=== PATIENT | male | born 1935 | race Caucasian/White ===

== ENCOUNTER 2017-09-03 14:49 | Inpatient (IN) | payer MEDICARE ==
[~2017-09-03] VITALS: Ht 182.9 cm; Wt 81.0 kg
[2017-09-03] VITALS (10 sets, daily range): BP systolic 112–113; BP diastolic 74–76; PULSE 68–70; RESP 16–18; TEMP 97.5–98.8; O2SAT 98–100
[~2017-09-03 14:49] MED LIST: AMLO5TAB96 PO; ASPI325T PO; CARV6.25 PO; CLON-352 PO; CLON.1 PO; DIAZ5 PO; HYDR25TA35 PO; LEVO.125 PO; NEUR600T PO; PACE200T4 PO; POTA-243 PO; PRAV80TA PO; PRED20 PO; SPIR25 PO; TAB-TAB PO; VITA500015 PO
[2017-09-03] MEDS ORDERED: SODIUM CHLORIDE 0.9% FLUSH 10 ML FLUSH IVF PRN (15:30)
[2017-09-03] MEDS ORDERED: FUROSEMIDE 40 MG/4 ML VIAL IV PUSH ONE (15:30)
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
[2017-09-03 15:49] LABS: AUTOMATED NEUTROPHIL # 2.8 TH/MM3 (1.8-7.7); BASOPHIL # 0.1 TH/MM3 (0-0.2); EOSINOPHIL # 0.1 TH/MM3 (0-0.4); EOSINOPHIL % 2.7 % (0.0-4.0); HEMOGLOBIN 13.7 GM/DL (13.0-17.0); LYMPH % 31.1 % (9.0-44.0); LYMPHOCYTE # 1.5 TH/MM3 (1.0-4.8); MEAN CELL VOLUME 90.9 FL (80.0-100.0); MEAN CORPUSCULAR HEMOGLOBIN 29.6 PG (27.0-34.0); MEAN CORPUSCULAR HGB CONC 32.6 % (32.0-36.0); MEAN PLATELET VOLUME 8.9 FL (7.0-11.0); MONO % 6.9 % (0.0-8.0); MONOCYTE # 0.3 TH/MM3 (0-0.9); NEUT % 57.3 % (16.0-70.0); PLATELET COUNT 166 TH/MM3 (150-450); RED BLOOD COUNT 4.62 MIL/MM3 (4.50-5.90); RED CELL DISTRIBUTION WIDTH 16.3 % (11.6-17.2); WHITE BLOOD COUNT 4.8 TH/MM3 (4.0-11.0)
[2017-09-03 15:59] LABS: INTERNATIONAL NORMALIZED RATIO 1.2 RATIO; PROTHROMBIN TIME - PATIENT 12.4 SEC (9.8-11.6)
[2017-09-03 16:14] LABS: ALBUMIN 3.1 GM/DL (3.4-5.0); AST (GOT) 35 U/L (15-37); BICARBONATE 32.3 MEQ/L (21.0-32.0); BLOOD UREA NITROGEN 22 MG/DL (7-18); CALCIUM 8.5 MG/DL (8.5-10.1); CHLORIDE 106 MEQ/L (98-107); CREATININE 1.53 MG/DL (0.60-1.30); GLOMERULAR FILTRATION RATE 44 ML/MIN (>89); GLUCOSE,RANDOM 86 MG/DL (74-106); MAGNESIUM 2.1 MG/DL (1.5-2.5); SODIUM (NA) 146 MEQ/L (136-145)
[2017-09-03 16:18] LABS: ALKALINE PHOSPHATASE 136 U/L (45-117); ALT (GPT) 11 U/L (12-78); TOTAL BILIRUBIN ADULT 1.1 MG/DL (0.2-1.0); TROPONIN I LESS THAN 0.02 NG/ML (0.02-0.05)
--- NOTE | 2017-09-03 16:29 | RADRPT ---
EXAM DATE/TIME: 09/03/2017 15:37 [facility] COMPARISON: No previous studies available for comparison. INDICATIONS : Chest pain MEDICAL HISTORY : Congestive heart failure. SURGICAL HISTORY : CABG. Pacemaker. ENCOUNTER: Initial ACUITY: 1 day PAIN SCORE: 2/10 LOCATION: Bilateral chest FINDINGS: Single AP view of the chest. Moderate-sized area of right lower lobe consolidation versus atelectasis and right pleural effusion. Mild left lower lobe atelectasis. No evidence of pneumothorax. Moderate cardiac silhouette enlargement. Median sternotomy wires noted. CONCLUSION: 1. Moderate-sized area of right lower lobe pulmonary consolidation/atelectasis and pleural effusion. 2. Mild left lung base atelectasis. 3. Moderate cardiac silhouette enlargement. Rico Sanchez MD on September 03, 2017 at 16:26 Board Certified Radiologist. This report was verified electronically.
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
[2017-09-03] MEDS ORDERED: ENOXAPARIN SODIUM 40 MG/0.4 ML SYRINGE SQ SCH (17:00)
[2017-09-03] MEDS ORDERED: NALOXONE HCL 0.4 MG/ML AMP IV PUSH PRN (17:00)
[2017-09-03] MEDS ORDERED: MAGNESIUM HYDROXIDE SUSP 30 ML CUP PO PRN (17:00)
[2017-09-03] MEDS ORDERED: SODIUM CHLORIDE 0.9% FLUSH 10 ML FLUSH IV FLUSH PRN (17:00)
[2017-09-03] MEDS ORDERED: POTASSIUM CHLORIDE 10 MEQ CONTROLLED RELEASE TAB PO ONE (17:00)
[2017-09-03] MEDS ORDERED: BISACODYL 10 MG SUPP RECTAL PRN (17:00)
[2017-09-03] MEDS ORDERED: SENNOSIDES 8.6 MG TAB PO PRN (17:00)
[2017-09-03] MEDS ORDERED: ONDANSETRON HCL 4 MG/2 ML VIAL IVP PRN (17:00)
[2017-09-03] MEDS ORDERED: LACTULOSE SYRUP 20 GM/30 ML CUP PO PRN (17:00)
[2017-09-03] MEDS ORDERED: ACETAMINOPHEN 325 MG TAB PO PRN (17:00)
[2017-09-03] MEDS ORDERED: TRAM50TA PO (18:00)
[2017-09-03] MEDS ORDERED: ZOLO50TA PO (18:00)
[2017-09-03] MEDS ORDERED: METOLAZONE 2.5 MG TAB PO ONE (19:45)
--- NOTE | 2017-09-03 19:51 | RADRPT ---
EXAM DATE/TIME: 09/03/2017 19:26 [facility] COMPARISON: No previous studies available for comparison. INDICATIONS : Abdominal pain. Lower left abdomen. MEDICAL HISTORY : None. SURGICAL HISTORY : None. ENCOUNTER: Subsequent ACUITY: 2 days PAIN SCORE: 7/10 LOCATION: Bilateral abdomen FINDINGS: Supine view of the abdomen was performed. The abdominal bowel gas pattern is normal. No abnormal ma sses, calcifications, or organomegaly is seen. The osseous structures are unremarkable. CONCLUSION: Benign-appearing abdomen. Harpreet Gasca MD on September 03, 2017 at 19:47 Board Certified Radiologist. This report was verified electronically.
[2017-09-03] MEDS ORDERED: DIAZEPAM 5 MG TAB PO PRN (20:00)
[2017-09-03] MEDS ORDERED: diphenhydrAMINE HCL 50 MG CAP PO PRN (20:00)
[2017-09-03] MEDS: AMIODARONE 200 MG TAB PO SCH (20:22)
[2017-09-03] MEDS: traMADol HCL 50 MG TAB PO SCH (20:22)
[2017-09-03] MEDS: DOCUSATE SODIUM 50 MG/SENNA 8.6 MG TAB PO SCH (20:23)
[2017-09-03] MEDS: GABAPENTIN 300 MG CAP PO SCH (20:23)
[2017-09-03] MEDS: POTASSIUM CHLORIDE 20 MEQ CONTROLLED RELEASE TAB PO SCH (20:23)
[2017-09-03] MEDS: SODIUM CHLORIDE 0.9% FLUSH 10 ML FLUSH IV FLUSH SCH (20:23)
[2017-09-03] MEDS: PRAVASTATIN SOD 80 MG TAB PO SCH (20:23)
[2017-09-03] MEDS: cloNIDine HCL 0.1 MG TAB PO SCH (20:25)
[2017-09-03] MEDS: DIAZEPAM 5 MG TAB PO SCH (20:54)
[2017-09-03] MEDS ORDERED: CLONIDINE HCL 0.1 MG PO SCH (21:00)
[2017-09-03] MEDS ORDERED: ACETAMINOPHEN/HYDROcodone 325 MG/5 MG TAB PO ONE (22:15)
[2017-09-04] VITALS (24 sets, daily range): BP systolic 101–126; BP diastolic 67–82; PULSE 69–70; RESP 16–18; TEMP 97.2–98.4; O2SAT 93–99
[2017-09-04 04:35] LABS: AUTOMATED NEUTROPHIL # 2.4 TH/MM3 (1.8-7.7); BASOPHIL # 0.1 TH/MM3 (0-0.2); BASOPHIL % 2.8 % (0.0-2.0); EOSINOPHIL # 0.1 TH/MM3 (0-0.4); EOSINOPHIL % 2.6 % (0.0-4.0); HEMATOCRIT 41.9 % (39.0-51.0); HEMOGLOBIN 13.4 GM/DL (13.0-17.0); LYMPH % 39.4 % (9.0-44.0); LYMPHOCYTE # 1.9 TH/MM3 (1.0-4.8); MEAN CELL VOLUME 90.8 FL (80.0-100.0); MEAN CORPUSCULAR HEMOGLOBIN 29.1 PG (27.0-34.0); MEAN CORPUSCULAR HGB CONC 32.1 % (32.0-36.0); MEAN PLATELET VOLUME 8.7 FL (7.0-11.0); MONO % 5.8 % (0.0-8.0); MONOCYTE # 0.3 TH/MM3 (0-0.9); NEUT % 49.4 % (16.0-70.0); PLATELET COUNT 161 TH/MM3 (150-450); RED BLOOD COUNT 4.61 MIL/MM3 (4.50-5.90); RED CELL DISTRIBUTION WIDTH 16.3 % (11.6-17.2); WHITE BLOOD COUNT 4.9 TH/MM3 (4.0-11.0)
[2017-09-04 04:51] LABS: BICARBONATE 26.8 MEQ/L (21.0-32.0); CALCIUM 8.3 MG/DL (8.5-10.1); CREATININE 1.39 MG/DL (0.60-1.30)
[2017-09-04] MEDS: LEVOTHYROXINE SODIUM 125 MCG TAB PO SCH (06:05)
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
[2017-09-04] MEDS: cloNIDine HCL 0.1 MG TAB PO SCH ×2 (09:00→21:00)
[2017-09-04] MEDS ORDERED: CARVEDILOL 6.25 MG TAB PO SCH (09:00)
[2017-09-04] MEDS: SODIUM CHLORIDE 0.9% FLUSH 10 ML FLUSH IV FLUSH SCH ×2 (10:24→22:43)
[2017-09-04] MEDS: FUROSEMIDE 40 MG/4 ML VIAL IV PUSH SCH (10:24)
[2017-09-04] MEDS: POTASSIUM CHLORIDE 20 MEQ CONTROLLED RELEASE TAB PO SCH ×2 (10:25→22:41)
[2017-09-04] MEDS: ASPIRIN 325 MG TAB PO SCH (10:26)
[2017-09-04] MEDS: CARVEDILOL 6.25 MG TAB PO SCH (10:26)
[2017-09-04] MEDS: DOCUSATE SODIUM 50 MG/SENNA 8.6 MG TAB PO SCH ×2 (10:26→22:42)
[2017-09-04] MEDS: SERTRALINE HCL 50 MG TAB PO SCH (10:26)
[2017-09-04] MEDS: HEPARIN SODIUM - SQ 10,000 UNITS/ML VIAL SQ SCH ×2 (10:27→22:37)
--- NOTE | 2017-09-04 11:07 | HHI.PR ---
Subjective Remarks In bed, sleepy, did not have a good sleep overnight. Less sob. Still feels very weak. No more abdominal pain. No n/v/d/c. Denies chest pain or palpitations. Objective Vitals Vital Signs Date Time Temp Pulse Resp B/P (MAP) Pulse Ox O2 Delivery O2 Flow Rate FiO2 09/04/17 10:00 69 09/04/17 09:00 69 09/04/17 08:00 97.9 69 18 101/70 (80) 99 09/04/17 08:00 69 09/04/17 08:00 99 Nasal Cannula 2.00 09/04/17 07:00 69 09/04/17 06:00 69 09/04/17 05:00 69 09/04/17 04:00 69 09/04/17 03:10 97.5 69 16 108/71 (83) 96 09/04/17 03:10 96 Nasal Cannula 2.00 09/04/17 03:00 69 09/04/17 02:00 69 09/04/17 01:00 69 09/04/17 00:00 69 09/03/17 23:05 95 Nasal Cannula 2.00 09/03/17 23:00 98 Nasal Cannula 3.00 09/03/17 23:00 97.6 70 18 112/75 (87) 98 09/03/17 23:00 69 09/03/17 22:00 68 09/03/17 21:00 68 09/03/17 20:00 68 09/03/17 19:45 Nasal Cannula 3.00 09/03/17 19:40 97.5 69 18 112/76 (88) 100 09/03/17 19:40 100 Nasal Cannula 3.50 09/03/17 19:00 69 09/03/17 18:00 68 09/03/17 17:41 09/03/17 17:30 70 09/03/17 15:28 100 Nasal Cannula 2.00 09/03/17 15:25 98.8 69 16 113/74 (87) 99 Nasal Cannula 2.00 I/O 09/03/17 09/03/17 09/03/17 09/04/17 09/04/17 09/04/17 07:00 15:00 23:00 07:00 15:00 23:00 Intake Total 480 ml Output Total 110 ml 500 ml Balance -110 ml -20 ml Intake Oral 480 ml Output Urine Total 110 ml 500 ml Bladder Scan Volume Amount 50 ml # Voids 1 1 # Bowel Movements 0 Result Diagram: 09/04/17 0358 09/04/17 0358 Imaging Last Impressions Chest X-Ray 09/03/17 1522 Signed Impressions: Service Date/Time: Sunday, September 03, 2017 15:37 - CONCLUSION: 1. Moderate-sized area of right lower lobe pulmonary consolidation/atelectasis and pleural effusion. 2. Mild left lung base atelectasis. 3. Moderate cardiac silhouette enlargement. Rico Sanchez MD Abdomen X-Ray 09/03/17 0000 Signed Impressions: Service Date/Time: Sunday, September 03, 2017 19:26 - CONCLUSION: Benign-appearing abdomen. Harpreet Gasca MD Objective Remarks GENERAL: This is a pleasant alert elderly male, well-nourished, well-developed patient, in no apparent distress. CARDIOVASCULAR: Regular rate and rhythm. RESPIRATORY: Breath sounds decreased bilaterally. Bibasilar crackles. No wheezes. GASTROINTESTINAL: Abdomen soft, non-tender, nondistended. No hepato-splenomegaly , or palpable masses. No guarding. MUSCULOSKELETAL: Extremities without clubbing, cyanosis. 3+ LE edema. No joint tenderness, effusion, or edema noted. No calf tenderness. Negative Homans sign bilaterally. NEUROLOGICAL: Awake and alert. Cranial nerves II through XII intact. Motor and sensory grossly within normal limits. Five out of 5 muscle strength in all muscle groups. Normal speech. A/P Assessment and Plan 82-year-old male with Systolic congestive heart failure now with exacerbation, per family EF low at 10 %, has AICD. Coronary artery disease with CABG and stents in the past. Chronic medical problems hypothyroidism, hypertension, hyperlipidemia, neuropathy. Monitor. Restart home medications as appropriate ED creatinine 1.53 on admission. Per family (daughter is a nurse , kidney is at baseline Cr baseline is around 2). Monitor kidney function avoid nephrotoxins if possible. Chest x-ray reviewed with right lower lobe pleural effusion, cardiomegaly Elevated BNP at 2674. Monitor Start Lasix 40 mg IV twice a day. Give one dose metolazone 2.5 mg .Monitor kidney function Replace potassium as noted low. Start potassium supplement as patient also on Lasix. Monitor electrolytes and replace as needed. Monitor on telemetry Ordered 2-D echo Consult cardiology family /patient requesting Dr Wright cardiology, ff Antiemetics laxatives as need NOTE: patient with ACEI severe allergy angioedema DVT prophylaxis SCD/teds/Lovenox Discussed Condition With Patient, family at bedside, nurse Tammy Lockhart MD Sep 04, 2017 11:07
[2017-09-04] MEDS ORDERED: POTASSIUM CHLORIDE 10 MEQ CONTROLLED RELEASE TAB PO ONE (11:15)
--- NOTE | 2017-09-04 18:13 | EKG ---
Date Performed: 09/03/2017 Time Performed: 15:41:41 PTAGE: 82 years EKG: ELECTRONIC ATRIAL PACEMAKER ELECTRONIC VENTRICULAR PACEMAKER Prolonged corrected QT interva l. ABNORMAL RHYTHM ECG PREVIOUS TRACING : 09/17/2011 17.14 DOCTOR: Ej Navarrete Interpretating Date/Time 09/04/2017 18:12:12
[2017-09-04] MEDS: GABAPENTIN 300 MG CAP PO SCH (22:39)
[2017-09-04] MEDS: PRAVASTATIN SOD 80 MG TAB PO SCH (22:40)
[2017-09-04] MEDS: AMIODARONE 200 MG TAB PO SCH (22:40)
[2017-09-04] MEDS: traMADol HCL 50 MG TAB PO SCH (22:41)
[2017-09-04] MEDS: DIAZEPAM 5 MG TAB PO SCH (22:42)
[2017-09-05] VITALS (31 sets, daily range): BP systolic 115–123; BP diastolic 65–85; PULSE 62–72; RESP 17–18; TEMP 97.4–98.4; O2SAT 95–99
[2017-09-05 05:14] LABS: AUTOMATED NEUTROPHIL # 2.4 TH/MM3 (1.8-7.7); BASOPHIL # 0.1 TH/MM3 (0-0.2); BASOPHIL % 1.8 % (0.0-2.0); EOSINOPHIL # 0.2 TH/MM3 (0-0.4); EOSINOPHIL % 4.5 % (0.0-4.0); HEMOGLOBIN 12.9 GM/DL (13.0-17.0); LYMPH % 31.9 % (9.0-44.0); LYMPHOCYTE # 1.4 TH/MM3 (1.0-4.8); MEAN CELL VOLUME 91.1 FL (80.0-100.0); MEAN CORPUSCULAR HEMOGLOBIN 29.4 PG (27.0-34.0); MEAN CORPUSCULAR HGB CONC 32.2 % (32.0-36.0); MEAN PLATELET VOLUME 8.8 FL (7.0-11.0); MONO % 6.8 % (0.0-8.0); MONOCYTE # 0.3 TH/MM3 (0-0.9); PLATELET COUNT 163 TH/MM3 (150-450); RED BLOOD COUNT 4.39 MIL/MM3 (4.50-5.90); RED CELL DISTRIBUTION WIDTH 16.4 % (11.6-17.2); WHITE BLOOD COUNT 4.4 TH/MM3 (4.0-11.0)
[2017-09-05 05:36] LABS: BICARBONATE 30.1 MEQ/L (21.0-32.0); CALCIUM 8.5 MG/DL (8.5-10.1); CREATININE 1.41 MG/DL (0.60-1.30)
[2017-09-05] MEDS: LEVOTHYROXINE SODIUM 125 MCG TAB PO SCH (05:53)
--- NOTE | 2017-09-05 07:35 | HHI.PR ---
Subjective Remarks Feels less sob. He is however still complaining of lower abdominal pain .Says she had a BM/ No fever or chills.No cough. LE edema improved some. Objective Vitals Vital Signs Date Time Temp Pulse Resp B/P (MAP) Pulse Ox O2 Delivery O2 Flow Rate FiO2 09/05/17 07:14 69 09/05/17 07:14 Nasal Cannula 2.00 09/05/17 06:01 69 09/05/17 05:00 69 09/05/17 04:00 69 09/05/17 03:33 98.4 70 17 120/83 (95) 96 09/05/17 03:00 69 09/05/17 03:00 96 Nasal Cannula 2.00 09/05/17 02:00 69 09/05/17 01:05 69 09/05/17 00:00 69 09/04/17 23:52 18 09/04/17 23:01 98 Nasal Cannula 2.00 09/04/17 23:00 97.2 70 17 126/82 (97) 98 09/04/17 23:00 69 09/04/17 21:00 69 09/04/17 19:00 93 Nasal Cannula 2.00 09/04/17 19:00 98.4 70 16 107/71 (83) 93 09/04/17 19:00 69 09/04/17 18:00 69 09/04/17 17:00 69 09/04/17 16:00 98 Nasal Cannula 2.00 09/04/17 16:00 69 09/04/17 15:59 98.2 69 18 118/77 (91) 98 09/04/17 15:00 69 09/04/17 14:00 69 09/04/17 13:00 69 09/04/17 12:00 98.0 69 18 112/67 (82) 99 09/04/17 12:00 69 09/04/17 11:31 99 Nasal Cannula 2.00 09/04/17 11:00 69 09/04/17 10:00 69 09/04/17 09:00 69 09/04/17 08:00 97.9 69 18 101/70 (80) 99 09/04/17 08:00 69 09/04/17 08:00 99 Nasal Cannula 2.00 I/O 1/29/18 1/09/04/17 09/05/17 09/05/17 09/05/17 07:00 15:00 23:00 07:00 15:00 23:00 Intake Total 480 ml 565 ml 240 ml Output Total 500 ml 925 ml 550 ml Balance -20 ml -360 ml -310 ml Intake Oral 480 ml 565 ml 240 ml Output Urine Total 500 ml 925 ml 550 ml Bladder Scan Volume Amount 50 ml # Voids 1 # Bowel Movements 0 0 Result Diagram: 09/05/17 0356 09/05/17 0356 Imaging Last Impressions Chest X-Ray 09/03/17 1522 Signed Impressions: Service Date/Time: Sunday, September 03, 2017 15:37 - CONCLUSION: 1. Moderate-sized area of right lower lobe pulmonary consolidation/atelectasis and pleural effusion. 2. Mild left lung base atelectasis. 3. Moderate cardiac silhouette enlargement. Rico Sanchez MD Abdomen X-Ray 09/03/17 0000 Signed Impressions: Service Date/Time: Sunday, September 03, 2017 19:26 - CONCLUSION: Benign-appearing abdomen. Harpreet Gasca MD Objective Remarks GENERAL: This is a pleasant alert elderly male, well-nourished, well-developed patient, in no apparent distress. CARDIOVASCULAR: Regular rate and rhythm. RESPIRATORY: Breath sounds decreased bilaterally. Bibasilar crackles. No wheezes. GASTROINTESTINAL: Abdomen soft, non-tender, nondistended. No hepato-splenomegaly , or palpable masses. No guarding. MUSCULOSKELETAL: Extremities without clubbing, cyanosis. 3+ LE edema. No joint tenderness, effusion, or edema noted. No calf tenderness. Negative Homans sign bilaterally. NEUROLOGICAL: Awake and alert. Cranial nerves II through XII intact. Motor and sensory grossly within normal limits. Five out of 5 muscle strength in all muscle groups. Normal speech. A/P Assessment and Plan 82-year-old male with Systolic congestive heart failure now with exacerbation, per family EF low at 10 %, has AICD. Coronary artery disease with CABG and stents in the past. Chronic medical problems hypothyroidism, hypertension, hyperlipidemia, neuropathy. Monitor. Restart home medications as appropriate ED creatinine 1.53 on admission. Per family (daughter is a nurse , kidney is at baseline Cr baseline is around 2). Monitor kidney function avoid nephrotoxins if possible. Chest x-ray reviewed with right lower lobe pleural effusion, cardiomegaly Elevated BNP at 2674. Monitor Start Lasix 40 mg IV twice a day. Give one dose metolazone 2.5 mg .Monitor kidney function Replace potassium as noted low. Start potassium supplement as patient also on Lasix. Monitor electrolytes and replace as needed. Monitor on telemetry Ordered 2-D echo Consult cardiology family /patient requesting Dr Wright cardiology, ff . Discussed with Dr Wright OK to DC from cardiac standpoint Antiemetics laxatives as need NOTE: patient with ACEI severe allergy angioedema DVT prophylaxis SCD/teds/Lovenox Discussed Condition With Patient, nurse, cardiology Dr Kyle SIMON plan: Poss DC tomorrow Tammy Lockhart MD Sep 05, 2017 07:35
[2017-09-05] MEDS ORDERED: POTASSIUM CHLORIDE 10 MEQ CONTROLLED RELEASE TAB PO ONE (07:45)
--- NOTE | 2017-09-05 08:18 | PD.CARD.PN ---
Subjective Subjective Remarks Complains of lower abdominal discomfort. Denies any chest pain, shortness breath, or palpitations. Reports good urine output and had negative fluid balance overnight. (Rodolfo Ca) Objective Medications Current Medications Medications (Trade) Dose Ordered Sig/Mike Route Start Time Stop Time Status Last Admin (NS Flush) 2 ml UNSCH PRN IV FLUSH 09/03/17 17:00 (NS Flush) 2 ml BID IV FLUSH 09/03/17 21:00 09/04/17 22:43 (Tylenol) 650 mg Q4H PRN PO 09/03/17 17:00 (Zofran Inj) 4 mg Q6H PRN IVP 09/03/17 17:00 09/04/17 03:42 (Narcan Inj) 0.4 mg UNSCH PRN IV PUSH 09/03/17 17:00 (Maddie-Colace) 1 tab BID PO 09/03/17 21:00 09/04/17 22:42 (Milk Of Magnesia Liq) 30 ml Q12H PRN PO 09/03/17 17:00 (Senokot) 17.2 mg Q12H PRN PO 09/03/17 17:00 (Dulcolax Supp) 10 mg DAILY PRN RECTAL 09/03/17 17:00 (Lactulose Liq) 30 ml DAILY PRN PO 09/03/17 17:00 (Lasix Inj) 40 mg BID@ IV PUSH 09/04/17 09:00 09/04/17 10:24 (KCl) 20 meq Q12HR PO 09/03/17 21:00 09/04/17 22:41 (Heparin Inj) 5,000 units Q12HR SQ 09/04/17 09:00 09/04/17 22:37 (Benadryl) 50 mg HS PRN PO 09/03/17 20:00 09/03/17 23:57 (Cordarone) 200 mg HS PO 09/03/17 21:00 09/04/17 22:40 (Aspirin) 325 mg DAILY PO 09/04/17 09:00 09/04/17 10:26 (Valium) 5 mg HS PO 09/03/17 21:00 09/04/17 22:42 (Synthroid) 125 mcg DAILY@0600 PO 1/29/18 06:00 09/05/17 05:53 (Pravachol) 80 mg HS PO 09/03/17 21:00 09/04/17 22:40 (Zoloft) 50 mg DAILY PO 09/04/17 09:00 09/04/17 10:26 (Valium) 5 mg DAILY PRN PO 09/03/17 20:00 (Ultram) 50 mg HS PO 09/03/17 21:00 09/04/17 22:41 (Neurontin) 300 mg HS PO 09/03/17 21:00 09/04/17 22:39 (Catapres) 0.1 mg BID PO 09/03/17 21:00 (Coreg) 3.125 mg DAILY PO 09/04/17 09:00 09/04/17 10:26 Vital Signs / I&O Vital Signs Date Time Temp Pulse Resp B/P (MAP) Pulse Ox O2 Delivery O2 Flow Rate FiO2 09/05/17 08:06 96 Nasal Cannula 1.00 09/05/17 07:14 69 09/05/17 07:14 Nasal Cannula 2.00 09/05/17 06:01 69 09/05/17 05:00 69 09/05/17 04:00 69 09/05/17 03:33 98.4 70 17 120/83 (95) 96 09/05/17 03:00 69 09/05/17 03:00 96 Nasal Cannula 2.00 09/05/17 02:00 69 09/05/17 01:05 69 09/05/17 00:00 69 09/04/17 23:52 18 09/04/17 23:01 98 Nasal Cannula 2.00 09/04/17 23:00 97.2 70 17 126/82 (97) 98 09/04/17 23:00 69 09/04/17 21:00 69 09/04/17 19:00 93 Nasal Cannula 2.00 09/04/17 19:00 98.4 70 16 107/71 (83) 93 09/04/17 19:00 69 09/04/17 18:00 69 09/04/17 17:00 69 09/04/17 16:00 98 Nasal Cannula 2.00 09/04/17 16:00 69 09/04/17 15:59 98.2 69 18 118/77 (91) 98 09/04/17 15:00 69 09/04/17 14:00 69 09/04/17 13:00 69 09/04/17 12:00 98.0 69 18 112/67 (82) 99 09/04/17 12:00 69 09/04/17 11:31 99 Nasal Cannula 2.00 09/04/17 11:00 69 09/04/17 10:00 69 09/04/17 09:00 69 I/O 09/04/17 09/04/17 09/04/17 09/05/17 09/05/17 09/05/17 07:00 15:00 23:00 07:00 15:00 23:00 Intake Total 480 ml 565 ml 240 ml Output Total 500 ml 925 ml 550 ml Balance -20 ml -360 ml -310 ml Intake Oral 480 ml 565 ml 240 ml Output Urine Total 500 ml 925 ml 550 ml Bladder Scan Volume Amount 50 ml # Voids 1 # Bowel Movements 0 0 Physical Exam GENERAL: Well-developed well-nourished. In no acute distress. NECK: No carotid bruits. No JVD. CARDIOVASCULAR: Regular rate and rhythm. No murmur appreciated. RESPIRATORY: No accessory muscle use. Clear to auscultation. Breath sounds equal bilaterally. MUSCULOSKELETAL: No clubbing or cyanosis. Trace edema. NEUROLOGICAL: Awake and alert. Normal speech. Laboratory Laboratory Tests Test 09/05/17 03:56 White Blood Count 4.4 TH/MM3 Red Blood Count 4.39 MIL/MM3 Hemoglobin 12.9 GM/DL Hematocrit 40.0 % Mean Corpuscular Volume 91.1 FL Mean Corpuscular Hemoglobin 29.4 PG Mean Corpuscular Hemoglobin Concent 32.2 % Red Cell Distribution Width 16.4 % Platelet Count 163 TH/MM3 Mean Platelet Volume 8.8 FL Neutrophils (%) (Auto) 55.0 % Lymphocytes (%) (Auto) 31.9 % Monocytes (%) (Auto) 6.8 % Eosinophils (%) (Auto) 4.5 % Basophils (%) (Auto) 1.8 % Neutrophils # (Auto) 2.4 TH/MM3 Lymphocytes # (Auto) 1.4 TH/MM3 Monocytes # (Auto) 0.3 TH/MM3 Eosinophils # (Auto) 0.2 TH/MM3 Basophils # (Auto) 0.1 TH/MM3 CBC Comment DIFF FINAL Differential Comment Blood Urea Nitrogen 23 MG/DL Creatinine 1.41 MG/DL Random Glucose 72 MG/DL Calcium Level 8.5 MG/DL Magnesium Level 2.0 MG/DL Sodium Level 145 MEQ/L Potassium Level 3.3 MEQ/L Chloride Level 106 MEQ/L Carbon Dioxide Level 30.1 MEQ/L Anion Gap 9 MEQ/L Estimat Glomerular Filtration Rate 48 ML/MIN B-Type Natriuretic Peptide 2798 PG/ML Imaging Last Impressions Chest X-Ray 09/03/17 1522 Signed Impressions: Service Date/Time: Sunday, September 03, 2017 15:37 - CONCLUSION: 1. Moderate-sized area of right lower lobe pulmonary consolidation/atelectasis and pleural effusion. 2. Mild left lung base atelectasis. 3. Moderate cardiac silhouette enlargement. Rico Sanchez MD Abdomen X-Ray 09/03/17 0000 Signed Impressions: Service Date/Time: Sunday, September 03, 2017 19:26 - CONCLUSION: Benign-appearing abdomen. Harpreet Gasca MD (Rodolfo Ca) Assessment and Plan Assessment and Plan 82-year-old male with a past medical history of systolic CHF EF 10%, AICD/pacer , ventricular fibrillation, CAD s/p CABG HTN, HLD, hypothyroidism, chronic pain , anxiety/depression. The patient recently relocated to the area to live with his daughter from [place] and has not established with any physicians here yet, was following with cardiology Care. For the past month or so he's been having progressively worsening shortness of breath, abdominal distention, and lower extremity swelling. He's been taking Lasix 3 times a day at home with no improvement. Received IV Lasix and metolazone yesterday, reports good urine output overnight. Shortness of breath may be mildly improved overnight. Patient denies any chest pain or palpitations. Acute exacerbation of chronic systolic CHF/ Continue IV diuresis, monitor I's and O's. Ischemic cardiomyopathy EF 10%: Single-lead AICD in place, device rep to interrogate. Apparently not a candidate for BiV device, may need EP evaluation here to confirm no BiV. Echo has been ordered. Continue low-dose carvedilol./ RB with angioedema. CAD: Stable. Continue aspirin and statin. Ventricular pacer in place: Stable. Continue amiodarone. ED versus CKD: Improving. Monitor renal function with diuresis. (Rodolfo Ca) Assessment and Plan continue diuresis. CR improved. Monitor U.OP. SOB improved. DC planning for tomorrow? (Alhaji Wright MD) Rodolfo Ca Sep 05, 2017 08:18 Alhaji Wright MD Sep 05, 2017 11:54
[2017-09-05] MEDS: POTASSIUM CHLORIDE 20 MEQ CONTROLLED RELEASE TAB PO SCH ×2 (09:27→20:10)
[2017-09-05] MEDS: DOCUSATE SODIUM 50 MG/SENNA 8.6 MG TAB PO SCH ×2 (09:28→20:11)
[2017-09-05] MEDS: cloNIDine HCL 0.1 MG TAB PO SCH ×2 (09:28→20:10)
[2017-09-05] MEDS: SERTRALINE HCL 50 MG TAB PO SCH (09:28)
[2017-09-05] MEDS: CARVEDILOL 6.25 MG TAB PO SCH (09:29)
[2017-09-05] MEDS: ASPIRIN 325 MG TAB PO SCH (09:30)
[2017-09-05] MEDS: SODIUM CHLORIDE 0.9% FLUSH 10 ML FLUSH IV FLUSH SCH ×2 (09:30→20:11)
[2017-09-05] MEDS: HEPARIN SODIUM - SQ 10,000 UNITS/ML VIAL SQ SCH ×2 (09:31→20:10)
[2017-09-05] MEDS: FUROSEMIDE 40 MG/4 ML VIAL IV PUSH SCH ×2 (09:39→18:32)
--- NOTE | 2017-09-05 11:43 | ECHRPT ---
Indication: CONCLUSIONS Moderately dilated left ventricle. Wall thickness is normal. The left ventricular systolic function is severely reduced with an estimated ejection fraction less than 20%. There is diffuse global hypokinesis with distinct regional wall motion abnormalities. The right ventricle is mildly dilated. The left atrial size is [id number] dilated. The right atrial size is mildly dilated. Mild thickening of the mitral valve leaflets. Mild mitral valve regurgitation. Mitral annular calcification is present. No mitral valve stenosis. Aortic valve sclerosis is present. Mild aortic valve regurgitation. Moderate aortic valve stenosis (low gradient aortic stenosis likely due to poor cardiac output) Aortic valve area is 0.81 cm. Aortic valve mean gradient is 9 mmHg. Mild thickening of the tricuspid valve leaflets. There is mild to moderate tricuspid valve regurgitation. The estimated pulmonary arterial pressure is 33.4 mmHg. Normal estimated pulmonary pressures. BP: 101 / 70 HR: Rhythm: MEASUREMENTS (Male / Female) Normal Values Technical Quality: 2D ECHO LV Diastolic Diameter PLAX 6.2 cm 4.2 - 5.9 / 3.9 - 5.3 cm LV Systolic Diameter PLAX 5.9 cm IVS Diastolic Thickness 1.0 cm 0.6 - 1.0 / 0.6 - 0.9 cm LVPW Diastolic Thickness 1.0 cm 0.6 - 1.0 / 0.6 - 0.9 cm LV Relative Wall Thickness 0.3 RV Internal Dim ED PLAX 4.1 cm LVOT Diameter 2.3 cm Aortic Root Diameter 3.5 cm LA Systolic Diameter LX 4.6 cm 3.0 - 4.0 / 2.7 - 3.8 cm DOPPLER AV Peak Velocity 194.0 cm/s AV Peak Gradient 15.1 mmHg AV Mean Gradient 9.0 mmHg AV Velocity Time Integral 38.3 cm LVOT Peak Velocity 40.6 cm/s LVOT Peak Gradient 0.7 mmHg LVOT Velocity Time Integral 7.4 cm AV Area Cont Eq vti 0.8 cm AV Area Cont Eq pk 0.9 cm Mitral E Point Velocity 65.2 cm/s Mitral A Point Velocity 73.1 cm/s Mitral E to A Ratio 0.9 LV E' Lateral Velocity 7.6 cm/s Mitral E to LV E' Lateral Ratio 8.6 LV E' Septal Velocity 3.4 cm/s Mitral E to LV E' Septal Ratio 19.0 TR Peak Velocity 242.0 cm/s TR Peak Gradient 23.4 mmHg Right Atrial Pressure 10.0 mmHg Pulmonary Artery Systolic Pressu 33.4 mmHg Right Ventricular Systolic Press 33.4 mmHg PV Peak Velocity 43.6 cm/s PV Peak Gradient 0.8 mmHg FINDINGS LEFT VENTRICLE Moderately dilated left ventricle. Wall thickness is normal. The left ventricular systolic function is severely reduced with an estimated ejection fraction less than 20%. There is diffuse global hypokinesis with distinct regional wall motion abnormalities. RIGHT VENTRICLE The right ventricle is mildly dilated. LEFT ATRIUM The left atrial size is rlps-[id number] dilated. RIGHT ATRIUM The right atrial size is mildly dilated. ATRIAL SEPTUM Normal atrial septal thickness without atrial level shunting by limited color doppler interrogation. AORTA The aortic root and proximal ascending aorta are normal in size on limited imaging. MITRAL VALVE Mild thickening of the mitral valve leaflets. Mild mitral valve regurgitation. Mitral annular calcification is present. No mitral valve stenosis. AORTIC VALVE Trileaflet aortic valve. Aortic valve sclerosis is present. Mild aortic valve regurgitation. Moderate aortic valve stenosis (low gradient aortic stenosis likely due to poor cardiac output) Aortic valve area is 0.81 cm. Aortic valve mean gradient is 9 mmHg. TRICUSPID VALVE Mild thickening of the tricuspid valve leaflets. There is mild to moderate tricuspid valve regurgitation. The estimated pulmonary arterial pressure is 33.4 mmHg. Normal estimated pulmonary pressures. PULMONARY VALVE No pulmonary valve regurgitation or stenosis. VESSELS The inferior vena cava is normal in size. PERICARDIUM No pericardial effusion. Alhaji Wright MD, FACC Edited by: [employer] (Electronically Signed) Final Date:04 September 2017 16:36 Amended: 05 September 2017 11:41
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
[2017-09-05] MEDS: traMADol HCL 50 MG TAB PO SCH (20:09)
[2017-09-05] MEDS: GABAPENTIN 300 MG CAP PO SCH (20:09)
[2017-09-05] MEDS: AMIODARONE 200 MG TAB PO SCH (20:10)
[2017-09-05] MEDS: PRAVASTATIN SOD 80 MG TAB PO SCH (20:10)
[2017-09-05] MEDS: DIAZEPAM 5 MG TAB PO SCH (20:10)
[2017-09-05] MEDS ORDERED: DIATRIZOATE MEGLUM/DIATRIZOATE SOD 9 ML CUP PO ONE (20:15)
[2017-09-06] VITALS (27 sets, daily range): BP systolic 91–120; BP diastolic 52–79; PULSE 67–73; RESP 17–22; TEMP 96.8–98.5; O2SAT 94–98
[2017-09-06] MEDS ORDERED: ATROPINE SULFATE 1 MG/10 ML SYRINGE ONE ×2 (00:14→10:50)
[2017-09-06] MEDS ORDERED: EPINEPHrine HCL (1:10,000) 1 MG/10 ML SYRINGE ONE ×2 (00:15→10:51)
--- NOTE | 2017-09-06 00:52 | RADRPT ---
EXAM DATE/TIME: 09/06/2017 00:21 [place] COMPARISON: No previous studies available for comparison. INDICATIONS : Lower abdominal pain. ORAL CONTRAST: Prescribed oral contrast ingested. RADIATION DOSE: 6.91 CTDIvol (mGy) MEDICAL HISTORY : Congestive heart failure. Cardiovascular disease SURGICAL HISTORY : CABG Pacemaker. ENCOUNTER: Initial ACUITY: 3 months PAIN SCALE: 7/10 LOCATION: Bilateral lower quadrant TECHNIQUE: Volumetric scanning of the abdomen and pelvis was performed. Using automated exposure control and ad justment of the mA and/or kV according to patient size, radiation dose was kept as low as reasonably achievable to obtain optimal diagnostic quality images. DICOM format image data is available electro nically for review and comparison. FINDINGS: Moderate size right pleural effusion and [id number] left effusion with basilar atelectasis. There is mild ascites and anasarca as well. Small cyst left lobe liver. Spleen, adrenals and pancreas unremarkable. 5.7 cm right renal cyst and small left renal cyst also present. No bowel obstruction. No adenopathy. No free air. Incidental note made of a 3.2 cm abdominal aortic aneurysm. CONCLUSION: 1. Bilateral pleural effusion, right greater than left. Also mild ascites and anasarca. Pacer leads i n right atrium and right ventricle with cardiomegaly. 2. Mild 3.2 cm abdominal aortic aneurysm. Bilateral renal cysts and left lobe hepatic cyst. 3. Dense coronary calcifications. Aditya Aponte MD on September 06, 2017 at 0:43 Board Certified Radiologist. This report was verified electronically.
[2017-09-06 04:15] LABS: AUTOMATED NEUTROPHIL # 2.8 TH/MM3 (1.8-7.7); BASOPHIL # 0.1 TH/MM3 (0-0.2); BASOPHIL % 1.5 % (0.0-2.0); EOSINOPHIL # 0.2 TH/MM3 (0-0.4); EOSINOPHIL % 4.5 % (0.0-4.0); HEMOGLOBIN 12.3 GM/DL (13.0-17.0); LYMPHOCYTE # 1.4 TH/MM3 (1.0-4.8); MEAN CELL VOLUME 91.3 FL (80.0-100.0); MEAN CORPUSCULAR HEMOGLOBIN 29.6 PG (27.0-34.0); MEAN CORPUSCULAR HGB CONC 32.5 % (32.0-36.0); MEAN PLATELET VOLUME 8.6 FL (7.0-11.0); MONO % 6.1 % (0.0-8.0); MONOCYTE # 0.3 TH/MM3 (0-0.9); NEUT % 57.9 % (16.0-70.0); PLATELET COUNT 157 TH/MM3 (150-450); RED BLOOD COUNT 4.16 MIL/MM3 (4.50-5.90); RED CELL DISTRIBUTION WIDTH 16.4 % (11.6-17.2); WHITE BLOOD COUNT 4.8 TH/MM3 (4.0-11.0)
[2017-09-06 04:33] LABS: BICARBONATE 31.7 MEQ/L (21.0-32.0); CALCIUM 8.4 MG/DL (8.5-10.1); CREATININE 1.43 MG/DL (0.60-1.30)
[2017-09-06] MEDS: LEVOTHYROXINE SODIUM 125 MCG TAB PO SCH (06:14)
--- NOTE | 2017-09-06 08:18 | PD.CARD.PN ---
Subjective Subjective Remarks Continues to complain of lower abdominal discomfort. Continues to report shortness of breath. Denies any chest pain or palpitations. Reports urine output has decreased. (Rodolfo Ca) Objective Medications Current Medications Medications (Trade) Dose Ordered Sig/Mike Route Start Time Stop Time Status Last Admin (NS Flush) 2 ml UNSCH PRN IV FLUSH 09/03/17 17:00 (NS Flush) 2 ml BID IV FLUSH 09/03/17 21:00 09/05/17 20:11 (Tylenol) 650 mg Q4H PRN PO 09/03/17 17:00 (Zofran Inj) 4 mg Q6H PRN IVP 09/03/17 17:00 09/04/17 03:42 (Narcan Inj) 0.4 mg UNSCH PRN IV PUSH 09/03/17 17:00 (Maddie-Colace) 1 tab BID PO 09/03/17 21:00 09/05/17 09:28 (Milk Of Magnesia Liq) 30 ml Q12H PRN PO 09/03/17 17:00 (Senokot) 17.2 mg Q12H PRN PO 09/03/17 17:00 (Dulcolax Supp) 10 mg DAILY PRN RECTAL 09/03/17 17:00 (Lactulose Liq) 30 ml DAILY PRN PO 09/03/17 17:00 09/05/17 09:32 (Lasix Inj) 40 mg BID@ IV PUSH 09/04/17 09:00 09/05/17 18:32 (KCl) 20 meq Q12HR PO 09/03/17 21:00 09/05/17 20:10 (Heparin Inj) 5,000 units Q12HR SQ 09/04/17 09:00 09/05/17 20:10 (Benadryl) 50 mg HS PRN PO 09/03/17 20:00 09/03/17 23:57 (Cordarone) 200 mg HS PO 09/03/17 21:00 09/05/17 20:10 (Aspirin) 325 mg DAILY PO 09/04/17 09:00 09/05/17 09:30 (Valium) 5 mg HS PO 09/03/17 21:00 09/05/17 20:10 (Synthroid) 125 mcg DAILY@0600 PO 09/04/17 06:00 09/06/17 06:14 (Pravachol) 80 mg HS PO 09/03/17 21:00 09/05/17 20:10 (Zoloft) 50 mg DAILY PO 09/04/17 09:00 09/05/17 09:28 (Valium) 5 mg DAILY PRN PO 09/03/17 20:00 (Ultram) 50 mg HS PO 09/03/17 21:00 09/05/17 20:09 (Neurontin) 300 mg HS PO 09/03/17 21:00 09/05/17 20:09 (Catapres) 0.1 mg BID PO 09/03/17 21:00 09/05/17 20:10 (Coreg) 3.125 mg DAILY PO 09/04/17 09:00 09/05/17 09:29 Vital Signs / I&O Vital Signs Date Time Temp Pulse Resp B/P (MAP) Pulse Ox O2 Delivery O2 Flow Rate FiO2 09/06/17 08:05 96 Nasal Cannula 2.00 09/06/17 07:08 96 Room Air 09/06/17 07:08 97.8 70 18 120/76 (91) 96 09/06/17 06:03 69 09/06/17 05:04 69 09/06/17 04:03 69 09/06/17 03:19 96.8 73 17 95/62 (73) 95 09/06/17 03:18 95 Room Air 2.00 09/06/17 03:00 69 09/06/17 02:00 69 09/06/17 00:03 69 09/05/17 23:11 97.4 70 17 123/79 (94) 97 09/05/17 23:08 97 Room Air 1.00 09/05/17 23:00 69 09/05/17 22:00 69 09/05/17 21:43 17 09/05/17 21:00 69 09/05/17 20:02 96 21 09/05/17 20:00 69 09/05/17 19:38 98.2 70 17 118/78 (91) 96 09/05/17 19:00 69 09/05/17 19:00 96 Room Air 1.00 09/05/17 18:00 68 09/05/17 17:00 68 09/05/17 16:00 68 09/05/17 15:30 Room Air 1.00 09/05/17 15:30 98.0 72 18 121/65 (83) 99 09/05/17 15:00 69 09/05/17 14:00 68 09/05/17 13:00 68 09/05/17 12:00 69 09/05/17 11:00 62 09/05/17 11:00 95 Room Air 09/05/17 11:00 97.8 70 17 115/70 (85) 95 09/05/17 10:19 62 09/05/17 09:00 68 09/05/17 08:34 70 18 117/85 (96) 99 I/O 09/05/17 09/05/17 09/05/17 09/06/17 09/06/17 09/06/17 07:00 15:00 23:00 07:00 15:00 23:00 Intake Total 240 ml 900 ml 960 ml Output Total 550 ml 1000 ml 650 ml Balance -310 ml -100 ml 310 ml Intake Oral 240 ml 900 ml 960 ml Output Urine Total 550 ml 1000 ml 650 ml # Bowel Movements 2 Physical Exam GENERAL: Well-developed well-nourished. In no acute distress. NECK: No carotid bruits. No JVD. CARDIOVASCULAR: Regular rate and rhythm. No murmur appreciated. RESPIRATORY: No accessory muscle use. Clear to auscultation. Left basilar crackles. MUSCULOSKELETAL: No clubbing or cyanosis. 1+ edema. NEUROLOGICAL: Awake and alert. Normal speech. Laboratory Laboratory Tests Test 09/06/17 03:51 White Blood Count 4.8 TH/MM3 Red Blood Count 4.16 MIL/MM3 Hemoglobin 12.3 GM/DL Hematocrit 38.0 % Mean Corpuscular Volume 91.3 FL Mean Corpuscular Hemoglobin 29.6 PG Mean Corpuscular Hemoglobin Concent 32.5 % Red Cell Distribution Width 16.4 % Platelet Count 157 TH/MM3 Mean Platelet Volume 8.6 FL Neutrophils (%) (Auto) 57.9 % Lymphocytes (%) (Auto) 30.0 % Monocytes (%) (Auto) 6.1 % Eosinophils (%) (Auto) 4.5 % Basophils (%) (Auto) 1.5 % Neutrophils # (Auto) 2.8 TH/MM3 Lymphocytes # (Auto) 1.4 TH/MM3 Monocytes # (Auto) 0.3 TH/MM3 Eosinophils # (Auto) 0.2 TH/MM3 Basophils # (Auto) 0.1 TH/MM3 CBC Comment DIFF FINAL Differential Comment Blood Urea Nitrogen 23 MG/DL Creatinine 1.43 MG/DL Random Glucose 84 MG/DL Calcium Level 8.4 MG/DL Sodium Level 142 MEQ/L Potassium Level 3.4 MEQ/L Chloride Level 104 MEQ/L Carbon Dioxide Level 31.7 MEQ/L Anion Gap 6 MEQ/L Estimat Glomerular Filtration Rate 47 ML/MIN B-Type Natriuretic Peptide 2050 PG/ML Imaging Last Impressions Abdomen/Pelvis CT 09/05/17 0000 Signed Impressions: Service Date/Time: Wednesday, September 06, 2017 00:21 - CONCLUSION: 1. Bilateral pleural effusion, right greater than left. Also mild ascites and anasarca. Pacer leads in right atrium and right ventricle with cardiomegaly. 2. Mild 3.2 cm abdominal aortic aneurysm. Bilateral renal cysts and left lobe hepatic cyst. 3. Dense coronary calcifications. Aditya Aponte MD Chest X-Ray 09/03/17 1522 Signed Impressions: Service Date/Time: Sunday, September 03, 2017 15:37 - CONCLUSION: 1. Moderate-sized area of right lower lobe pulmonary consolidation/atelectasis and pleural effusion. 2. Mild left lung base atelectasis. 3. Moderate cardiac silhouette enlargement. Rico Sanchez MD Abdomen X-Ray 09/03/17 0000 Signed Impressions: Service Date/Time: Sunday, September 03, 2017 19:26 - CONCLUSION: Benign-appearing abdomen. Harpreet Gasca MD (Rodolfo Ca) Assessment and Plan Assessment and Plan 82-year-old male with a past medical history of systolic CHF EF 10%, AICD/pacer , ventricular fibrillation, CAD s/p CABG HTN, HLD, hypothyroidism, chronic pain , anxiety/depression. The patient recently relocated to the area to live with his daughter from [place] and has not established with any physicians here yet, was following with cardiology Care. For the past month or so he's been having progressively worsening shortness of breath, abdominal distention, and lower extremity swelling. He's been taking Lasix 3 times a day at home with no improvement. Received IV Lasix and metolazone yesterday, reports good urine output overnight. Shortness of breath may be mildly improved overnight. Patient denies any chest pain or palpitations. Acute exacerbation of chronic systolic CHF: Continue IV diuresis, monitor I's and O's. Many thoracentesis, defer to hospitalist. Ischemic cardiomyopathy EF 10%: Apparently not a candidate for BiV device, may need EP evaluation here to confirm no BiV. Echo with EF less than 20%. Continue low-dose carvedilol. No ACEi or ARB with angioedema. CAD: Stable. Continue aspirin and statin. Single-lead AICD/ventricular pacer in place: Device interrogated by rep 09/04 with no events noted. Stable. Continue amiodarone. Aortic valve disease: Moderate stenosis and mild regurgitation seen on echo. ED versus CKD: Improved. Monitor renal function with diuresis. (Rodolfo Ca) Assessment and Plan complicated case with severe cardiomyopathy. clinically seems to be a little improved but still SOB. edema in legs better. lungs little better but+ effusion. ?thoracentesis may help if he is willing continue current diuretic regimen. monitor Cr and urine output. only other option would be short term milrinone to improve kidney perfusion for diuresis, but hope to avoid. need to discuss care objectives with daughter (Alhaji Wright MD) Rodolfo Ca Sep 06, 2017 08:18 Alhaji Wright MD Sep 06, 2017 08:39
[2017-09-06] MEDS ORDERED: DIAZ5 PO (08:55)
[2017-09-06] MEDS ORDERED: FURO40TA PO (08:55)
[2017-09-06] MEDS ORDERED: TRAM50TA PO (08:55)
--- NOTE | 2017-09-06 08:55 | HHI.DCPOC ---
Discharge Care Plan Goals to Promote Your Health * To prevent worsening of your condition and complications * To maintain your health at the optimal level Directions to Meet Your Goals Take your medications as prescribed Follow your dietary instruction Follow activity as directed Keep your appointments as scheduled Take your immunizations and boosters as scheduled If your symptoms worsen call your PCP, if no PCP go to Urgent Care Center or Emergency Room Smoking is Dangerous to Your Health. Avoid second hand smoke Call the 24-hour hour crisis hotline for domestic abuse at Tammy Lockhart MD Sep 06, 2017 08:55
--- NOTE | 2017-09-06 08:58 | HHI.DS ---
Discharge Summary Admission Date Sep 03, 2017 at 16:39 Discharge Date: Sep 07, 2017 Admitting Diagnosis chf exacerbation, pleural effusion (1) CHF exacerbation ICD Code: I50.9 - Heart failure, unspecified Status: Acute (2) CHF (NYHA class IV, ACC/AHA stage D) ICD Code: I50.9 - Heart failure, unspecified Procedures thoracocentesis 09/06/17 Brief History - From Admission 82-year-old male with past medical history of Systolic congestive heart failure , with EF of 10% per family, AICD, hypothyroidism, hypertension, hyperlipidemia , presents with his family with difficulty breathing that has been progressive over the past couple of weeks. It is gotten worse over the past couple of days. His daughter who is a nurse states she is been giving him 60 of Lasix in the morning with 20 in the afternoon and 20 in the evening but she cannot get his fluid under control. When the ambulance team got there his oxygen level was low and they placed him on oxygen. He does not wear oxygen at home. He is from [place] and does not have a car dryer here. He feels worse when he moves around. History is mainly obtained from the family. Daughter is a nurse. Patient also complains of nausea but no vomiting, he was able to eat in the morning. He also complains of some lower abdominal pain , bladder scan doesn 't show urinary retention. Denies diarrhea or constipation, last BM was yesterday. Urine OP fairly well after lasix. Patient still with sob. No cough, fever or chills. no palpitations. Patient doesn;t have a cardiology Dr here, however would prefer Dr Wright as cardiology. CBC/BMP: 09/06/17 0351 09/06/17 0351 Significant Findings Laboratory Tests Test 09/03/17 15:33 09/04/17 03:58 09/05/17 03:56 09/06/17 03:51 Prothrombin Time 12.4 SEC (9.8-11.6) Blood Urea Nitrogen 22 MG/DL (7-18) 21 MG/DL (7-18) 23 MG/DL (7-18) 23 MG/DL (7-18) Creatinine 1.53 MG/DL (0.60-1.30) 1.39 MG/DL (0.60-1.30) 1.41 MG/DL (0.60-1.30) 1.43 MG/DL (0.60-1.30) Albumin 3.1 GM/DL (3.4-5.0) Alkaline Phosphatase 136 U/L (45-117) Alanine Aminotransferase (ALT/SGPT) 11 U/L (12-78) Total Bilirubin 1.1 MG/DL (0.2-1.0) Sodium Level 146 MEQ/L (136-145) Potassium Level 3.2 MEQ/L (3.5-5.1) 3.4 MEQ/L (3.5-5.1) 3.3 MEQ/L (3.5-5.1) 3.4 MEQ/L (3.5-5.1) Carbon Dioxide Level 32.3 MEQ/L (21.0-32.0) Estimat Glomerular Filtration Rate 44 ML/MIN (>89) 49 ML/MIN (>89) 48 ML/MIN (>89) 47 ML/MIN (>89) Troponin I LESS THAN 0.02 NG/ML B-Type Natriuretic Peptide 2674 PG/ML (0-100) 2798 PG/ML (0-100) 2050 PG/ML (0-100) Basophils (%) (Auto) 2.8 % (0.0-2.0) Calcium Level 8.3 MG/DL (8.5-10.1) 8.4 MG/DL (8.5-10.1) Chloride Level 108 MEQ/L (98-107) Red Blood Count 4.39 MIL/MM3 (4.50-5.90) 4.16 MIL/MM3 (4.50-5.90) Hemoglobin 12.9 GM/DL (13.0-17.0) 12.3 GM/DL (13.0-17.0) Eosinophils (%) (Auto) 4.5 % (0.0-4.0) 4.5 % (0.0-4.0) Random Glucose 72 MG/DL (74-106) Hematocrit 38.0 % (39.0-51.0) Imaging Last Impressions Thoracentesis Ultrasound 09/06/17 0000 Signed Impressions: Service Date/Time: Wednesday, September 06, 2017 11:02 - CONCLUSION: Uncomplicated ultrasound guided thoracentesis. Fluid was sent for ordered studies. Vladimir Olivas MD FACR Chest X-Ray 09/06/17 0000 Signed Impressions: Service Date/Time: Wednesday, September 06, 2017 11:26 - CONCLUSION: Bibasilar densities greater right lower lobe. No pneumothorax. Charan Ames MD Chest Ultrasound 09/06/17 0000 Signed Impressions: Service Date/Time: Wednesday, September 06, 2017 11:06 - CONCLUSION: No significant fluid. Vladimir Olivas MD FACR Abdomen/Pelvis CT 09/05/17 0000 Signed Impressions: Service Date/Time: Wednesday, September 06, 2017 00:21 - CONCLUSION: 1. Bilateral pleural effusion, right greater than left. Also mild ascites and anasarca. Pacer leads in right atrium and right ventricle with cardiomegaly. 2. Mild 3.2 cm abdominal aortic aneurysm. Bilateral renal cysts and left lobe hepatic cyst. 3. Dense coronary calcifications. Aditya Aponte MD Abdomen X-Ray 09/03/17 0000 Signed Impressions: Service Date/Time: Sunday, September 03, 2017 19:26 - CONCLUSION: Benign-appearing abdomen. Harpreet Gasca MD PE at Discharge GENERAL: This is a pleasant alert elderly male, well-nourished, well-developed patient, in no apparent distress. CARDIOVASCULAR: Regular rate and rhythm. RESPIRATORY: Breath sounds decreased bilaterally. Bibasilar crackles. No wheezes. GASTROINTESTINAL: Abdomen soft, non-tender, nondistended. No hepato-splenomegaly , or palpable masses. No guarding. MUSCULOSKELETAL: Extremities without clubbing, cyanosis. 3+ LE edema. No joint tenderness, effusion, or edema noted. No calf tenderness. Negative Homans sign bilaterally. NEUROLOGICAL: Awake and alert. Cranial nerves II through XII intact. Motor and sensory grossly within normal limits. Five out of 5 muscle strength in all muscle groups. Normal speech. Hospital Course 82-year-old male with Systolic congestive heart failure now with exacerbation, per family EF low at 10 %, has AICD. Coronary artery disease with CABG and stents in the past. Chronic medical problems hypothyroidism, hypertension, hyperlipidemia, neuropathy. Monitor. Restart home medications as appropriate. ED creatinine 1.53 on admission. Per family (daughter is a nurse , kidney is at baseline Cr baseline is around 2). Monitor kidney function avoid nephrotoxins if possible. Chest x-ray reviewed with right lower lobe pleural effusion, cardiomegaly Elevated BNP at 2674. Monitor Start Lasix 40 mg IV twice a day. Give one dose metolazone 2.5 mg .Monitor kidney function Replace potassium as noted low. Start potassium supplement as patient also on Lasix. Monitor electrolytes and replace as needed. Monitor on telemetry 2-D echo with EF less than 20% Consult cardiology family /patient requesting Dr Wright cardiology, ff . Discussed with Dr Wright OK to DC from cardiac standpoint Antiemetics laxatives as need NOTE: patient with ACEI severe allergy angioedema Discussed with Dr Wright cardiology, patient might benefit to have thoracentesis as with bilateral pleural effusions worse on the right. S/p thoracentesis both diagnostic and therapeutic, ~ 800 cc fluid removed. Clinically improved despite worsening BNP. Cleared by cardiology for DC, to follow up as OP. DVT prophylaxis SCD/teds/Lovenox Discussed Condition With Patient, nurse, family DC plan: Cleared by cardiology for DC. Also no plan for any GI interventions as patient with high cardiac risk. dC to rehab in stable condition expect soon decompensation Expect decompensation and readmission to the hospital as patient with very low EF, AICD, can't be on entresto as with severe reaction angioedema to ACEI. Expect frequent hospitalization for decompensation. Pt Condition on Discharge: Stable Discharge Disposition: Discharge to SNF Discharge Time: > 30 minutes Discharge Instructions DIET: Follow Instructions for: Heart Healthy Diet Activities you can perform: Regular-No Restrictions Follow up Referrals: Cardiology - 1 Week with Alhaji Wright MD PCP Follow-up - 2-3 Days New Medications: Furosemide (Furosemide) 40 Mg Tab 40 MG PO DAILY for chf, #30 TAB 0 Refills Diazepam (Valium) 5 Mg Tab 5 MG PO HS for anxiety, #20 TAB Continued Medications: Amiodarone 200 mg (Pacerone 200 mg) 200 Mg Tab 200 MG PO HS Amlodipine Besylate (Norvasc) 5 Mg Tab 5 MG PO DAILY Aspirin (Aspirin) 325 Mg Tab 325 MG PO DAILY Carvedilol 6.25 mg (Coreg 6.25 mg) 6.25 Mg Tab 6.25 MG PO DAILY Cholecalciferol (Vitamin D3) 5,000 Unit Cap 5000 UNIT PO DAILY Clonidine HCl (Adhd) (Clonidine HCl ER) 0.1 Mg Tab 0.1 MG PO BID Gabapentin (Neurontin) 600 Mg Tab 1200 MG PO DIRECTED Hydralazine HCl (Hydralazine HCl) 25 Mg Tab 25 MG PO BID Levothyroxine Sodium (Synthroid) 125 Mcg Tab 125 MCG PO DAILY Multiple Vitamin (Multivitamin) 1 Tab Tab 1 TAB PO DAILY Potassium Chloride (Klor-Con 10 Meq) 10 Meq Tabcr 20 MEQ PO HS Pravachol (Pravachol) 80 Mg Tab 80 MG PO HS Prednisone (Deltasone) 20 Mg Tab 60 MG PO DAILY, #15 TAB FOR 5 DAYS Sertraline (Zoloft) 50 Mg Tab 50 MG PO DAILY, #30 TAB 0 Refills Spironolactone (Aldactone 25 mg) 25 Mg Tab 25 MG PO DAILY Tramadol (Tramadol) 50 Mg Tab 50 MG PO Q4H PRN for PAIN, #30 TAB 0 Refills (This prescription has been renewed ) Discontinued Medications: Clonidine 0.1 mg (Catapres 0.1 mg) 0.1 Mg Tab 0.1 MG PO BID, TAB Diazepam (Diazepam) 5 Mg Tab 5 MG PO DIRECTED Tammy Lockhart MD Sep 06, 2017 08:58
[2017-09-06] MEDS: DOCUSATE SODIUM 50 MG/SENNA 8.6 MG TAB PO SCH ×2 (09:00→22:03)
[2017-09-06] MEDS ORDERED: POTASSIUM CHLORIDE 10 MEQ CONTROLLED RELEASE TAB PO ONE (09:30)
[2017-09-06 09:59] LABS: HEMOGLOBIN 13.7 GM/DL (13.0-17.0); MEAN CELL VOLUME 90.9 FL (80.0-100.0); MEAN CORPUSCULAR HEMOGLOBIN 29.5 PG (27.0-34.0); MEAN CORPUSCULAR HGB CONC 32.5 % (32.0-36.0); MEAN PLATELET VOLUME 8.5 FL (7.0-11.0); PLATELET COUNT 196 TH/MM3 (150-450); RED BLOOD COUNT 4.62 MIL/MM3 (4.50-5.90); RED CELL DISTRIBUTION WIDTH 16.8 % (11.6-17.2); WHITE BLOOD COUNT 4.6 TH/MM3 (4.0-11.0)
[2017-09-06 10:18] LABS: INTERNATIONAL NORMALIZED RATIO 1.2 RATIO; PROTHROMBIN TIME - PATIENT 12.2 SEC (9.8-11.6)
[2017-09-06] MEDS: FUROSEMIDE 40 MG/4 ML VIAL IV PUSH SCH ×2 (10:33→17:11)
[2017-09-06] MEDS: POTASSIUM CHLORIDE 20 MEQ CONTROLLED RELEASE TAB PO SCH ×2 (10:36→22:06)
[2017-09-06] MEDS: cloNIDine HCL 0.1 MG TAB PO SCH ×3 (10:36→22:03)
[2017-09-06] MEDS: CARVEDILOL 6.25 MG TAB PO SCH (10:36)
[2017-09-06] MEDS: SERTRALINE HCL 50 MG TAB PO SCH (10:37)
[2017-09-06] MEDS: HEPARIN SODIUM - SQ 10,000 UNITS/ML VIAL SQ SCH ×2 (10:38→22:09)
[2017-09-06] MEDS: ASPIRIN 325 MG TAB PO SCH (10:38)
[2017-09-06] MEDS: SODIUM CHLORIDE 0.9% FLUSH 10 ML FLUSH IV FLUSH SCH ×2 (10:40→22:07)
[2017-09-06] MEDS ORDERED: LIDOCAINE HCL 2% 100 MG/5 ML SYRINGE ONE (10:51)
--- NOTE | 2017-09-06 11:33 | RADRPT ---
EXAM DATE/TIME: 09/06/2017 09:54 [facility] COMPARISON: CHEST SINGLE AP, September 03, 2017, 15:37. INDICATIONS : Pleural effusion. MEDICAL HISTORY : Congestive heart failure. Hypertension SURGICAL HISTORY : CABG. Pacemaker. ENCOUNTER: Subsequent ACUITY: 4 - 6 days PAIN SCORE: 8/10 LOCATION: Stomach. FINDINGS: A single AP erect expiratory view of the chest was obtained. This again demonstrates a moderate size right pleural effusion without significant change. There is a small left effusion. There is no pneumo thorax. The patient is again noted be status post median sternotomy. The left subclavian AV sequentia l transvenous pacer remains in place. Multiple old healed right rib fractures are present. CONCLUSION: No significant change in the bilateral pleural effusions right greater than left. Juan Ferreira MD on September 06, 2017 at 11:22 Board Certified Radiologist. This report was verified electronically.
--- NOTE | 2017-09-06 11:57 | RADRPT ---
EXAM DATE/TIME: 09/06/2017 11:26 [facility] COMPARISON: CHEST SINGLE AP, September 06, 2017, 9:54. INDICATIONS : Post Thoracentesis MEDICAL HISTORY : Congestive heart failure. Hypertension SURGICAL HISTORY : CABG. Pacemaker. ENCOUNTER: Initial ACUITY: 1 day PAIN SCORE: 0/10 LOCATION: Right chest FINDINGS: A single frontal expiratory view of the chest was performed. Bibasilar densities, greater right lower lobe. The cardio-mediastinal contours and bronchopulmonary markings are unremarkable for an expiratory exam . Osseous structures are intact. CONCLUSION: Bibasilar densities greater right lower lobe. No pneumothorax. Charan Ames MD on September 06, 2017 at 11:51 Board Certified Radiologist. This report was verified electronically.
[2017-09-06 12:33] LABS: TOTAL PROTEIN,PLEURAL FLUID 2.2 GM/DL
[2017-09-06 12:49] LABS: PLEURAL FLUID RBC 57 /MM3 (0-0); PLEURAL FLUID WBC 182 /MM3 (0-10)
[2017-09-06 12:52] LABS: PLEURAL FLUID HISTIOCYTES 9 %; PLEURAL FLUID LYMPHS 67 %; PLEURAL FLUID MESOTHELIAL 2 %; PLEURAL FLUID MONOS 17 %; PLEURAL FLUID POLYS (SEGS) 5 %
--- NOTE | 2017-09-06 14:31 | RADRPT ---
EXAM DATE/TIME: 09/06/2017 11:02 [facility] COMPARISON: No previous studies available for comparison. INDICATIONS : Right pleural effusion. MEDICAL HISTORY : Congestive heart failure. Cardiovascular disease SURGICAL HISTORY : CABG Pacemaker. ENCOUNTER: Initial ACUITY: 1 day PAIN SCORE: 0/10 LOCATION: Right chest FLUID: Total volume of 850 cc of clear, yellow fluid was removed. Fluid was sent to lab for ordered studies. TECHNIQUE: 1. Ultrasound guidance for thoracentesis. 2. Thoracentesis. The risks, benefits, and alternatives to ultrasound guided thoracentesis were explained to the patien t in lay simple terms, including the risk of bleeding and infection. Written and verbal informed con sent was obtained. Appropriate area for thoracentesis was marked under ultrasound guidance with the patient in the uprig ht position. Overlying skin was prepped and draped in the usual sterile fashion and with local anest hetic, a dermatotomy was made with an 11 blade scalpel. A 6 Lithuanian thoracentesis catheter was placed in the pleural space and fluid was removed. Catheter was then removed and a sterile dressing applie d. There were no immediate complications. The patient tolerated the procedure well and the left the ultrasound suite in stable condition. Chest radiograph is to be obtained. CONCLUSION: Uncomplicated ultrasound guided thoracentesis. Fluid was sent for ordered studies. Vladimir Olivas MD FACR on September 06, 2017 at 14:25 Board Certified Radiologist. This report was verified electronically.
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
--- NOTE | 2017-09-06 15:06 | HHI.PR ---
Subjective Remarks Seen earlier in the morning. Patient in the chair. With sob. No chest norton at this time. No abd pain. He is complaining of neuropathic pain in his legs. Objective Vitals Vital Signs Date Time Temp Pulse Resp B/P (MAP) Pulse Ox O2 Delivery O2 Flow Rate FiO2 09/06/17 11:14 97.5 70 20 111/74 (86) 94 09/06/17 08:05 96 Nasal Cannula 2.00 09/06/17 07:08 96 Room Air 09/06/17 07:08 97.8 70 18 120/76 (91) 96 09/06/17 06:03 69 09/06/17 05:04 69 09/06/17 04:03 69 09/06/17 03:19 96.8 73 17 95/62 (73) 95 09/06/17 03:18 95 Room Air 2.00 09/06/17 03:00 69 09/06/17 02:00 69 09/06/17 00:03 69 09/05/17 23:11 97.4 70 17 123/79 (94) 97 09/05/17 23:08 97 Room Air 1.00 09/05/17 23:00 69 09/05/17 22:00 69 09/05/17 21:43 17 09/05/17 21:00 69 09/05/17 20:02 96 21 09/05/17 20:00 69 09/05/17 19:38 98.2 70 17 118/78 (91) 96 09/05/17 19:00 69 09/05/17 19:00 96 Room Air 1.00 09/05/17 18:00 68 09/05/17 17:00 68 09/05/17 16:00 68 09/05/17 15:30 Room Air 1.00 09/05/17 15:30 98.0 72 18 121/65 (83) 99 I/O 09/05/17 09/05/17 09/05/17 09/06/17 09/06/17 09/06/17 07:00 15:00 23:00 07:00 15:00 23:00 Intake Total 240 ml 900 ml 960 ml Output Total 550 ml 1000 ml 650 ml Balance -310 ml -100 ml 310 ml Intake Oral 240 ml 900 ml 960 ml Output Urine Total 550 ml 1000 ml 650 ml # Bowel Movements 2 Result Diagram: 09/06/17 0943 09/06/17 0351 Imaging Last Impressions Thoracentesis Ultrasound 09/06/17 0000 Signed Impressions: Service Date/Time: Wednesday, September 06, 2017 11:02 - CONCLUSION: Uncomplicated ultrasound guided thoracentesis. Fluid was sent for ordered studies. Vladimir Olivas MD FACR Chest X-Ray 09/06/17 0000 Signed Impressions: Service Date/Time: Wednesday, September 06, 2017 11:26 - CONCLUSION: Bibasilar densities greater right lower lobe. No pneumothorax. Charan Ames MD Chest Ultrasound 09/06/17 0000 Signed Impressions: Service Date/Time: Wednesday, September 06, 2017 11:06 - CONCLUSION: No significant fluid. Vladimir Olivas MD FACR Abdomen/Pelvis CT 09/05/17 0000 Signed Impressions: Service Date/Time: Wednesday, September 06, 2017 00:21 - CONCLUSION: 1. Bilateral pleural effusion, right greater than left. Also mild ascites and anasarca. Pacer leads in right atrium and right ventricle with cardiomegaly. 2. Mild 3.2 cm abdominal aortic aneurysm. Bilateral renal cysts and left lobe hepatic cyst. 3. Dense coronary calcifications. Aditya Aponte MD Abdomen X-Ray 09/03/17 0000 Signed Impressions: Service Date/Time: Sunday, September 03, 2017 19:26 - CONCLUSION: Benign-appearing abdomen. Harpreet Gasca MD Objective Remarks GENERAL: This is a pleasant alert elderly male, well-nourished, well-developed patient, in no apparent distress. CARDIOVASCULAR: Regular rate and rhythm. RESPIRATORY: Breath sounds decreased bilaterally. Bibasilar crackles. No wheezes. GASTROINTESTINAL: Abdomen soft, non-tender, nondistended. No hepato-splenomegaly , or palpable masses. No guarding. MUSCULOSKELETAL: Extremities without clubbing, cyanosis. 3+ LE edema. No joint tenderness, effusion, or edema noted. No calf tenderness. Negative Homans sign bilaterally. NEUROLOGICAL: Awake and alert. Cranial nerves II through XII intact. Motor and sensory grossly within normal limits. Five out of 5 muscle strength in all muscle groups. Normal speech. A/P Assessment and Plan 82-year-old male with Systolic congestive heart failure now with exacerbation, per family EF low at 10 %, has AICD. Coronary artery disease with CABG and stents in the past. Chronic medical problems hypothyroidism, hypertension, hyperlipidemia, neuropathy. Monitor. Restart home medications as appropriate. ED creatinine 1.53 on admission. Per family (daughter is a nurse , kidney is at baseline Cr baseline is around 2). Monitor kidney function avoid nephrotoxins if possible. Chest x-ray reviewed with right lower lobe pleural effusion, cardiomegaly Elevated BNP at 2674. Monitor Start Lasix 40 mg IV twice a day. Give one dose metolazone 2.5 mg .Monitor kidney function Replace potassium as noted low. Start potassium supplement as patient also on Lasix. Monitor electrolytes and replace as needed. Monitor on telemetry 2-D echo with EF less than 20% Consult cardiology family /patient requesting Dr Wright cardiology, ff . Discussed with Dr Wright OK to DC from cardiac standpoint Antiemetics laxatives as need NOTE: patient with ACEI severe allergy angioedema Discussed with Dr Wright cardiology, patient might benefit to have thoracentesis as with bilateral pleural effusions worse on the right. Will do thoracentesis both diagnostic and therapeutic DVT prophylaxis SCD/teds/Lovenox Discussed Condition With Patient, nurse, cardiology Dr Kyle SIMON plan: DC when cleared by consultants. Needs rehab Tammy Lockhart MD Sep 06, 2017 15:06
[2017-09-06] MEDS ORDERED: ACETAMINOPHEN/HYDROcodone 325 MG/5 MG TAB PO PRN (15:15)
[2017-09-06] MEDS ORDERED: LIDOCAINE HCL 1% 20 ML VIAL ONE (15:57)
--- NOTE | 2017-09-06 16:39 | HHI.GIFU ---
Subjective Remarks Patient was laying in bed, seems to be comfortable, less abdominal discomfort less abdominal distention, had CT scan of the abdomen last night Objective Vitals I&O Vital Signs Date Time Temp Pulse Resp B/P (MAP) Pulse Ox O2 Delivery O2 Flow Rate FiO2 09/06/17 11:14 97.5 70 20 111/74 (86) 94 09/06/17 08:05 96 Nasal Cannula 2.00 09/06/17 07:08 96 Room Air 09/06/17 07:08 97.8 70 18 120/76 (91) 96 09/06/17 06:03 69 09/06/17 05:04 69 09/06/17 04:03 69 09/06/17 03:19 96.8 73 17 95/62 (73) 95 09/06/17 03:18 95 Room Air 2.00 09/06/17 03:00 69 09/06/17 02:00 69 09/06/17 00:03 69 09/05/17 23:11 97.4 70 17 123/79 (94) 97 09/05/17 23:08 97 Room Air 1.00 09/05/17 23:00 69 09/05/17 22:00 69 09/05/17 21:43 17 09/05/17 21:00 69 09/05/17 20:02 96 21 09/05/17 20:00 69 09/05/17 19:38 98.2 70 17 118/78 (91) 96 09/05/17 19:00 69 09/05/17 19:00 96 Room Air 1.00 09/05/17 18:00 68 09/05/17 17:00 68 I/O 09/05/17 09/05/17 09/05/17 09/06/17 09/06/17 09/06/17 07:00 15:00 23:00 07:00 15:00 23:00 Intake Total 240 ml 900 ml 960 ml Output Total 550 ml 1000 ml 650 ml Balance -310 ml -100 ml 310 ml Intake Oral 240 ml 900 ml 960 ml Output Urine Total 550 ml 1000 ml 650 ml # Bowel Movements 2 Laboratory Laboratory Tests Test 09/06/17 03:51 09/06/17 09:43 09/06/17 11:15 White Blood Count 4.8 4.6 Red Blood Count 4.16 4.62 Hemoglobin 12.3 13.7 Hematocrit 38.0 42.0 Mean Corpuscular Volume 91.3 90.9 Mean Corpuscular Hemoglobin 29.6 29.5 Mean Corpuscular Hemoglobin Concent 32.5 32.5 Red Cell Distribution Width 16.4 16.8 Platelet Count 157 196 Mean Platelet Volume 8.6 8.5 Neutrophils (%) (Auto) 57.9 Lymphocytes (%) (Auto) 30.0 Monocytes (%) (Auto) 6.1 Eosinophils (%) (Auto) 4.5 Basophils (%) (Auto) 1.5 Neutrophils # (Auto) 2.8 Lymphocytes # (Auto) 1.4 Monocytes # (Auto) 0.3 Eosinophils # (Auto) 0.2 Basophils # (Auto) 0.1 CBC Comment DIFF FINAL Differential Comment Blood Urea Nitrogen 23 Creatinine 1.43 Random Glucose 84 Calcium Level 8.4 Sodium Level 142 Potassium Level 3.4 Chloride Level 104 Carbon Dioxide Level 31.7 Anion Gap 6 Estimat Glomerular Filtration Rate 47 B-Type Natriuretic Peptide 2050 Prothrombin Time 12.2 Prothromb Time International Ratio 1.2 Activated Partial Thromboplast Time 30.4 Pleural Fluid pH 8.0 Pleural Fluid WBC 182 Pleural Fluid RBC 57 Pleural Fluid Neutrophils 5 Pleural Fluid Lymphocytes 67 Pleural Fluid Monocytes 17 Pleural Fluid Histiocytes 9 Pleural Fluid Mesothelial Cells 2 Pleural Fluid Comment Pleural Fluid Total Protein 2.2 Pleural Fluid LDH 60 Pleural Fluid Glucose 99 Date/Time Source Procedure Growth Status 09/06/17 11:15 Fluid Pleural Fluid Fungal Smear Pending Received 09/06/17 11:15 Fluid Pleural Fluid Fungal Culture Pending Received Physical Exam HEENT: Pupils round and reactive to light; normocephalic; atraumatic; no jaundice. Throat is clear. NECK: Neck is supple, no JVD, no lymphadenopathy. CHEST: Chest is clear to auscultation and percussion. CARDIAC: Regular rate and rhythm with no murmur gallop or rubs. ABDOMEN: Soft, nondistended, nontender; no hepatosplenomegaly; bowel sounds are present in all four quadrants. EXTREMITIES: No clubbing, cyanosis, or edema. SKIN: Normal; no rash; no jaundice. SWITCH TENDER: No focal deficits; alert and oriented times three. Assessment and Plan Plan Patient was seen and examined, agree with above-noted, patient has poor cardiac function 5-10%, would not be good candidate for any procedures that require anesthesia or invasive, his hemoglobin is stable his symptom is very vague not sure if this is musculoskeletal we will plan on doing abdominal and pelvic CT with oral contrast only because his kidney functions are not good further plan depends on the findings and how the patient is 09/06/2017 patient seems to be more comfortable CT scan show large pleural effusion he had tap today, also he has anasarca which most likely causing his abdominal discomfort, minimal ascites, no significant finding in the abdomen, I had a discussion with his daughter and I think most likely this is what causing his discomfort, and we will deferred the treatment to cardiology to try to control his fluid overload which I think it will help his abdominal discomfort we will follow up as needed thank you for the consultation, Jc Moore MD Sep 06, 2017 16:39
[2017-09-06] MEDS ORDERED: GABAPENTIN 300 MG CAP PO ONE (17:00)
[2017-09-06] MEDS: DIAZEPAM 5 MG TAB PO SCH ×2 (21:00→22:03)
[2017-09-06] MEDS: PRAVASTATIN SOD 80 MG TAB PO SCH (22:03)
[2017-09-06] MEDS: GABAPENTIN 300 MG CAP PO SCH (22:06)
[2017-09-06] MEDS: AMIODARONE 200 MG TAB PO SCH (22:06)
[2017-09-06] MEDS: traMADol HCL 50 MG TAB PO SCH (22:08)
[2017-09-07] VITALS (14 sets, daily range): BP systolic 87–115; BP diastolic 54–73; PULSE 65–84; RESP 18–21; TEMP 97.3–98.9; O2SAT 95–98
[2017-09-07 04:12] LABS: AUTOMATED NEUTROPHIL # 2.8 TH/MM3 (1.8-7.7); BASOPHIL # 0.1 TH/MM3 (0-0.2); BASOPHIL % 2.1 % (0.0-2.0); EOSINOPHIL # 0.1 TH/MM3 (0-0.4); EOSINOPHIL % 2.1 % (0.0-4.0); HEMATOCRIT 40.2 % (39.0-51.0); LYMPHOCYTE # 1.4 TH/MM3 (1.0-4.8); MEAN CELL VOLUME 90.1 FL (80.0-100.0); MEAN CORPUSCULAR HEMOGLOBIN 29.2 PG (27.0-34.0); MEAN CORPUSCULAR HGB CONC 32.4 % (32.0-36.0); MEAN PLATELET VOLUME 8.5 FL (7.0-11.0); MONO % 6.7 % (0.0-8.0); MONOCYTE # 0.3 TH/MM3 (0-0.9); NEUT % 60.1 % (16.0-70.0); PLATELET COUNT 171 TH/MM3 (150-450); RED BLOOD COUNT 4.46 MIL/MM3 (4.50-5.90); RED CELL DISTRIBUTION WIDTH 16.8 % (11.6-17.2); WHITE BLOOD COUNT 4.7 TH/MM3 (4.0-11.0)
[2017-09-07 04:40] LABS: BICARBONATE 30.5 MEQ/L (21.0-32.0); CALCIUM 8.9 MG/DL (8.5-10.1); CREATININE 1.35 MG/DL (0.60-1.30)
[2017-09-07] MEDS: LEVOTHYROXINE SODIUM 125 MCG TAB PO SCH (05:51)
[2017-09-07] MEDS ORDERED: GABAPENTIN 100 MG CAP PO PRN (07:30)
--- NOTE | 2017-09-07 07:33 | PD.CARD.PN ---
Subjective Subjective Remarks Had thoracentesis yesterday. Reports shortness of breath is improved today. Reports good urine output and had negative fluid balance overnight. Denies any chest pain. Objective Medications Current Medications Medications (Trade) Dose Ordered Sig/Mike Route Start Time Stop Time Status Last Admin (NS Flush) 2 ml UNSCH PRN IV FLUSH 09/03/17 17:00 (NS Flush) 2 ml BID IV FLUSH 09/03/17 21:00 09/06/17 22:07 (Tylenol) 650 mg Q4H PRN PO 09/03/17 17:00 (Zofran Inj) 4 mg Q6H PRN IVP 09/03/17 17:00 09/04/17 03:42 (Narcan Inj) 0.4 mg UNSCH PRN IV PUSH 09/03/17 17:00 (Maddie-Colace) 1 tab BID PO 09/03/17 21:00 09/06/17 22:03 (Milk Of Magnesia Liq) 30 ml Q12H PRN PO 09/03/17 17:00 (Senokot) 17.2 mg Q12H PRN PO 09/03/17 17:00 (Dulcolax Supp) 10 mg DAILY PRN RECTAL 09/03/17 17:00 (Lactulose Liq) 30 ml DAILY PRN PO 09/03/17 17:00 09/05/17 09:32 (Lasix Inj) 40 mg BID@ IV PUSH 09/04/17 09:00 09/06/17 17:11 (KCl) 20 meq Q12HR PO 09/03/17 21:00 09/06/17 22:06 (Heparin Inj) 5,000 units Q12HR SQ 09/04/17 09:00 09/06/17 22:09 (Benadryl) 50 mg HS PRN PO 09/03/17 20:00 09/03/17 23:57 (Cordarone) 200 mg HS PO 09/03/17 21:00 09/06/17 22:06 (Aspirin) 325 mg DAILY PO 09/04/17 09:00 09/06/17 10:38 (Valium) 5 mg HS PO 09/03/17 21:00 09/05/17 20:10 (Synthroid) 125 mcg DAILY@0600 PO 09/04/17 06:00 09/07/17 05:51 (Pravachol) 80 mg HS PO 09/03/17 21:00 09/06/17 22:03 (Zoloft) 50 mg DAILY PO 09/04/17 09:00 09/06/17 10:37 (Valium) 5 mg DAILY PRN PO 09/03/17 20:00 (Ultram) 50 mg HS PO 09/03/17 21:00 09/06/17 22:08 (Neurontin) 300 mg HS PO 09/03/17 21:00 09/06/17 22:06 (Catapres) 0.1 mg BID PO 09/03/17 21:00 09/06/17 10:36 (Coreg) 3.125 mg DAILY PO 09/04/17 09:00 09/06/17 10:36 (Sassafras 5-325 Mg) 1 tab Q6H PRN PO 09/06/17 15:15 Vital Signs / I&O Vital Signs Date Time Temp Pulse Resp B/P (MAP) Pulse Ox O2 Delivery O2 Flow Rate FiO2 09/07/17 06:00 70 09/07/17 05:00 69 09/07/17 04:00 68 09/07/17 03:00 98.9 70 21 98/62 (74) 97 09/07/17 03:00 97 Nasal Cannula 1.00 09/07/17 03:00 70 09/06/17 23:10 22 09/06/17 23:00 98.5 70 22 115/79 (91) 96 09/06/17 23:00 69 09/06/17 23:00 96 Nasal Cannula 1.00 09/06/17 22:00 70 09/06/17 21:00 67 09/06/17 19:00 70 09/06/17 19:00 98.2 70 18 91/52 (65) 96 09/06/17 19:00 96 Nasal Cannula 1.00 09/06/17 18:00 69 09/06/17 17:00 69 09/06/17 16:00 69 09/06/17 16:00 Nasal Cannula 1.00 09/06/17 16:00 97.9 69 20 108/70 (83) 96 09/06/17 15:00 69 09/06/17 14:00 69 09/06/17 13:00 69 09/06/17 13:00 97.9 70 18 107/71 (83) 97 09/06/17 12:45 97.9 70 18 113/71 (85) 98 09/06/17 12:30 97.9 70 20 111/73 (86) 96 09/06/17 12:30 Nasal Cannula 1.00 09/06/17 12:30 97.9 70 20 111/73 (86) 96 09/06/17 12:15 68 09/06/17 11:14 97.5 70 20 111/74 (86) 94 09/06/17 10:00 69 09/06/17 09:00 68 09/06/17 08:05 96 Nasal Cannula 2.00 09/06/17 08:00 68 I/O 09/06/17 09/06/17 09/06/17 09/07/17 09/07/17 09/07/17 07:00 15:00 23:00 07:00 15:00 23:00 Intake Total 960 ml 600 ml 240 ml Output Total 650 ml 520 ml 500 ml Balance 310 ml 80 ml -260 ml Intake Oral 960 ml 600 ml 240 ml Output Urine Total 650 ml 520 ml 500 ml Stool Total 0 ml # Voids 2 Physical Exam GENERAL: Well-developed well-nourished. In no acute distress. NECK: No carotid bruits. No JVD. CARDIOVASCULAR: Regular rate and rhythm. Blowing systolic murmur appreciated. RESPIRATORY: No accessory muscle use. Clear to auscultation. MUSCULOSKELETAL: No clubbing or cyanosis. Trace edema. NEUROLOGICAL: Awake and alert. Normal speech. Laboratory Laboratory Tests Test 09/06/17 09:43 09/06/17 11:15 09/07/17 03:34 White Blood Count 4.6 TH/MM3 4.7 TH/MM3 Red Blood Count 4.62 MIL/MM3 4.46 MIL/MM3 Hemoglobin 13.7 GM/DL 13.0 GM/DL Hematocrit 42.0 % 40.2 % Mean Corpuscular Volume 90.9 FL 90.1 FL Mean Corpuscular Hemoglobin 29.5 PG 29.2 PG Mean Corpuscular Hemoglobin Concent 32.5 % 32.4 % Red Cell Distribution Width 16.8 % 16.8 % Platelet Count 196 TH/MM3 171 TH/MM3 Mean Platelet Volume 8.5 FL 8.5 FL Prothrombin Time 12.2 SEC Prothromb Time International Ratio 1.2 RATIO Activated Partial Thromboplast Time 30.4 SEC Pleural Fluid pH 8.0 Pleural Fluid WBC 182 /MM3 Pleural Fluid RBC 57 /MM3 Pleural Fluid Neutrophils 5 % Pleural Fluid Lymphocytes 67 % Pleural Fluid Monocytes 17 % Pleural Fluid Histiocytes 9 % Pleural Fluid Mesothelial Cells 2 % Pleural Fluid Comment Pleural Fluid Total Protein 2.2 GM/DL Pleural Fluid LDH 60 U/L Pleural Fluid Glucose 99 MG/DL Neutrophils (%) (Auto) 60.1 % Lymphocytes (%) (Auto) 29.0 % Monocytes (%) (Auto) 6.7 % Eosinophils (%) (Auto) 2.1 % Basophils (%) (Auto) 2.1 % Neutrophils # (Auto) 2.8 TH/MM3 Lymphocytes # (Auto) 1.4 TH/MM3 Monocytes # (Auto) 0.3 TH/MM3 Eosinophils # (Auto) 0.1 TH/MM3 Basophils # (Auto) 0.1 TH/MM3 CBC Comment DIFF FINAL Differential Comment Blood Urea Nitrogen 23 MG/DL Creatinine 1.35 MG/DL Random Glucose 75 MG/DL Calcium Level 8.9 MG/DL Sodium Level 143 MEQ/L Potassium Level 3.8 MEQ/L Chloride Level 105 MEQ/L Carbon Dioxide Level 30.5 MEQ/L Anion Gap 8 MEQ/L Estimat Glomerular Filtration Rate 50 ML/MIN B-Type Natriuretic Peptide 2955 PG/ML Imaging Last Impressions Thoracentesis Ultrasound 09/06/17 0000 Signed Impressions: Service Date/Time: Wednesday, September 06, 2017 11:02 - CONCLUSION: Uncomplicated ultrasound guided thoracentesis. Fluid was sent for ordered studies. Vladimir Olivas MD FACR Chest X-Ray 09/06/17 0000 Signed Impressions: Service Date/Time: Wednesday, September 06, 2017 11:26 - CONCLUSION: Bibasilar densities greater right lower lobe. No pneumothorax. Charan Ames MD Chest Ultrasound 09/06/17 0000 Signed Impressions: Service Date/Time: Wednesday, September 06, 2017 11:06 - CONCLUSION: No significant fluid. Vladimir Olivas MD FACR Abdomen/Pelvis CT 09/05/17 0000 Signed Impressions: Service Date/Time: Wednesday, September 06, 2017 00:21 - CONCLUSION: 1. Bilateral pleural effusion, right greater than left. Also mild ascites and anasarca. Pacer leads in right atrium and right ventricle with cardiomegaly. 2. Mild 3.2 cm abdominal aortic aneurysm. Bilateral renal cysts and left lobe hepatic cyst. 3. Dense coronary calcifications. Aditya Aponte MD Abdomen X-Ray 09/03/17 0000 Signed Impressions: Service Date/Time: Sunday, September 03, 2017 19:26 - CONCLUSION: Benign-appearing abdomen. Harpreet Gasca MD Assessment and Plan Assessment and Plan 82-year-old male with a past medical history of systolic CHF EF 10%, AICD/pacer , ventricular fibrillation, CAD s/p CABG HTN, HLD, hypothyroidism, chronic pain , anxiety/depression. The patient recently relocated to the area to live with his daughter from [place] and has not established with any physicians here yet, was following with [facility]. For the past month or so he's been having progressively worsening shortness of breath, abdominal distention, and lower extremity swelling. He's been taking Lasix 3 times a day at home with no improvement. Received IV Lasix and metolazone yesterday, reports good urine output overnight. Shortness of breath may be mildly improved overnight. Patient denies any chest pain or palpitations. Acute exacerbation of chronic systolic CHF: Continue IV diuresis, monitor I's and O's. Had thoracentesis 09/06 with 850 miles fluid removed. Clinically improving. Ischemic cardiomyopathy EF 10%: Apparently not a candidate for BiV device, may need EP evaluation here to confirm no BiV. Echo with EF less than 20%. Continue low-dose carvedilol. No ACEi or ARB with history of angioedema. CAD: Stable. Continue aspirin and statin. Single-lead AICD/ventricular pacer in place: Device interrogated by rep 09/04 with no events noted. Stable. Continue amiodarone. Aortic valve disease: Moderate stenosis and mild regurgitation seen on echo. ED versus CKD: Improved. Monitor renal function with diuresis. Rodolfo Ca Sep 07, 2017 07:33
--- NOTE | 2017-09-07 07:59 | HHI.PR ---
Subjective Remarks Feels much betetr today. Less LE edema; Still some abd pain. No much sob says feels better after thoracentesis yesterday. No fever or chills. UOP picking up Cleared by cardiology for DC. Patient is looking forward to go to rehab Objective Vitals Vital Signs Date Time Temp Pulse Resp B/P (MAP) Pulse Ox O2 Delivery O2 Flow Rate FiO2 09/07/17 07:37 97 Nasal Cannula 2.00 09/07/17 06:00 70 09/07/17 05:00 69 09/07/17 04:00 68 09/07/17 03:00 98.9 70 21 98/62 (74) 97 09/07/17 03:00 97 Nasal Cannula 1.00 09/07/17 03:00 70 09/06/17 23:10 22 09/06/17 23:00 98.5 70 22 115/79 (91) 96 09/06/17 23:00 69 09/06/17 23:00 96 Nasal Cannula 1.00 09/06/17 22:00 70 09/06/17 21:00 67 09/06/17 19:00 70 09/06/17 19:00 98.2 70 18 91/52 (65) 96 09/06/17 19:00 96 Nasal Cannula 1.00 09/06/17 18:00 69 09/06/17 17:00 69 09/06/17 16:00 69 09/06/17 16:00 Nasal Cannula 1.00 09/06/17 16:00 97.9 69 20 108/70 (83) 96 09/06/17 15:00 69 09/06/17 14:00 69 09/06/17 13:00 69 09/06/17 13:00 97.9 70 18 107/71 (83) 97 09/06/17 12:45 97.9 70 18 113/71 (85) 98 09/06/17 12:30 97.9 70 20 111/73 (86) 96 09/06/17 12:30 Nasal Cannula 1.00 09/06/17 12:30 97.9 70 20 111/73 (86) 96 09/06/17 12:15 68 09/06/17 11:14 97.5 70 20 111/74 (86) 94 09/06/17 10:00 69 09/06/17 09:00 68 09/06/17 08:05 96 Nasal Cannula 2.00 09/06/17 08:00 68 I/O 09/06/17 09/06/17 09/06/17 09/07/17 09/07/17 09/07/17 07:00 15:00 23:00 07:00 15:00 23:00 Intake Total 960 ml 600 ml 240 ml Output Total 650 ml 520 ml 500 ml Balance 310 ml 80 ml -260 ml Intake Oral 960 ml 600 ml 240 ml Output Urine Total 650 ml 520 ml 500 ml Stool Total 0 ml # Voids 2 Result Diagram: 09/07/17 0334 09/07/17 0334 Imaging Last Impressions Thoracentesis Ultrasound 09/06/17 0000 Signed Impressions: Service Date/Time: Wednesday, September 06, 2017 11:02 - CONCLUSION: Uncomplicated ultrasound guided thoracentesis. Fluid was sent for ordered studies. Vladimir Olivas MD FACR Chest X-Ray 09/06/17 0000 Signed Impressions: Service Date/Time: Wednesday, September 06, 2017 11:26 - CONCLUSION: Bibasilar densities greater right lower lobe. No pneumothorax. Charan Ames MD Chest Ultrasound 09/06/17 0000 Signed Impressions: Service Date/Time: Wednesday, September 06, 2017 11:06 - CONCLUSION: No significant fluid. Vladimir Olivas MD FACR Abdomen/Pelvis CT 09/05/17 0000 Signed Impressions: Service Date/Time: Wednesday, September 06, 2017 00:21 - CONCLUSION: 1. Bilateral pleural effusion, right greater than left. Also mild ascites and anasarca. Pacer leads in right atrium and right ventricle with cardiomegaly. 2. Mild 3.2 cm abdominal aortic aneurysm. Bilateral renal cysts and left lobe hepatic cyst. 3. Dense coronary calcifications. Aditya Aponte MD Abdomen X-Ray 09/03/17 0000 Signed Impressions: Service Date/Time: Sunday, September 03, 2017 19:26 - CONCLUSION: Benign-appearing abdomen. Harpreet Gasca MD Objective Remarks GENERAL: This is a pleasant alert elderly male, well-nourished, well-developed patient, in no apparent distress. CARDIOVASCULAR: Regular rate and rhythm. RESPIRATORY: Breath sounds decreased bilaterally. Bibasilar crackles. No wheezes. GASTROINTESTINAL: Abdomen soft, non-tender, nondistended. No hepato-splenomegaly , or palpable masses. No guarding. MUSCULOSKELETAL: Extremities without clubbing, cyanosis. 3+ LE edema. No joint tenderness, effusion, or edema noted. No calf tenderness. Negative Homans sign bilaterally. NEUROLOGICAL: Awake and alert. Cranial nerves II through XII intact. Motor and sensory grossly within normal limits. Five out of 5 muscle strength in all muscle groups. Normal speech. A/P Assessment and Plan 82-year-old male with Systolic congestive heart failure now with exacerbation, per family EF low at 10 %, has AICD. Coronary artery disease with CABG and stents in the past. Chronic medical problems hypothyroidism, hypertension, hyperlipidemia, neuropathy. Monitor. Restart home medications as appropriate. ED creatinine 1.53 on admission. Per family (daughter is a nurse , kidney is at baseline Cr baseline is around 2). Monitor kidney function avoid nephrotoxins if possible. Chest x-ray reviewed with right lower lobe pleural effusion, cardiomegaly Elevated BNP at 2674. Monitor Start Lasix 40 mg IV twice a day. Give one dose metolazone 2.5 mg .Monitor kidney function Replace potassium as noted low. Start potassium supplement as patient also on Lasix. Monitor electrolytes and replace as needed. Monitor on telemetry 2-D echo with EF less than 20% Consult cardiology family /patient requesting Dr Wright cardiology, ff . Discussed with Dr Wright OK to DC from cardiac standpoint Antiemetics laxatives as need NOTE: patient with ACEI severe allergy angioedema Discussed with Dr Wright cardiology, patient might benefit to have thoracentesis as with bilateral pleural effusions worse on the right. Will do thoracentesis both diagnostic and therapeutic DVT prophylaxis SCD/teds/Lovenox Discussed Condition With Patient, nurse DC plan: Cleared by cardiology for DC. Also no plan for any GI interventions as patient with high cardiac risk. Plan to DC to rehab today. Expect decompensation and readmission to the hospital as patient with very low EF , AICD, can't be on entresto as with severe reaction angioedema to ACEI. Expect frequent hospitalization for decompensation. Tammy Lockhart MD Sep 07, 2017 07:59
[2017-09-07] MEDS: POTASSIUM CHLORIDE 20 MEQ CONTROLLED RELEASE TAB PO SCH (08:33)
[2017-09-07] MEDS: cloNIDine HCL 0.1 MG TAB PO SCH (08:33)
[2017-09-07] MEDS: CARVEDILOL 6.25 MG TAB PO SCH (08:33)
[2017-09-07] MEDS: ASPIRIN 325 MG TAB PO SCH (08:33)
[2017-09-07] MEDS: HEPARIN SODIUM - SQ 10,000 UNITS/ML VIAL SQ SCH (08:33)
[2017-09-07] MEDS: SERTRALINE HCL 50 MG TAB PO SCH (08:33)
[2017-09-07] MEDS: DOCUSATE SODIUM 50 MG/SENNA 8.6 MG TAB PO SCH (08:33)
[2017-09-07] MEDS: SODIUM CHLORIDE 0.9% FLUSH 10 ML FLUSH IV FLUSH SCH (08:34)
[2017-09-07] MEDS: FUROSEMIDE 40 MG/4 ML VIAL IV PUSH SCH (08:34)
[2017-09-07] MEDS ORDERED: METOLAZONE 2.5 MG TAB PO SCH (09:00)
[2017-09-07 12:08] LABS: AMYLASE BODY FLUID 9 U/L; AMYLASE BODY FLUID TYPE PLEURAL
== END 2017-09-07 17:30 | DRG 292 ==
LOC: NEPC 14:49 → NEDA 16:39 → HCPC 17:25
PROVIDERS: ADMIT Hospitalist; ATTEND Hospitalist
PROC: 0W993ZZ Drainage of Right Pleural Cavity, Percutaneous Approach (ICD-10-PCS; principal; 2017-09-06)
PROC: 0W993ZX Drainage of Right Pleural Cavity, Percutaneous Approach, Diagnostic (ICD-10-PCS; 2017-09-06)
DX: I11.0 Hypertensive heart disease with heart failure (principal); J91.8 Pleural effusion in other conditions classified elsewhere; N17.9 Acute kidney failure, unspecified; G62.9 Polyneuropathy, unspecified; I25.5 Ischemic cardiomyopathy; I25.10 Atherosclerotic heart disease of native coronary artery without angina pectoris; H91.90 Unspecified hearing loss, unspecified ear; I50.23 Acute on chronic systolic (congestive) heart failure; E03.9 Hypothyroidism, unspecified; E78.5 Hyperlipidemia, unspecified; G89.29 Other chronic pain; I35.2 Nonrheumatic aortic (valve) stenosis with insufficiency; R10.31 Right lower quadrant pain; M19.90 Unspecified osteoarthritis, unspecified site; F32.9 Major depressive disorder, single episode, unspecified; F41.9 Anxiety disorder, unspecified; Z91.81 History of falling; Z79.82 Long term (current) use of aspirin; Z95.810 Presence of automatic (implantable) cardiac defibrillator; Z95.1 Presence of aortocoronary bypass graft; Z95.5 Presence of coronary angioplasty implant and graft; I25.2 Old myocardial infarction
CPT/HCPCS: 32555; 71045; 74018; 74176; 76604; 80048; 80053; 82150; 82550; 82552; 82945; 83615; 83735; 83880; 83986; 84157; 84484; 85025; 85027; 85610; 85730; 87015; 87070; 87102; 87116; 87205; 87206; 88112; 89051; 93005; 93306; 94150; 96374; C1729; J0171; J0461; J1644; J1650; J1940; J2405; Q0163; Q9963

== ENCOUNTER 2017-09-18 23:09 | Observation (INO) | payer MEDICARE ==
[~2017-09-18 23:09] MED LIST changes: -CLON.1 PO; +FURO40TA PO; +TRAM50TA PO; +ZOLO50TA PO
[2017-09-18 23:11] VITALS: BP 101/69; PULSE 92; RESP 16; O2SAT 95
[2017-09-18 23:24] VITALS: O2SAT 96
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
[2017-09-18 23:43] LABS: BASOPHIL # 0.1 TH/MM3 (0-0.2); BASOPHIL % 0.7 % (0.0-2.0); EOSINOPHIL % 0.6 % (0.0-4.0); HEMATOCRIT 41.5 % (39.0-51.0); HEMOGLOBIN 13.5 GM/DL (13.0-17.0); LYMPH % 20.5 % (9.0-44.0); LYMPHOCYTE # 1.4 TH/MM3 (1.0-4.8); MEAN CELL VOLUME 89.8 FL (80.0-100.0); MEAN CORPUSCULAR HEMOGLOBIN 29.2 PG (27.0-34.0); MEAN CORPUSCULAR HGB CONC 32.5 % (32.0-36.0); MEAN PLATELET VOLUME 7.9 FL (7.0-11.0); MONO % 5.8 % (0.0-8.0); MONOCYTE # 0.4 TH/MM3 (0-0.9); NEUT % 72.4 % (16.0-70.0); PLATELET COUNT 179 TH/MM3 (150-450); RED BLOOD COUNT 4.62 MIL/MM3 (4.50-5.90); RED CELL DISTRIBUTION WIDTH 17.1 % (11.6-17.2); WHITE BLOOD COUNT 6.9 TH/MM3 (4.0-11.0)
[2017-09-18 23:53] LABS: INTERNATIONAL NORMALIZED RATIO 1.2 RATIO; PROTHROMBIN TIME - PATIENT 11.7 SEC (9.8-11.6)
--- NOTE | 2017-09-18 23:56 | RADRPT ---
EXAM DATE/TIME: 09/18/2017 23:46 [facility] COMPARISON: CHEST SINGLE AP, September 06, 2017, 9:54. INDICATIONS : Short of breath. MEDICAL HISTORY : Congestive heart failure. Hypertension SURGICAL HISTORY : CABG. Pacemaker. ENCOUNTER: Initial ACUITY: 1 day PAIN SCORE: 0/10 LOCATION: Bilateral chest FINDINGS: There are moderate bilateral effusions, cardiomegaly and consolidation in the lower lobes. Sternotomy wires and pacer device again seen. CONCLUSION: Bilateral effusions and consolidation. Mike Crouch MD on September 18, 2017 at 23:54 Board Certified Radiologist. This report was verified electronically.
[2017-09-19] VITALS (27 sets, daily range): BP systolic 69–145; BP diastolic 50–90; PULSE 95–109; RESP 16–20; TEMP 97.8–98.6; O2SAT 93–99
[2017-09-19 00:02] LABS: ALBUMIN 3.1 GM/DL (3.4-5.0); AST (GOT) 49 U/L (15-37); BICARBONATE 28.5 MEQ/L (21.0-32.0); BLOOD UREA NITROGEN 33 MG/DL (7-18); CALCIUM 9.1 MG/DL (8.5-10.1); CHLORIDE 103 MEQ/L (98-107); CREATININE 1.34 MG/DL (0.60-1.30); GLOMERULAR FILTRATION RATE 51 ML/MIN (>89); GLUCOSE,RANDOM 78 MG/DL (74-106); MAGNESIUM 2.3 MG/DL (1.5-2.5); SODIUM (NA) 139 MEQ/L (136-145)
[2017-09-19 00:03] LABS: ALT (GPT) 23 U/L (12-78)
[2017-09-19 00:12] LABS: ALKALINE PHOSPHATASE 181 U/L (45-117); TOTAL BILIRUBIN ADULT 0.8 MG/DL (0.2-1.0); TOTAL PROTEIN 6.5 GM/DL (6.4-8.2); TROPONIN I 0.12 NG/ML (0.02-0.05)
--- NOTE | 2017-09-19 00:17 | RADRPT ---
EXAM DATE/TIME: 09/19/2017 00:00 [facility] COMPARISON: CT ABDOMEN & PELVIS W/O CONTRAST, September 06, 2017, 0:21. INDICATIONS : Abdomen pain. ORAL CONTRAST: No oral contrast ingested. RADIATION DOSE: 15.99 CTDIvol (mGy) MEDICAL HISTORY : Cardiovascular disease. Hypertension. SURGICAL HISTORY : Pacemaker. Paracentisis. ENCOUNTER: Initial ACUITY: 1 day PAIN SCALE: 5/10 LOCATION: Bilateral abdomen TECHNIQUE: Volumetric scanning of the abdomen and pelvis was performed. Using automated exposure control and ad justment of the mA and/or kV according to patient size, radiation dose was kept as low as reasonably achievable to obtain optimal diagnostic quality images. DICOM format image data is available electro nically for review and comparison. FINDINGS: There is coronary artery calcification, cardiomegaly, and large bilateral pleural effusions right gre ater than left again noted. There is consolidation and atelectasis of the lower lobes. Diffuse athero sclerotic calcification of the aorta and iliac vasculature noted. Infrarenal abdominal aortic aneurys m is identified measuring up to 3.2 x 3 cm in transverse and AP dimension on image 35. There is body wall edema. Urinary bladder unremarkable. Evidence of previous TURP procedure. Small amount of free f luid in the pelvis. There is diverticulosis of the sigmoid and descending colon identified without ev idence for diverticulitis or obstruction. The appendix is normal. There is no lymphadenopathy. There is a stable cyst in the left lobe of the liver, and bilateral renal cysts are again seen. The pancrea s, spleen, adrenals are unremarkable. Small fat containing umbilical hernia. Review of bone windows demonstrate degenerative changes of the spine. CONCLUSION: 1. Abdominal aortic aneurysm. 2. Atherosclerosis. 3. Liver and renal cysts. 4. Small amount free fluid in the pelvis and body wall edema, with large bilateral effusions and cons olidation. 5. Small fat containing umbilical hernia. Mike Crouch MD on September 19, 2017 at 0:13 Board Certified Radiologist. This report was verified electronically.
[2017-09-19] MEDS ORDERED: NITROGLYCERIN 2% OINT 1 GM PACKET TOPICAL ONE (01:00)
[2017-09-19] MEDS ORDERED: FUROSEMIDE 40 MG/4 ML VIAL IV PUSH ONE ×2 (01:15)
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
[2017-09-19] MEDS ORDERED: SPIR25TA PO (01:43)
[2017-09-19] MEDS ORDERED: MULT1TAB46 (01:43)
[2017-09-19] MEDS ORDERED: PRAV80TA PO (01:43)
[2017-09-19] MEDS ORDERED: GABA300C5 PO (01:55)
[2017-09-19] MEDS ORDERED: CLON0.1T PO (01:55)
[2017-09-19] MEDS ORDERED: LEVO125T4 PO (01:55)
[2017-09-19] MEDS ORDERED: AMLO5 PO (01:55)
[2017-09-19] MEDS ORDERED: ASPI-183 PO (01:55)
[2017-09-19] MEDS ORDERED: AMIO200T PO (01:55)
[2017-09-19] MEDS ORDERED: DIAZ5TAB PO (01:55)
[2017-09-19] MEDS ORDERED: PRED5TAB PO (01:55)
[2017-09-19] MEDS ORDERED: CARV6.25 PO (01:55)
[2017-09-19] MEDS ORDERED: META1TAB17 PO (01:55)
[2017-09-19] MEDS ORDERED: GABA600T PO ×2 (01:55)
[2017-09-19] MEDS ORDERED: POTA-163 PO (01:55)
[2017-09-19] MEDS ORDERED: ASPIRIN 325 MG TAB PO SCH (02:00)
[2017-09-19] MEDS ORDERED: SODIUM CHLORIDE 0.9% FLUSH 10 ML FLUSH IV FLUSH PRN (02:00)
[2017-09-19] MEDS ORDERED: DIAZEPAM 5 MG TAB PO PRN (02:00)
[2017-09-19] MEDS ORDERED: GABAPENTIN 300 MG CAP PO ONE (02:15)
[2017-09-19] MEDS ORDERED: diphenhydrAMINE HCL 50 MG/ML VIAL IV PUSH ONE (02:15)
[2017-09-19] MEDS ORDERED: ASPIRIN 325 MG TAB PO ONE (02:15)
[2017-09-19] MEDS ORDERED: PILL SPLITTER OTHER PRN (02:45)
[2017-09-19] MEDS: traMADol HCL 50 MG TAB PO PRN ×2 (04:18→22:37)
[2017-09-19] MEDS: LEVOTHYROXINE SODIUM 125 MCG TAB PO SCH (05:36)
[2017-09-19 05:39] LABS: ALBUMIN 3.1 GM/DL (3.4-5.0); ALT (GPT) 23 U/L (12-78); AST (GOT) 45 U/L (15-37); BICARBONATE 27.4 MEQ/L (21.0-32.0); BLOOD UREA NITROGEN 33 MG/DL (7-18); CALCIUM 8.9 MG/DL (8.5-10.1); CHLORIDE 104 MEQ/L (98-107); CREATININE 1.35 MG/DL (0.60-1.30); GLOMERULAR FILTRATION RATE 50 ML/MIN (>89); GLUCOSE,RANDOM 72 MG/DL (74-106); SODIUM (NA) 140 MEQ/L (136-145)
[2017-09-19 05:42] LABS: ALKALINE PHOSPHATASE 164 U/L (45-117); TOTAL BILIRUBIN ADULT 0.9 MG/DL (0.2-1.0); TOTAL PROTEIN 6.5 GM/DL (6.4-8.2)
[2017-09-19] MEDS ORDERED: cloNIDine HCL 0.1 MG TAB PO SCH (09:00)
[2017-09-19] MEDS: METAXALONE 800 MG TAB PO SCH (09:00)
[2017-09-19] MEDS ORDERED: FUROSEMIDE 40 MG TAB PO SCH (09:00)
[2017-09-19] MEDS: predniSONE 5 MG TAB PO SCH (09:00)
[2017-09-19] MEDS ORDERED: GABAPENTIN 300 MG CAP PO SCH ×4 (09:00→21:00)
[2017-09-19] MEDS: ENOXAPARIN SODIUM 30 MG/0.3 ML SYRINGE SQ SCH (09:07)
[2017-09-19] MEDS: ASPIRIN 81 MG CHEW TAB CHEW SCH (09:08)
[2017-09-19] MEDS: AMIODARONE 200 MG TAB PO SCH (09:08)
[2017-09-19] MEDS: SPIRONOLACTONE 25 MG TAB PO SCH (09:08)
[2017-09-19] MEDS: CARVEDILOL 6.25 MG TAB PO SCH (09:08)
[2017-09-19] MEDS: PRAVASTATIN SOD 80 MG TAB PO SCH (09:08)
[2017-09-19] MEDS: amLODIPine BESYLATE 5 MG TAB PO SCH (09:08)
[2017-09-19] MEDS: POTASSIUM CHLORIDE 20 MEQ CONTROLLED RELEASE TAB PO SCH (09:08)
[2017-09-19] MEDS: SODIUM CHLORIDE 0.9% FLUSH 10 ML FLUSH IV FLUSH SCH ×2 (09:09→20:45)
[2017-09-19] MEDS: SERTRALINE HCL 50 MG TAB PO SCH (09:09)
[2017-09-19] MEDS ORDERED: FUROSEMIDE 20 MG/2 ML VIAL IV PUSH ONE (11:15)
[2017-09-19] MEDS ORDERED: ALPRAZolam 0.5 MG TAB PO PRN (15:00)
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
[2017-09-19] MEDS: FUROSEMIDE 40 MG TAB PO SCH (16:27)
[2017-09-19] MEDS: GABAPENTIN 300 MG CAP PO SCH (20:41)
[2017-09-20] VITALS (27 sets, daily range): BP systolic 94–115; BP diastolic 61–83; PULSE 94–109; RESP 16–20; TEMP 97.3–98.1; O2SAT 92–98
[2017-09-20] MEDS: LEVOTHYROXINE SODIUM 125 MCG TAB PO SCH (05:59)
[2017-09-20 07:27] LABS: AUTOMATED NEUTROPHIL # 4.4 TH/MM3 (1.8-7.7); BASOPHIL # 0.1 TH/MM3 (0-0.2); EOSINOPHIL # 0.1 TH/MM3 (0-0.4); EOSINOPHIL % 1.9 % (0.0-4.0); HEMATOCRIT 42.4 % (39.0-51.0); HEMOGLOBIN 13.9 GM/DL (13.0-17.0); LYMPH % 24.7 % (9.0-44.0); LYMPHOCYTE # 1.7 TH/MM3 (1.0-4.8); MEAN CELL VOLUME 90.4 FL (80.0-100.0); MEAN CORPUSCULAR HEMOGLOBIN 29.6 PG (27.0-34.0); MEAN CORPUSCULAR HGB CONC 32.7 % (32.0-36.0); MEAN PLATELET VOLUME 7.9 FL (7.0-11.0); MONO % 7.3 % (0.0-8.0); MONOCYTE # 0.5 TH/MM3 (0-0.9); NEUT % 65.1 % (16.0-70.0); PLATELET COUNT 193 TH/MM3 (150-450); RED BLOOD COUNT 4.69 MIL/MM3 (4.50-5.90); RED CELL DISTRIBUTION WIDTH 17.8 % (11.6-17.2); WHITE BLOOD COUNT 6.7 TH/MM3 (4.0-11.0)
[2017-09-20 07:41] LABS: ALBUMIN 3.4 GM/DL (3.4-5.0); ALT (GPT) 25 U/L (12-78); AST (GOT) 45 U/L (15-37); BICARBONATE 31.2 MEQ/L (21.0-32.0); BLOOD UREA NITROGEN 37 MG/DL (7-18); CALCIUM 9.1 MG/DL (8.5-10.1); CHLORIDE 101 MEQ/L (98-107); CREATININE 1.56 MG/DL (0.60-1.30); GLOMERULAR FILTRATION RATE 43 ML/MIN (>89); GLUCOSE,RANDOM 82 MG/DL (74-106); SODIUM (NA) 139 MEQ/L (136-145)
[2017-09-20 07:43] LABS: ALKALINE PHOSPHATASE 175 U/L (45-117); TOTAL PROTEIN 7.1 GM/DL (6.4-8.2)
[2017-09-20] MEDS: ONDANSETRON HCL 4 MG/2 ML VIAL IV PUSH PRN ×2 (08:28→17:38)
[2017-09-20] MEDS: ENOXAPARIN SODIUM 30 MG/0.3 ML SYRINGE SQ SCH (08:29)
[2017-09-20] MEDS: amLODIPine BESYLATE 5 MG TAB PO SCH (08:30)
[2017-09-20] MEDS: PRAVASTATIN SOD 80 MG TAB PO SCH (08:30)
[2017-09-20] MEDS: SPIRONOLACTONE 25 MG TAB PO SCH (08:30)
[2017-09-20] MEDS: SERTRALINE HCL 50 MG TAB PO SCH (08:30)
[2017-09-20] MEDS: GABAPENTIN 300 MG CAP PO SCH ×2 (08:30→20:04)
[2017-09-20] MEDS: AMIODARONE 200 MG TAB PO SCH (08:30)
[2017-09-20] MEDS: ASPIRIN 81 MG CHEW TAB CHEW SCH (08:30)
[2017-09-20] MEDS: POTASSIUM CHLORIDE 20 MEQ CONTROLLED RELEASE TAB PO SCH (08:30)
[2017-09-20] MEDS: METAXALONE 800 MG TAB PO SCH (08:30)
[2017-09-20] MEDS: predniSONE 5 MG TAB PO SCH (08:30)
[2017-09-20] MEDS: CARVEDILOL 6.25 MG TAB PO SCH (08:30)
--- NOTE | 2017-09-20 08:30 | EKG ---
Date Performed: 09/18/2017 Time Performed: 23:14:45 PTAGE: 82 years EKG: ELECTRONIC VENTRICULAR PACEMAKER Compared to previous tracing paced rate is higher ABNORMAL RHYTHM ECG PREVIOUS TRACING : 09/03/2017 15.41 DOCTOR: Kaz Peralta Interpretating Date/Time 09/20/2017 08:30:24
[2017-09-20] MEDS: SODIUM CHLORIDE 0.9% FLUSH 10 ML FLUSH IV FLUSH SCH ×2 (08:31→20:05)
[2017-09-20] MEDS: FUROSEMIDE 40 MG TAB PO SCH ×2 (08:32→17:43)
--- NOTE | 2017-09-20 09:44 | HHI.FPPN ---
Subjective Remarks Patient seen and examined bedside this morning. Patient appears to be very groggy and tired this morning. He states people wake him up multiple times through the night. Patient states he woke up nauseous this morning, and he cannot tell if the Zofran has alleviated his nausea. He has not vomited. He does not know if he has had diarrhea. He continues complain of vague abdominal pain. He states a lot of fluid has been released over the last 24 hours and he weighs less today. No acute events overnight. No fever/chills. (Megha Mcgregor MD R2) Objective Vitals Vital Signs Date Time Temp Pulse Resp B/P (MAP) Pulse Ox O2 Delivery O2 Flow Rate FiO2 09/20/17 06:03 100 09/20/17 05:03 101 09/20/17 04:14 103 09/20/17 03:08 108 09/20/17 03:02 97.9 107 17 115/61 (79) 97 09/20/17 02:20 108 09/20/17 01:19 106 09/20/17 00:18 104 09/19/17 23:25 98.0 109 17 142/90 (107) 99 09/19/17 23:23 106 09/19/17 22:30 103 09/19/17 21:10 101 09/19/17 20:15 106 09/19/17 20:07 93 Nasal Cannula 2.00 09/19/17 19:52 97.8 103 16 143/68 (93) 98 09/19/17 19:19 101 09/19/17 18:10 101 09/19/17 17:03 101 09/19/17 16:08 103 09/19/17 15:00 98.2 95 19 145/77 (99) 93 09/19/17 15:00 98 09/19/17 14:24 101 09/19/17 13:21 101 09/19/17 12:00 101 09/19/17 11:29 98.6 96 16 69/50 (56) 93 09/19/17 11:29 102 09/19/17 10:27 105 I/O 09/19/17 09/19/17 09/19/17 09/20/17 09/20/17 09/20/17 07:00 15:00 23:00 07:00 15:00 23:00 Intake Total 650 ml 360 ml Output Total 525 ml 675 ml 650 ml Balance -525 ml -25 ml -290 ml Intake Oral 650 ml 360 ml Output Urine Total 525 ml 675 ml 650 ml # Voids 3 3 # Bowel Movements 2 (Megha Mcgregor MD R2) Result Diagram: 09/20/1714 09/20/17713 Objective Remarks GENERAL: Older gentleman sitting in chair, very groggy, less alert than prior exams SKIN: Warm and dry. HEAD: Normocephalic. EYES: No scleral icterus. No injection or drainage. NECK: Supple, trachea midline. No JVD or lymphadenopathy. CARDIOVASCULAR: Regular rate and rhythm without murmurs, gallops, or rubs. RESPIRATORY: Breath sounds equal bilaterally, crackles in middle and lower lobes bilaterally. No accessory muscle use. GASTROINTESTINAL: Abdomen soft, non-tender, nondistended. MUSCULOSKELETAL: No cyanosis, or edema. 2+ pitting edema up to mid chan bilaterally. No erythema or calf tenderness. BACK: Nontender without obvious deformity. No CVA tenderness. (Megha Mcgregor MD R2) A/P Assessment and Plan Patient is an 82-year-old male with a past medical history significant for systolic CHF with EF <10% with AICD, hypothyroidism, hypertension, and hyperlipidemia who presents for lower extremity edema and is admitted for CHF exacerbation. Discharge Planning Pending decision for long-term care between physicians, palliative care, and healthcare surrogate which is patient's daughter. (Megha Mcgregor MD R2) Attending Attestation Patient seen and examined at 0800 on rounds; discussed with resident team. I agree with assessment and management as documented and discussed with me. Nursing reports no new changes with Mr. Barnett. Patient complains of nausea this AM - zofran ordered. Continue diuretics - monitor kidney function; creatinine increased slightly from yesterday. (Taniya Sanabria MD) Problem List: (1) CHF (NYHA class IV, ACC/AHA stage D) ICD Codes: I50.9 - Heart failure, unspecified Status: Chronic Plan: Acute on chronic CHF 09/04/17 echocardiogram significant for moderately dilated left ventricle, left ventricular systolic function severely reduced with EF less than 20%, diffuse global hypokinesis with distinct regional wall motion abnormalities Patient breathing comfortably on exam without complaints of shortness of breath. O2 saturation 97% on 2L NC. s/p Lasix 40 mg IV 2 in ED on 09/19 s/p Lasix 20mg IV x 1 on 09/19 Continue home Lasix 40 PO BID Plan: -Monitor renal function with a.m. BMP - Continue home medications including amiodarone, amlodipine, carvedilol, clonidine, Lasix, and spironolactone - Continue to monitor for signs of fluid overload and adjust Lasix dosing as needed -Encourage patient to sit up in bed with legs below chest or in chair with legs hanging down. -Low-salt diet less than 2 g per day. Fluid restrict to 1.5 L per day. -Strict Is and Os. Daily weights. Supplemental oxygen and monitor on pulse ox. -Consider cardiology consult in the a.m. if patient has not improved. (2) ED (acute kidney injury) ICD Codes: N17.9 - Acute kidney failure, unspecified Status: Chronic Plan: Creatinine 1.34 on admission, Creat 1.56 today Continue to monitor with BMP (3) HTN (hypertension) ICD Codes: I10 - Essential (primary) hypertension Status: Chronic Plan: Stable, continue home medications (4) HLD (hyperlipidemia) ICD Codes: E78.5 - Hyperlipidemia, unspecified Status: Chronic Plan: Continue pravastatin 80 mg by mouth daily (5) Hypothyroidism ICD Codes: E03.9 - Hypothyroidism, unspecified Status: Chronic Plan: TSH 6.64, normal T4 on admission Continue Synthroid 125 g by mouth daily (6) Nutrition, metabolism, and development symptoms ICD Codes: R63.8 - Other symptoms and signs concerning food and fluid intake Status: Acute Plan: Fluids: None Electrolytes: wnl, continue to monitor and replete PRN Nutrition: Heart Healthy DVT ppx: Lovenox 30mg SQ Q24H (Megha Mcgregor MD R2) Problem Qualifiers (1) HTN (hypertension): Qualified Codes: I10 - Essential (primary) hypertension (2) HLD (hyperlipidemia): Qualified Codes: E78.5 - Hyperlipidemia, unspecified (3) Hypothyroidism: Qualified Codes: E03.9 - Hypothyroidism, unspecified Megha Mcgregor MD R2 Sep 20, 2017 09:44 Taniya Sanabria MD Sep 20, 2017 20:18
--- NOTE | 2017-09-20 15:22 | HHI.HCPN ---
Reason for visit a. To assist with evaluation and management of symptoms including:dyspnea, anxiety b. To assist medical decision maker(s) with: better understanding of current medical conditions; weighing benefits/burdens of medical treatment options; making medical treatment decisions. Subjective/Interval History Pt seen today to follow up on comfort, goals. Call to notify dtr /HCS daughter of planned follow, met with her, pt and pt at bedside. Lethargic, groggy they attributed to Xanax last night. He is for the most part oriented and appropriate, makes jokes. He falls asleep easily. He endorses his breathing feels okay denies dyspnea or pain. Feels swelling continues to be a little better. Explore goals--daughter Sharita indicates that patient understands he has life limiting heart disease and cardiac conditions however they are trying to maximize current medical treatment to keep him stable in order to get him back home to [place] in the coming weeks so that if and when he does decline he can be at home and when it is time for him to he will be able to at home. For now they wish to maximize available medical treatments to keep his cardiac condition/heart failure is stable as possible with plans to get him back to [place] in a couple weeks. Elects full code so that he may try to get back home. Advance Directives Living Will: Completed, but not made available Health Care Surrogate: Completed, but not made available Objective Vital Signs Date Time Temp Pulse Resp B/P (MAP) Pulse Ox O2 Delivery O2 Flow Rate FiO2 09/20/17 14:27 96 09/20/17 13:06 98 09/20/17 12:04 99 09/20/17 11:58 100 09/20/17 11:58 97.7 100 20 94/65 (75) 93 09/20/17 10:05 108 09/20/17 09:00 109 09/20/17 08:30 109 09/20/17 08:30 97.4 94 20 110/79 (89) 94 09/20/17 08:23 92 21 09/20/17 06:03 100 09/20/17 05:03 101 09/20/17 04:14 103 09/20/17 03:08 108 09/20/17 03:02 97.9 107 17 115/61 (79) 97 09/20/17 02:20 108 09/20/17 01:19 106 09/20/17 00:18 104 09/19/17 23:25 98.0 109 17 142/90 (107) 99 09/19/17 23:23 106 09/19/17 22:30 103 09/19/17 21:10 101 09/19/17 20:15 106 09/19/17 20:07 93 Nasal Cannula 2.00 09/19/17 19:52 97.8 103 16 143/68 (93) 98 09/19/17 19:19 101 09/19/17 18:10 101 09/19/17 17:03 101 09/19/17 16:08 103 Intake & Output 09/20/17 09/20/17 07:00 19:00 Intake Total 360 ml Output Total 650 ml Balance -290 ml Intake Oral 360 ml Output Urine Total 650 ml Physical Exam CONSTITUTIONAL/GENERAL: This is an adequately nourished patient, lethargic in recliner at bedside TUBES/LINES/DRAINS: Peripheral IV bilateral upper extremities, CARDIOVASCULAR: Regular rate and rhythm . No JVD. Peripheral pulses symmetric. 1 -2+ edema to lower legs RESPIRATORY/CHEST: Symmetric, unlabored respirations. Clear to auscultation. Decreased air movement. GASTROINTESTINAL: Abdomen soft, non tender, nondistended. No hepato-splenomegaly , or palpable masses. No guarding. Bowel sounds present. GENITOURINARY: Without palpable bladder distension. MUSCULOSKELETAL: Extremities without clubbing, cyanosis. Edema to lower legs. No joint tenderness or effusion noted. No calf tenderness. No mottling or clubbing. LYMPHATICS: No palpable cervical or supraclavicular adenopathy. NEUROLOGICAL: lethargic, alert at times, oriented 2-3 and appropriate. Appears to have reasonable insight to conditions. Motor and sensory grossly within normal limits. Follows commands. Cognitively sharp. Moves all 4 extremities. PSYCHIATRIC: No obvious anxiety/depression. no apparent hallucinations or other psychotic thought process. Diagnostic Tests Laboratory Laboratory Tests Test 09/18/17 23:20 09/19/17 04:55 09/20/17 07:14 White Blood Count 6.9 TH/MM3 (4.0-11.0) 6.7 TH/MM3 (4.0-11.0) Red Blood Count 4.62 MIL/MM3 (4.50-5.90) 4.69 MIL/MM3 (4.50-5.90) Hemoglobin 13.5 GM/DL (13.0-17.0) 13.9 GM/DL (13.0-17.0) Hematocrit 41.5 % (39.0-51.0) 42.4 % (39.0-51.0) Mean Corpuscular Volume 89.8 FL (80.0-100.0) 90.4 FL (80.0-100.0) Mean Corpuscular Hemoglobin 29.2 PG (27.0-34.0) 29.6 PG (27.0-34.0) Mean Corpuscular Hemoglobin Concent 32.5 % (32.0-36.0) 32.7 % (32.0-36.0) Red Cell Distribution Width 17.1 % (11.6-17.2) 17.8 % (11.6-17.2) Platelet Count 179 TH/MM3 (150-450) 193 TH/MM3 (150-450) Mean Platelet Volume 7.9 FL (7.0-11.0) 7.9 FL (7.0-11.0) Neutrophils (%) (Auto) 72.4 % (16.0-70.0) 65.1 % (16.0-70.0) Lymphocytes (%) (Auto) 20.5 % (9.0-44.0) 24.7 % (9.0-44.0) Monocytes (%) (Auto) 5.8 % (0.0-8.0) 7.3 % (0.0-8.0) Eosinophils (%) (Auto) 0.6 % (0.0-4.0) 1.9 % (0.0-4.0) Basophils (%) (Auto) 0.7 % (0.0-2.0) 1.0 % (0.0-2.0) Neutrophils # (Auto) 5.0 TH/MM3 (1.8-7.7) 4.4 TH/MM3 (1.8-7.7) Lymphocytes # (Auto) 1.4 TH/MM3 (1.0-4.8) 1.7 TH/MM3 (1.0-4.8) Monocytes # (Auto) 0.4 TH/MM3 (0-0.9) 0.5 TH/MM3 (0-0.9) Eosinophils # (Auto) 0.0 TH/MM3 (0-0.4) 0.1 TH/MM3 (0-0.4) Basophils # (Auto) 0.1 TH/MM3 (0-0.2) 0.1 TH/MM3 (0-0.2) CBC Comment DIFF FINAL DIFF FINAL Differential Comment Prothrombin Time 11.7 SEC (9.8-11.6) Prothromb Time International Ratio 1.2 RATIO Activated Partial Thromboplast Time 27.5 SEC (24.3-30.1) Blood Urea Nitrogen 33 MG/DL (7-18) 33 MG/DL (7-18) 37 MG/DL (7-18) Creatinine 1.34 MG/DL (0.60-1.30) 1.35 MG/DL (0.60-1.30) 1.56 MG/DL (0.60-1.30) Random Glucose 78 MG/DL (74-106) 72 MG/DL (74-106) 82 MG/DL (74-106) Total Protein 6.5 GM/DL (6.4-8.2) 6.5 GM/DL (6.4-8.2) 7.1 GM/DL (6.4-8.2) Albumin 3.1 GM/DL (3.4-5.0) 3.1 GM/DL (3.4-5.0) 3.4 GM/DL (3.4-5.0) Calcium Level 9.1 MG/DL (8.5-10.1) 8.9 MG/DL (8.5-10.1) 9.1 MG/DL (8.5-10.1) Magnesium Level 2.3 MG/DL (1.5-2.5) Alkaline Phosphatase 181 U/L (45-117) 164 U/L (45-117) 175 U/L (45-117) Aspartate Amino Transf (AST/SGOT) 49 U/L (15-37) 45 U/L (15-37) 45 U/L (15-37) Alanine Aminotransferase (ALT/SGPT) 23 U/L (12-78) 23 U/L (12-78) 25 U/L (12-78) Total Bilirubin 0.8 MG/DL (0.2-1.0) 0.9 MG/DL (0.2-1.0) 1.0 MG/DL (0.2-1.0) Sodium Level 139 MEQ/L (136-145) 140 MEQ/L (136-145) 139 MEQ/L (136-145) Potassium Level 4.5 MEQ/L (3.5-5.1) 4.4 MEQ/L (3.5-5.1) 4.1 MEQ/L (3.5-5.1) Chloride Level 103 MEQ/L (98-107) 104 MEQ/L (98-107) 101 MEQ/L (98-107) Carbon Dioxide Level 28.5 MEQ/L (21.0-32.0) 27.4 MEQ/L (21.0-32.0) 31.2 MEQ/L (21.0-32.0) Anion Gap 8 MEQ/L (5-15) 9 MEQ/L (5-15) 7 MEQ/L (5-15) Estimat Glomerular Filtration Rate 51 ML/MIN (>89) 50 ML/MIN (>89) 43 ML/MIN (>89) Total Creatine Kinase 59 U/L (39-308) Troponin I 0.12 NG/ML (0.02-0.05) B-Type Natriuretic Peptide 3319 PG/ML (0-100) 2947 PG/ML (0-100) Lipase 132 U/L (73-393) Free Thyroxine 1.28 NG/DL (0.76-1.46) Thyroid Stimulating Hormone 3rd Gen 6.640 uIU/ML (0.358-3.740) Result Diagram: 09/20/1714 09/20/17713 Imaging Last Impressions Abdomen/Pelvis CT 09/18/172 Signed Impressions: Service Date/Time: Tuesday, September 19, 2017 00:00 - CONCLUSION: 1. Abdominal aortic aneurysm. 2. Atherosclerosis. 3. Liver and renal cysts. 4. Small amount free fluid in the pelvis and body wall edema, with large bilateral effusions and consolidation. 5. Small fat containing umbilical hernia. Mike Crouch MD Chest X-Ray 09/18/170 Signed Impressions: Service Date/Time: Monday, September 18, 2017 23:46 - CONCLUSION: Bilateral effusions and consolidation. Mike Crouch MD Assessment and Plan Disease Oriented Problem List: (1) Hypothyroidism (2) HTN (hypertension) (3) HLD (hyperlipidemia) (4) CHF (NYHA class IV, ACC/AHA stage D) (5) Bilateral pleural effusion (6) ED (acute kidney injury) (7) Acute exacerbation of congestive heart failure Symptom Scale: (1) Dyspnea 0-10 Scale: Unable to quantify (2) Anxiety 0-10 Scale: Unable to quantify (3) Pain, abdominal 0-10 Scale: Unable to quantify Pertinent Non-Medical Issues Psychosocial: Spiritual: Legal: Ethical issues impacting care: Important Contacts Tracey Barnett spouse [phone] /[phone] Corina Mancera [phone] . Prognosis This patient was admitted for worsening shortness of breath. Patient has end- stage heart failure EF less than 20%. We will be difficult to manage end-stage heart disease and patient likely have recurrent hospitalizations for symptoms and management. Limited life expectancy, Appropriate for hospice if goals compatible. . Code Status: Full Code Plan * Legal decision maker:Patient today appears alert oriented and able to make his own decisions. He indicates his daughter Sharita is designated as healthcare surrogate with his son as secondary. Request copies of this documentation. * Goals: met with pt, family: understands he has life limiting heart disease and cardiac conditions however they are trying to maximize current medical treatment to keep him stable in order to get him back home to [place] in the coming weeks so that if and when he does decline he can be at home and when it is time for him to he will be able to at home. For now they wish to maximize available medical treatments to keep his cardiac condition/heart failure is stable as possible with plans to get him back to [place] in a couple weeks. Elects full code so that he may try to get back home. * CODE STATUS: Full code * SYMPTOMS: --Dyspnea-patient with ongoing dyspnea especially on exertion more progressive over the past 1 year, more steeply worsening in the past couple of months. End-stage heart failure EF less than 20%. Medical management with diuretics, limited effectiveness. If goals comfort oriented would benefit from opiates, benzodiazepines to decrease dyspnea and associated anxiety. --Anxiety-patient with ongoing anxiety accompanying dyspnea. He does take prn alprazolam with fairly effective relief. Continue to evaluate/monitor --Pain-patient endorses pain across lower abdomen intermittent /dull since around May when he fell striking his abdomen. Abdominal exam is essentially benign aside from some ecchymosis from Lovenox administration.? If this is related to fluctuating umbilical hernia, he indicates sometimes he feels it" sticking out more." * Palliative care will continue to follow during hospital course as condition evolves, to assist patient/decision-maker with understanding of medical conditions, weighing benefits/burdens of treatment options, for clarification of goals of treatment. Additionally will assist with any symptoms of palliative concern . Attestation To help prompt me to consider important information that might be impacting today's encounter and assessment, information from prior notes written by myself or my colleagues may have been "brought forward" into today's note. My signature on this note, however, is an attestation that I personally performed the exam, history, and/or decision-making noted today, and, unless otherwise indicated, the interactions with patient, family, and staff as well as the review of records all occurred today. I also attest that the listed assessment and stated plan reflect my best clinical judgment today based on the combination of historical information, prior notes, and today's exam/ interactions. When time spent is documented, it refers only to time spent today by the signer, or if indicated, combined time spent today by collaborating physician/nurse practitioner. Yoana Godfrey Sep 20, 2017 15:22
[2017-09-20] MEDS: DIAZEPAM 5 MG TAB PO PRN (20:05)
[2017-09-21] VITALS (26 sets, daily range): BP systolic 95–124; BP diastolic 56–82; PULSE 78–113; RESP 14–18; TEMP 97.4–98.3; O2SAT 94–98
[2017-09-21 05:02] LABS: AUTOMATED NEUTROPHIL # 4.4 TH/MM3 (1.8-7.7); BASOPHIL # 0.1 TH/MM3 (0-0.2); BASOPHIL % 0.9 % (0.0-2.0); EOSINOPHIL # 0.1 TH/MM3 (0-0.4); EOSINOPHIL % 1.2 % (0.0-4.0); HEMATOCRIT 40.8 % (39.0-51.0); HEMOGLOBIN 13.1 GM/DL (13.0-17.0); LYMPH % 21.5 % (9.0-44.0); LYMPHOCYTE # 1.3 TH/MM3 (1.0-4.8); MEAN CELL VOLUME 91.3 FL (80.0-100.0); MEAN CORPUSCULAR HEMOGLOBIN 29.4 PG (27.0-34.0); MEAN CORPUSCULAR HGB CONC 32.2 % (32.0-36.0); MONO % 6.9 % (0.0-8.0); MONOCYTE # 0.4 TH/MM3 (0-0.9); NEUT % 69.5 % (16.0-70.0); PLATELET COUNT 158 TH/MM3 (150-450); RED BLOOD COUNT 4.47 MIL/MM3 (4.50-5.90); RED CELL DISTRIBUTION WIDTH 17.9 % (11.6-17.2); WHITE BLOOD COUNT 6.3 TH/MM3 (4.0-11.0)
[2017-09-21] MEDS: LEVOTHYROXINE SODIUM 125 MCG TAB PO SCH (05:32)
[2017-09-21 05:34] LABS: BICARBONATE 33.3 MEQ/L (21.0-32.0); CALCIUM 8.8 MG/DL (8.5-10.1); CREATININE 1.51 MG/DL (0.60-1.30)
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
[2017-09-21] MEDS ORDERED: CARVEDILOL 6.25 MG TAB PO SCH (09:15)
[2017-09-21] MEDS ORDERED: FURO40TA PO (09:57)
[2017-09-21] MEDS ORDERED: CARV6.25 PO (09:57)
--- NOTE | 2017-09-21 09:57 | HHI.DCPOC ---
Discharge Care Plan Diagnosis: (1) HTN (hypertension) (2) Hypothyroidism (3) CHF (NYHA class IV, ACC/AHA stage D) (4) Acute exacerbation of congestive heart failure Goals to Promote Your Health * To prevent worsening of your condition and complications * To maintain your health at the optimal level Directions to Meet Your Goals Take your medications as prescribed Follow your dietary instruction Follow activity as directed Keep your appointments as scheduled Take your immunizations and boosters as scheduled If your symptoms worsen call your PCP, if no PCP go to Urgent Care Center or Emergency Room Smoking is Dangerous to Your Health. Avoid second hand smoke Call the 24-hour hour crisis hotline for domestic abuse at Narendra Jean-Baptiste MD R1 Sep 21, 2017 09:57
[2017-09-21] MEDS: AMIODARONE 200 MG TAB PO SCH (10:14)
[2017-09-21] MEDS: PRAVASTATIN SOD 80 MG TAB PO SCH (10:15)
[2017-09-21] MEDS: GABAPENTIN 300 MG CAP PO SCH ×2 (10:15→20:54)
[2017-09-21] MEDS: SERTRALINE HCL 50 MG TAB PO SCH (10:15)
[2017-09-21] MEDS: ENOXAPARIN SODIUM 30 MG/0.3 ML SYRINGE SQ SCH (10:15)
[2017-09-21] MEDS: SPIRONOLACTONE 25 MG TAB PO SCH (10:15)
[2017-09-21] MEDS: POTASSIUM CHLORIDE 20 MEQ CONTROLLED RELEASE TAB PO SCH (10:15)
[2017-09-21] MEDS: SODIUM CHLORIDE 0.9% FLUSH 10 ML FLUSH IV FLUSH SCH ×2 (10:16→20:54)
[2017-09-21] MEDS: ASPIRIN 81 MG CHEW TAB CHEW SCH (10:16)
[2017-09-21] MEDS: predniSONE 5 MG TAB PO SCH (10:16)
[2017-09-21] MEDS: FUROSEMIDE 40 MG TAB PO SCH ×2 (10:24→18:44)
--- NOTE | 2017-09-21 10:41 | HHI.FPPN ---
Subjective Remarks No acute events overnight. Patient states he is feeling much better today. Denies SOB, CP. States the swelling in his legs and abdomen have decreased. He expressed desire to return to SNF today if possible. (Narendra Jean-Baptiste MD R1) Objective Vitals Vital Signs Date Time Temp Pulse Resp B/P (MAP) Pulse Ox O2 Delivery O2 Flow Rate FiO2 09/21/17 06:00 101 09/21/17 05:15 98.0 103 17 124/82 (96) 96 09/21/17 05:00 103 09/21/17 04:01 101 09/21/17 03:15 105 09/21/17 01:00 101 09/21/17 00:00 103 09/20/17 23:28 98.1 101 18 115/83 (94) 98 09/20/17 23:00 102 09/20/17 22:00 101 09/20/17 21:00 100 09/20/17 20:00 99 09/20/17 19:30 97.3 102 16 101/76 (84) 97 09/20/17 19:00 101 09/20/17 18:01 102 09/20/17 17:10 99 09/20/17 16:00 98 09/20/17 15:53 98.0 99 20 97/69 (78) 94 09/20/17 15:53 99 09/20/17 14:27 96 09/20/17 13:06 98 09/20/17 12:04 99 09/20/17 11:58 100 09/20/17 11:58 97.7 100 20 94/65 (75) 93 I/O 09/20/17 09/20/17 09/20/17 09/21/17 09/21/17 09/21/17 07:00 15:00 23:00 07:00 15:00 23:00 Intake Total 360 ml 480 ml 480 ml Output Total 650 ml 950 ml 750 ml Balance -290 ml -470 ml -270 ml Intake Oral 360 ml 480 ml 480 ml Output Urine Total 650 ml 950 ml 750 ml # Bowel Movements 0 (Narendra Jean-Baptiste MD R1) Result Diagram: 09/21/177 09/21/17436 Objective Remarks GENERAL: Older gentleman sitting in upright in bed eating breakfast. More alert/ awake than prior exams. SKIN: Warm and dry. HEAD: Normocephalic. EYES: No scleral icterus. No injection or drainage. NECK: Supple, trachea midline. No JVD or lymphadenopathy. CARDIOVASCULAR: Regular rate and rhythm without murmurs, gallops, or rubs. RESPIRATORY: Clear to auscultation bilaterally. Breath sounds equal bilaterally.. No accessory muscle use. GASTROINTESTINAL: Abdomen soft, non-tender, nondistended. MUSCULOSKELETAL: No cyanosis. 1+ pitting edema up to mid chan bilaterally - improved from prior exams. No erythema or calf tenderness. BACK: Nontender without obvious deformity. No CVA tenderness. (Narendra Jean-Baptiste MD R1) A/P Assessment and Plan Patient is an 82-year-old male with a past medical history significant for systolic CHF with EF <10% with AICD, hypothyroidism, hypertension, and hyperlipidemia who presents for lower extremity edema and is admitted for CHF exacerbation. Discharge Planning Discharge to SNF likely on 09/22 (Narendra Jean-Baptiste MD R1) Attending Attestation Patient seen, examined, and discussed with Dr. Jean-Baptiste during rounds this morning. I agree with assessment and management as documented and discussed with me. Pt reports breathing is improved. He feels swelling, although present, is better. Appreciate cardiology, who made some medication changes this morning. Anticipate discharge to SNF tomorrow. (Taniya Sanabria MD) Problem List: (1) CHF (NYHA class IV, ACC/AHA stage D) ICD Codes: I50.9 - Heart failure, unspecified Status: Chronic Plan: Acute on chronic CHF 09/04/17 echocardiogram significant for moderately dilated left ventricle, left ventricular systolic function severely reduced with EF less than 20%, diffuse global hypokinesis with distinct regional wall motion abnormalities Patient breathing comfortably on exam without complaints of shortness of breath. O2 saturation 97% on 2L NC. s/p Lasix 40 mg IV 2 in ED on 09/19 s/p Lasix 20mg IV x 1 on 09/19 Continue home Lasix 40 PO BID Cardiology consulted - recommending d/c Norvasc and increase Coreg to 12.5mg daily. Plan: -Monitor renal function with a.m. BMP - Continue home medications including amiodarone,, clonidine, Lasix, and spironolactone. Increasing Coreg to 12.5mg daily - Continue to monitor for signs of fluid overload and adjust Lasix dosing as needed -Encourage patient to sit up in bed with legs below chest or in chair with legs hanging down. -Low-salt diet less than 2 g per day. Fluid restrict to 1.5 L per day. -Strict Is and Os. Daily weights. Supplemental oxygen and monitor on pulse ox. -Patient improved significantly on today's exam. Patient feeling much better and wishing to return to SNF Ok to d/c to SNF per cardiology, primary team. Will plan for d/c on 09/22 if patient tolerates new medications overnight (2) ED (acute kidney injury) ICD Codes: N17.9 - Acute kidney failure, unspecified Status: Chronic Plan: Creatinine 1.34 on admission, Creat 1.51 today Continue to monitor with BMP (3) HTN (hypertension) ICD Codes: I10 - Essential (primary) hypertension Status: Chronic Plan: Stable, continue home medications as described above (4) HLD (hyperlipidemia) ICD Codes: E78.5 - Hyperlipidemia, unspecified Status: Chronic Plan: Continue pravastatin 80 mg by mouth daily (5) Hypothyroidism ICD Codes: E03.9 - Hypothyroidism, unspecified Status: Chronic Plan: TSH 6.64, normal T4 on admission Continue Synthroid 125 g by mouth daily (6) Nutrition, metabolism, and development symptoms ICD Codes: R63.8 - Other symptoms and signs concerning food and fluid intake Status: Acute Plan: Fluids: None Electrolytes: wnl, continue to monitor and replete PRN Nutrition: Heart Healthy DVT ppx: Lovenox 30mg SQ Q24H (Narendra Jean-Baptiste MD R1) Problem Qualifiers (1) HTN (hypertension): Qualified Codes: I10 - Essential (primary) hypertension (2) HLD (hyperlipidemia): Qualified Codes: E78.5 - Hyperlipidemia, unspecified (3) Hypothyroidism: Qualified Codes: E03.9 - Hypothyroidism, unspecified Narendra Jean-Baptiste MD R1 Sep 21, 2017 10:41 Taniya Sanabria MD Sep 21, 2017 16:55
[2017-09-21] MEDS: diphenhydrAMINE HCL 50 MG CAP PO PRN (22:05)
[2017-09-22] VITALS (22 sets, daily range): BP systolic 70–112; BP diastolic 56–74; PULSE 59–130; RESP 16–18; TEMP 97.5–98; O2SAT 94–100
[2017-09-22] MEDS: DIAZEPAM 5 MG TAB PO PRN ×2 (04:12→14:46)
[2017-09-22] MEDS: LEVOTHYROXINE SODIUM 125 MCG TAB PO SCH (05:24)
[2017-09-22 06:12] LABS: CALCIUM 8.6 MG/DL (8.5-10.1); CREATININE 1.54 MG/DL (0.60-1.30)
[2017-09-22 06:20] LABS: AUTOMATED NEUTROPHIL # 4.9 TH/MM3 (1.8-7.7); BASOPHIL # 0.1 TH/MM3 (0-0.2); BASOPHIL % 0.9 % (0.0-2.0); EOSINOPHIL # 0.1 TH/MM3 (0-0.4); EOSINOPHIL % 0.8 % (0.0-4.0); HEMATOCRIT 41.2 % (39.0-51.0); HEMOGLOBIN 13.3 GM/DL (13.0-17.0); LYMPH % 21.1 % (9.0-44.0); LYMPHOCYTE # 1.5 TH/MM3 (1.0-4.8); MEAN CELL VOLUME 92.3 FL (80.0-100.0); MEAN CORPUSCULAR HEMOGLOBIN 29.8 PG (27.0-34.0); MEAN CORPUSCULAR HGB CONC 32.3 % (32.0-36.0); MEAN PLATELET VOLUME 8.7 FL (7.0-11.0); MONO % 6.9 % (0.0-8.0); MONOCYTE # 0.5 TH/MM3 (0-0.9); NEUT % 70.3 % (16.0-70.0); PLATELET COUNT 138 TH/MM3 (150-450); RED BLOOD COUNT 4.47 MIL/MM3 (4.50-5.90); RED CELL DISTRIBUTION WIDTH 17.9 % (11.6-17.2)
--- NOTE | 2017-09-22 07:32 | PD.CARD.PN ---
Subjective Subjective Remarks Patient complaining of anxiety today. States he had problems sleeping and received Benadryl and Valium overnight. Blood pressure soft overnight, denies any lightheadedness or dizziness. He denies any chest pain or shortness of breath. Objective Medications Current Medications Medications (Trade) Dose Ordered Sig/Mike Route Start Time Stop Time Status Last Admin (Aspirin Chew) 162 mg DAILY CHEW 09/19/17 09:00 09/21/17 10:16 (NS Flush) 2 ml UNSCH PRN IV FLUSH 09/19/17 02:00 (NS Flush) 2 ml BID IV FLUSH 09/19/17 09:00 09/21/17 20:54 (Cordarone) 200 mg DAILY PO 09/19/17 09:00 09/21/17 10:14 (Synthroid) 125 mcg DAILY@0600 PO 09/19/17 06:00 09/22/17 05:24 (KCl) 20 meq DAILY PO 09/19/17 09:00 09/21/17 10:15 (Pravachol) 80 mg DAILY PO 09/19/17 09:00 09/21/17 10:15 (Deltasone) 5 mg DAILY PO 09/19/17 09:00 09/21/17 10:16 (Zoloft) 50 mg DAILY PO 09/19/17 09:00 09/21/17 10:15 (Aldactone) 25 mg DAILY PO 09/19/17 09:00 09/21/17 10:15 (Lovenox Inj) 30 mg Q24H SQ 09/19/17 09:00 09/21/17 10:15 (Pill Splitter) 1 ea UNSCH PRN OTHER 09/19/17 02:45 (Lasix) 40 mg BID@0900,1800 PO 09/19/17 18:00 09/21/17 18:44 (Neurontin) 600 mg HS PO 09/19/17 21:00 09/21/17 20:54 (Neurontin) 300 mg DAILY PO 09/20/17 09:00 09/21/17 10:15 (Zofran Inj) 4 mg Q6HR PRN IV PUSH 09/20/17 08:30 09/20/17 17:38 (Valium) 5 mg Q12HR PRN PO 09/20/17 15:00 09/22/17 04:12 (Coreg) 12.5 mg DAILY PO 09/21/17 09:15 09/21/17 10:18 (Benadryl) 50 mg HS PRN PO 09/21/17 20:45 09/21/17 22:05 Vital Signs / I&O Vital Signs Date Time Temp Pulse Resp B/P (MAP) Pulse Ox O2 Delivery O2 Flow Rate FiO2 09/22/17 06:00 109 09/22/17 05:00 107 09/22/17 04:00 108 09/22/17 03:00 104 09/22/17 03:00 96 Room Air 09/22/17 03:00 98.0 107 16 70/56 (61) 96 09/22/17 02:00 102 09/22/17 01:00 105 09/22/17 00:00 108 09/21/17 23:00 97.6 103 16 95/56 (69) 94 09/21/17 23:00 94 Room Air 09/21/17 23:00 92 09/21/17 22:00 100 09/21/17 21:00 78 09/21/17 20:00 100 09/21/17 19:35 Nasal Cannula 2.00 09/21/17 19:30 98 Nasal Cannula 3.00 09/21/17 19:30 97.7 100 18 106/69 (81) 98 09/21/17 19:00 101 09/21/17 18:00 104 09/21/17 17:00 101 09/21/17 16:00 101 09/21/17 15:00 98.3 97 14 103/75 (84) 98 09/21/17 15:00 103 09/21/17 14:00 101 09/21/17 13:00 102 09/21/17 12:00 102 09/21/17 12:00 95 Nasal Cannula 3.00 09/21/17 11:00 104 09/21/17 11:00 97.4 104 16 105/77 (86) 95 09/21/17 10:00 110 09/21/17 09:00 108 09/21/17 08:00 109 I/O 09/21/17 09/21/17 09/21/17 09/22/17 09/22/17 09/22/17 07:00 15:00 23:00 07:00 15:00 23:00 Intake Total 480 ml 360 ml 240 ml Output Total 750 ml 400 ml 1375 ml Balance -270 ml -40 ml -1135 ml Intake Oral 480 ml 360 ml 240 ml Output Urine Total 750 ml 400 ml 1375 ml # Voids 0 # Bowel Movements 1 Physical Exam GENERAL: Well-developed well-nourished. In no acute distress. NECK: No carotid bruits. No JVD. CARDIOVASCULAR: Regular rate and rhythm. No murmur appreciated. RESPIRATORY: No accessory muscle use. Clear to auscultation. Diminished breath sounds in the bases. No crackles. MUSCULOSKELETAL: No clubbing or cyanosis. 2+ edema on the right and 1+ on the left. NEUROLOGICAL: Awake and alert. Normal speech. Laboratory Laboratory Tests Test 09/22/17 04:41 White Blood Count 7.0 TH/MM3 Red Blood Count 4.47 MIL/MM3 Hemoglobin 13.3 GM/DL Hematocrit 41.2 % Mean Corpuscular Volume 92.3 FL Mean Corpuscular Hemoglobin 29.8 PG Mean Corpuscular Hemoglobin Concent 32.3 % Red Cell Distribution Width 17.9 % Platelet Count 138 TH/MM3 Mean Platelet Volume 8.7 FL Neutrophils (%) (Auto) 70.3 % Lymphocytes (%) (Auto) 21.1 % Monocytes (%) (Auto) 6.9 % Eosinophils (%) (Auto) 0.8 % Basophils (%) (Auto) 0.9 % Neutrophils # (Auto) 4.9 TH/MM3 Lymphocytes # (Auto) 1.5 TH/MM3 Monocytes # (Auto) 0.5 TH/MM3 Eosinophils # (Auto) 0.1 TH/MM3 Basophils # (Auto) 0.1 TH/MM3 CBC Comment DIFF FINAL Differential Comment Blood Urea Nitrogen 37 MG/DL Creatinine 1.54 MG/DL Random Glucose 72 MG/DL Calcium Level 8.6 MG/DL Sodium Level 141 MEQ/L Potassium Level 4.0 MEQ/L Chloride Level 103 MEQ/L Carbon Dioxide Level 32.0 MEQ/L Anion Gap 6 MEQ/L Estimat Glomerular Filtration Rate 43 ML/MIN Imaging Last Impressions Abdomen/Pelvis CT 09/18/17 2223 Signed Impressions: Service Date/Time: Tuesday, September 19, 2017 00:00 - CONCLUSION: 1. Abdominal aortic aneurysm. 2. Atherosclerosis. 3. Liver and renal cysts. 4. Small amount free fluid in the pelvis and body wall edema, with large bilateral effusions and consolidation. 5. Small fat containing umbilical hernia. Mike Crouch MD Chest X-Ray 09/18/17 4150 Signed Impressions: Service Date/Time: Monday, September 18, 2017 23:46 - CONCLUSION: Bilateral effusions and consolidation. Mike Crouch MD Assessment and Plan Assessment and Plan 82-year-old male with a past medical history of systolic CHF EF <20%, single lead AICD/pacer, ventricular fibrillation, CAD s/p CABG HTN, HLD, hypothyroidism , chronic pain, anxiety/depression. Recent admission for CHF exacerbation. The patient was having worsening lower extremity swelling and presented back to the hospital. He reports has been having good urine output and lower extremity swelling is improving. Has been having negative fluid balance this with IV Lasix. Palliative care was consulted, apparently the patient is hoping to move back to [place] before he dies. Cardiology has been consulted to optimize medical management. Acute exacerbation of chronic systolic CHF: Continue diuresis, monitor I's and O's. Clinically improved. Ischemic cardiomyopathy EF less than 20%: Poor candidate for BiV device. No ACEi or ARB with history of angioedema. Didn't tolerate carvedilol increase, resume 6.25 mg. CAD: Stable. Continue aspirin and statin. Single-lead AICD/ventricular pacer in place: Device interrogated by rep 09/04 with no events noted. Stable. Continue amiodarone. Aortic valve disease: Moderate stenosis and mild regurgitation seen on recent echo. Medical management. ED vs CKD: Monitor renal function with diuresis. Rodolfo Ca Sep 22, 2017 07:32
[2017-09-22] MEDS: FUROSEMIDE 40 MG TAB PO SCH ×2 (09:00→18:00)
[2017-09-22] MEDS: SODIUM CHLORIDE 0.9% FLUSH 10 ML FLUSH IV FLUSH SCH ×2 (09:00→19:57)
[2017-09-22] MEDS: SERTRALINE HCL 50 MG TAB PO SCH (09:41)
[2017-09-22] MEDS: PRAVASTATIN SOD 80 MG TAB PO SCH (09:41)
[2017-09-22] MEDS: POTASSIUM CHLORIDE 20 MEQ CONTROLLED RELEASE TAB PO SCH (09:41)
[2017-09-22] MEDS: SPIRONOLACTONE 25 MG TAB PO SCH (09:41)
[2017-09-22] MEDS: ENOXAPARIN SODIUM 30 MG/0.3 ML SYRINGE SQ SCH (09:44)
[2017-09-22] MEDS: AMIODARONE 200 MG TAB PO SCH (09:45)
[2017-09-22] MEDS: GABAPENTIN 300 MG CAP PO SCH ×2 (09:45→19:56)
[2017-09-22] MEDS: CARVEDILOL 6.25 MG TAB PO SCH (09:45)
[2017-09-22] MEDS: predniSONE 5 MG TAB PO SCH (09:45)
[2017-09-22] MEDS: ASPIRIN 81 MG CHEW TAB CHEW SCH (09:46)
[2017-09-22] MEDS ORDERED: CARV6.25 PO (10:13)
--- NOTE | 2017-09-22 10:17 | HHI.FPPN ---
Subjective Remarks Patient had trouble falling asleep last night and requested Benadryl which she usually takes at night to assist with sleep. He was given 50 mg of Benadryl by mouth. States he was able to sleep well until he woke up around 4 AM and was unable to return to sleep but was able to sleep 6 hours. Notably his blood pressure dropped to 70/56 overnight, he was asymptomatic at that time and blood pressures this morning were 110/70 during rounds. He walked around the halls on his own and did experience some fatigue following this, but otherwise reports improvement in her shortness of breath as well as peripheral edema. Denies chest pain. Objective Vitals Vital Signs Date Time Temp Pulse Resp B/P (MAP) Pulse Ox O2 Delivery O2 Flow Rate FiO2 09/22/17 07:00 104 09/22/17 07:00 97 Room Air 09/22/17 06:00 109 09/22/17 05:00 107 09/22/17 04:00 108 09/22/17 03:00 104 09/22/17 03:00 96 Room Air 09/22/17 03:00 98.0 107 16 70/56 (61) 96 09/22/17 02:00 102 09/22/17 01:00 105 09/22/17 00:00 108 09/21/17 23:00 97.6 103 16 95/56 (69) 94 09/21/17 23:00 94 Room Air 09/21/17 23:00 92 09/21/17 22:00 100 09/21/17 21:00 78 09/21/17 20:00 100 09/21/17 19:35 Nasal Cannula 2.00 09/21/17 19:30 98 Nasal Cannula 3.00 09/21/17 19:30 97.7 100 18 106/69 (81) 98 09/21/17 19:00 101 09/21/17 18:00 104 09/21/17 17:00 101 09/21/17 16:00 101 09/21/17 15:00 98.3 97 14 103/75 (84) 98 09/21/17 15:00 103 09/21/17 14:00 101 09/21/17 13:00 102 09/21/17 12:00 102 09/21/17 12:00 95 Nasal Cannula 3.00 09/21/17 11:00 104 09/21/17 11:00 97.4 104 16 105/77 (86) 95 I/O 09/21/17 09/21/17 09/21/17 09/22/17 09/22/17 09/22/17 07:00 15:00 23:00 07:00 15:00 23:00 Intake Total 480 ml 360 ml 240 ml Output Total 750 ml 400 ml 1375 ml Balance -270 ml -40 ml -1135 ml Intake Oral 480 ml 360 ml 240 ml Output Urine Total 750 ml 400 ml 1375 ml # Voids 0 # Bowel Movements 1 Result Diagram: 09/22/17 0441 09/22/17 0441 Objective Remarks GENERAL: Older gentleman sitting in upright in bed in no acute distress. Speaking in full sentences. SKIN: Warm and dry. HEAD: Normocephalic. EYES: No scleral icterus. No injection or drainage. NECK: Supple, trachea midline. No JVD or lymphadenopathy. CARDIOVASCULAR: Regular rate and rhythm without murmurs, gallops, or rubs. RESPIRATORY: Clear to auscultation bilaterally. Breath sounds equal bilaterally. No accessory muscle use. GASTROINTESTINAL: Abdomen soft, non-tender, nondistended. MUSCULOSKELETAL: No cyanosis. 1+ pitting edema up to mid chan bilaterally - significantly improved from prior exams. No erythema or calf tenderness. BACK: Nontender without obvious deformity. No CVA tenderness. A/P Assessment and Plan Patient is an 82-year-old male with a past medical history significant for systolic CHF with EF <10% with AICD, hypothyroidism, hypertension, and hyperlipidemia who presents for lower extremity edema and is admitted for CHF exacerbation. Discharge Planning Discharge to SNF likely on 09/22 Problem List: (1) CHF (NYHA class IV, ACC/AHA stage D) ICD Codes: I50.9 - Heart failure, unspecified Status: Chronic Plan: Acute on chronic CHF 09/04/17 echocardiogram significant for moderately dilated left ventricle, left ventricular systolic function severely reduced with EF less than 20%, diffuse global hypokinesis with distinct regional wall motion abnormalities Patient breathing comfortably on exam without complaints of shortness of breath. O2 saturation 97% on 2L NC. s/p Lasix 40 mg IV 2 in ED on 09/19 s/p Lasix 20mg IV x 1 on 09/19 Continue home Lasix 40 PO BID Cardiology consulted - recommending d/c Norvasc and increase Coreg to 12.5mg daily. Plan: -Monitor renal function with a.m. BMP - Continue home medications including amiodarone, clonidine, Lasix, and spironolactone. Resuming home Coreg dose of 6.25 mg daily - Continue to monitor for signs of fluid overload and adjust Lasix dosing as needed -Encourage patient to sit up in bed with legs below chest or in chair with legs hanging down. -Low-salt diet less than 2 g per day. Fluid restrict to 1.5 L per day. -Strict Is and Os. Daily weights. Supplemental oxygen and monitor on pulse ox. -Patient improved significantly on today's exam. Patient feeling much better and wishing to return to SNF Ok to d/c to SNF per cardiology, primary team. Will plan for d/c on 09/22 (2) HTN (hypertension) ICD Codes: I10 - Essential (primary) hypertension Status: Chronic Plan: Stable, continue home medications as described above (3) ED (acute kidney injury) ICD Codes: N17.9 - Acute kidney failure, unspecified Status: Chronic Plan: Creatinine 1.34 on admission, Creat 1.54 today Continue to monitor with BMP (4) HLD (hyperlipidemia) ICD Codes: E78.5 - Hyperlipidemia, unspecified Status: Chronic Plan: Continue pravastatin 80 mg by mouth daily (5) Hypothyroidism ICD Codes: E03.9 - Hypothyroidism, unspecified Status: Chronic Plan: TSH 6.64, normal T4 on admission Continue Synthroid 125 g by mouth daily (6) Nutrition, metabolism, and development symptoms ICD Codes: R63.8 - Other symptoms and signs concerning food and fluid intake Status: Acute Plan: Fluids: None Electrolytes: wnl, continue to monitor and replete PRN Nutrition: Heart Healthy DVT ppx: Lovenox 30mg SQ Q24H Problem Qualifiers (1) HTN (hypertension): Qualified Codes: I10 - Essential (primary) hypertension (2) HLD (hyperlipidemia): Qualified Codes: E78.5 - Hyperlipidemia, unspecified (3) Hypothyroidism: Qualified Codes: E03.9 - Hypothyroidism, unspecified Narendra Jean-Baptiste MD R1 Sep 22, 2017 10:17
[2017-09-22] MEDS: PANTOPRAZOLE SOD 40 MG DELAYED RELEASE TAB PO SCH (11:58)
[2017-09-22] MEDS: CALCIUM CARBONATE 500 MG CHEWABLE TAB CHEW SCH ×2 (11:59→21:00)
--- NOTE | 2017-09-22 14:07 | HHI.HCSW ---
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 She reports Mr. Barnett is not doing well today, states he verbalized "he thinks today may be his day". Offered emotional support. Sharita reports family is discussing CODE STATUS and patient' s son is on his way here from out of state. . Follow Up Visit Confirmed they have palliative care contact information. Palliative care will continue to follow throughout hospitalization. Kiana Rubi, SPECIAL EFFECTS ARTIST Sep 22, 2017 14:07
--- NOTE | 2017-09-22 17:01 | HHI.HCPN ---
Reason for visit a. To assist with evaluation and management of symptoms including:dyspnea, anxiety b. To assist medical decision maker(s) with: better understanding of current medical conditions; weighing benefits/burdens of medical treatment options; making medical treatment decisions. Subjective/Interval History Pt seen today to follow up on comfort, goals. Notify patient with some ex episodes of ectopy, hypotension overnight. Cardiology following nothing additional to add continue medical management. Family hopeful to get patient back home to [place]. BUN and creatinine stable. BP overnight 70s to 90s systolic. Patient alert this morning more lethargic this afternoon. Nursing reports restless. Patient seen in room with , daughter, niece at bedside. He is lethargic he is picking and restless at times. Repetitive, not really able to participate in conversations. Daughter Sharita indicates that he has been speaking about his bank accounts and car titles etc. and seems to be trying to close his affairs. He verbalized earlier to family that he thinks it's time to go. His son is en route from [place] expected to arrive around 2 or 3 AM. Gently spoke with family at bedside regarding CODE STATUS and that patient high risk for ongoing cardiac complications and could have cardiopulmonary arrest. They indicate he will remain full code until son arrived from out of town so he is able to see him to say goodbye. Once son arrives they will elected DNR and hospice for comfort measures. They would want him at a hospice care center for comfort at end-of-life. For right now they do not wish to change any of his interventions or treatments they hope he will remained stable until his son arrives. . Advance Directives Living Will: Completed, but not made available Health Care Surrogate: Completed, but not made available Objective Vital Signs Date Time Temp Pulse Resp B/P (MAP) Pulse Ox O2 Delivery O2 Flow Rate FiO2 09/22/17 11:00 97 Room Air 09/22/17 10:00 105 09/22/17 09:00 104 09/22/17 08:00 109 09/22/17 07:00 104 09/22/17 07:00 97 Room Air 09/22/17 06:00 109 09/22/17 05:00 107 09/22/17 04:00 108 09/22/17 03:00 104 09/22/17 03:00 96 Room Air 09/22/17 03:00 98.0 107 16 70/56 (61) 96 09/22/17 02:00 102 09/22/17 01:00 105 09/22/17 00:00 108 09/21/17 23:00 97.6 103 16 95/56 (69) 94 09/21/17 23:00 94 Room Air 09/21/17 23:00 92 09/21/17 22:00 100 09/21/17 21:00 78 09/21/17 20:00 100 09/21/17 19:35 Nasal Cannula 2.00 09/21/17 19:30 98 Nasal Cannula 3.00 09/21/17 19:30 97.7 100 18 106/69 (81) 98 09/21/17 19:00 101 09/21/17 18:00 104 09/21/17 17:00 101 Intake & Output 09/22/17 09/22/17 07:00 19:00 Intake Total 240 ml Output Total 1375 ml Balance -1135 ml Intake Oral 240 ml Output Urine Total 1375 ml # Voids 0 # Bowel Movements 1 Physical Exam CONSTITUTIONAL/GENERAL: This is an adequately nourished patient, being assisted back to bed from [facility] by nursing TUBES/LINES/DRAINS: Peripheral IV bilateral upper extremities, CARDIOVASCULAR: Regular rate and rhythm . No JVD. Peripheral pulses symmetric. 1 -2+ edema to lower legs RESPIRATORY/CHEST: Symmetric, unlabored respirations. Clear to auscultation. Decreased air movement. GASTROINTESTINAL: Abdomen soft, non tender, nondistended. No hepato-splenomegaly , or palpable masses. No guarding. Bowel sounds present. NEUROLOGICAL: lethargic, mumbling/repetitive. Partially oriented to self/ family. Follows some commands. Moves all 4 extremities. PSYCHIATRIC: intermittently restless, no apparent hallucinations Diagnostic Tests Laboratory Laboratory Tests Test 09/20/17 07:14 09/21/17 04:37 09/22/17 04:41 White Blood Count 6.7 TH/MM3 (4.0-11.0) 6.3 TH/MM3 (4.0-11.0) 7.0 TH/MM3 (4.0-11.0) Red Blood Count 4.69 MIL/MM3 (4.50-5.90) 4.47 MIL/MM3 (4.50-5.90) 4.47 MIL/MM3 (4.50-5.90) Hemoglobin 13.9 GM/DL (13.0-17.0) 13.1 GM/DL (13.0-17.0) 13.3 GM/DL (13.0-17.0) Hematocrit 42.4 % (39.0-51.0) 40.8 % (39.0-51.0) 41.2 % (39.0-51.0) Mean Corpuscular Volume 90.4 FL (80.0-100.0) 91.3 FL (80.0-100.0) 92.3 FL (80.0-100.0) Mean Corpuscular Hemoglobin 29.6 PG (27.0-34.0) 29.4 PG (27.0-34.0) 29.8 PG (27.0-34.0) Mean Corpuscular Hemoglobin Concent 32.7 % (32.0-36.0) 32.2 % (32.0-36.0) 32.3 % (32.0-36.0) Red Cell Distribution Width 17.8 % (11.6-17.2) 17.9 % (11.6-17.2) 17.9 % (11.6-17.2) Platelet Count 193 TH/MM3 (150-450) 158 TH/MM3 (150-450) 138 TH/MM3 (150-450) Mean Platelet Volume 7.9 FL (7.0-11.0) 8.0 FL (7.0-11.0) 8.7 FL (7.0-11.0) Neutrophils (%) (Auto) 65.1 % (16.0-70.0) 69.5 % (16.0-70.0) 70.3 % (16.0-70.0) Lymphocytes (%) (Auto) 24.7 % (9.0-44.0) 21.5 % (9.0-44.0) 21.1 % (9.0-44.0) Monocytes (%) (Auto) 7.3 % (0.0-8.0) 6.9 % (0.0-8.0) 6.9 % (0.0-8.0) Eosinophils (%) (Auto) 1.9 % (0.0-4.0) 1.2 % (0.0-4.0) 0.8 % (0.0-4.0) Basophils (%) (Auto) 1.0 % (0.0-2.0) 0.9 % (0.0-2.0) 0.9 % (0.0-2.0) Neutrophils # (Auto) 4.4 TH/MM3 (1.8-7.7) 4.4 TH/MM3 (1.8-7.7) 4.9 TH/MM3 (1.8-7.7) Lymphocytes # (Auto) 1.7 TH/MM3 (1.0-4.8) 1.3 TH/MM3 (1.0-4.8) 1.5 TH/MM3 (1.0-4.8) Monocytes # (Auto) 0.5 TH/MM3 (0-0.9) 0.4 TH/MM3 (0-0.9) 0.5 TH/MM3 (0-0.9) Eosinophils # (Auto) 0.1 TH/MM3 (0-0.4) 0.1 TH/MM3 (0-0.4) 0.1 TH/MM3 (0-0.4) Basophils # (Auto) 0.1 TH/MM3 (0-0.2) 0.1 TH/MM3 (0-0.2) 0.1 TH/MM3 (0-0.2) CBC Comment DIFF FINAL DIFF FINAL DIFF FINAL Differential Comment Blood Urea Nitrogen 37 MG/DL (7-18) 37 MG/DL (7-18) 37 MG/DL (7-18) Creatinine 1.56 MG/DL (0.60-1.30) 1.51 MG/DL (0.60-1.30) 1.54 MG/DL (0.60-1.30) Random Glucose 82 MG/DL (74-106) 87 MG/DL (74-106) 72 MG/DL (74-106) Total Protein 7.1 GM/DL (6.4-8.2) Albumin 3.4 GM/DL (3.4-5.0) Calcium Level 9.1 MG/DL (8.5-10.1) 8.8 MG/DL (8.5-10.1) 8.6 MG/DL (8.5-10.1) Alkaline Phosphatase 175 U/L (45-117) Aspartate Amino Transf (AST/SGOT) 45 U/L (15-37) Alanine Aminotransferase (ALT/SGPT) 25 U/L (12-78) Total Bilirubin 1.0 MG/DL (0.2-1.0) Sodium Level 139 MEQ/L (136-145) 140 MEQ/L (136-145) 141 MEQ/L (136-145) Potassium Level 4.1 MEQ/L (3.5-5.1) 4.2 MEQ/L (3.5-5.1) 4.0 MEQ/L (3.5-5.1) Chloride Level 101 MEQ/L (98-107) 102 MEQ/L (98-107) 103 MEQ/L (98-107) Carbon Dioxide Level 31.2 MEQ/L (21.0-32.0) 33.3 MEQ/L (21.0-32.0) 32.0 MEQ/L (21.0-32.0) Anion Gap 7 MEQ/L (5-15) 5 MEQ/L (5-15) 6 MEQ/L (5-15) Estimat Glomerular Filtration Rate 43 ML/MIN (>89) 44 ML/MIN (>89) 43 ML/MIN (>89) B-Type Natriuretic Peptide 2947 PG/ML (0-100) 2543 PG/ML (0-100) Result Diagram: 09/22/171 09/22/171 Imaging Last Impressions Abdomen/Pelvis CT 09/18/172 Signed Impressions: Service Date/Time: Tuesday, September 19, 2017 00:00 - CONCLUSION: 1. Abdominal aortic aneurysm. 2. Atherosclerosis. 3. Liver and renal cysts. 4. Small amount free fluid in the pelvis and body wall edema, with large bilateral effusions and consolidation. 5. Small fat containing umbilical hernia. Mike Crouch MD Chest X-Ray 09/18/170 Signed Impressions: Service Date/Time: Monday, September 18, 2017 23:46 - CONCLUSION: Bilateral effusions and consolidation. Mike Crouch MD Assessment and Plan Disease Oriented Problem List: (1) Hypothyroidism (2) HTN (hypertension) (3) HLD (hyperlipidemia) (4) CHF (NYHA class IV, ACC/AHA stage D) (5) Bilateral pleural effusion (6) ED (acute kidney injury) (7) Acute exacerbation of congestive heart failure Symptom Scale: (1) Dyspnea 0-10 Scale: Unable to quantify (2) Anxiety 0-10 Scale: Unable to quantify (3) Pain, abdominal 0-10 Scale: Unable to quantify Pertinent Non-Medical Issues Psychosocial: Spiritual: Legal: Ethical issues impacting care: Important Contacts Tracey Barnett spouse [phone] /[phone] Corina Mancera [phone] . Prognosis This patient was admitted for worsening shortness of breath. Patient has end- stage heart failure EF less than 20%. We will be difficult to manage end-stage heart disease and patient likely have recurrent hospitalizations for symptoms and management. Limited life expectancy, Appropriate for hospice if goals compatible. . Code Status: Full Code Plan * Legal decision maker:Patient today appears alert oriented and able to make his own decisions. He indicates his daughter Sharita is designated as healthcare surrogate with his son as secondary. Request copies of this documentation. * Goals: Patient and family awaiting son's arrival from [place] around 2 or 3 AM overnight. They wish he remain full code until that time however one son arrives they will request DNR status and hospice with possible transfer to a care center if able for symptom management at end-of-life. * CODE STATUS: Full code * SYMPTOMS: --Dyspnea-patient with ongoing dyspnea especially on exertion more progressive over the past 1 year, more steeply worsening in the past couple of months. End-stage heart failure EF less than 20%. Medical management with diuretics, limited effectiveness. If goals comfort oriented would benefit from opiates, benzodiazepines to decrease dyspnea and associated anxiety. --Anxiety-patient with ongoing anxiety accompanying dyspnea. He does take prn alprazolam with fairly effective relief. Continue to evaluate/monitor --Pain-patient endorsed pain across lower abdomen intermittent /dull since around May when he fell striking his abdomen. Abdominal exam is essentially benign aside from some ecchymosis from Lovenox administration.? If this is related to fluctuating umbilical hernia, he indicates sometimes he feels it" sticking out more." Today lethargic. * Palliative care will continue to follow during hospital course as condition evolves, to assist patient/decision-maker with understanding of medical conditions, weighing benefits/burdens of treatment options, for clarification of goals of treatment. Additionally will assist with any symptoms of palliative concern . Attestation To help prompt me to consider important information that might be impacting today's encounter and assessment, information from prior notes written by myself or my colleagues may have been "brought forward" into today's note. My signature on this note, however, is an attestation that I personally performed the exam, history, and/or decision-making noted today, and, unless otherwise indicated, the interactions with patient, family, and staff as well as the review of records all occurred today. I also attest that the listed assessment and stated plan reflect my best clinical judgment today based on the combination of historical information, prior notes, and today's exam/ interactions. When time spent is documented, it refers only to time spent today by the signer, or if indicated, combined time spent today by collaborating physician/nurse practitioner. Yoana Godfrey Sep 22, 2017 17:01
[2017-09-22] MEDS: diphenhydrAMINE HCL 50 MG CAP PO PRN (19:56)
--- NOTE | 2017-09-22 22:30 | EKG ---
Date Performed: 09/22/2017 Time Performed: 10:49:16 PTAGE: 82 years EKG: Ventricular pacing. Pacemaker rhythm - no further analysis Abnormal ECG PREVIOUS TRACING : 09/18/2017 23.14 Since the prior tracing, there has been no significant seo DOCTOR: Girish David Interpretating Date/Time 09/22/2017 22:28:05
[2017-09-23] VITALS (28 sets, daily range): BP systolic 90–107; BP diastolic 67–78; PULSE 97–109; RESP 18–20; TEMP 97.6–98.3; O2SAT 96–100
[2017-09-23] MEDS ORDERED: MELATONIN 5 MG TAB PO ONE
[2017-09-23] MEDS ORDERED: RESP: ALBUTEROL 2.5 MG/IPRATROPIUM 0.5 MG NEB (PRN) NEB (02:00)
[2017-09-23] MEDS ORDERED: FUROSEMIDE 20 MG/2 ML VIAL IV PUSH ONE (02:00)
[2017-09-23] MEDS: POTASSIUM CHLORIDE 20 MEQ CONTROLLED RELEASE TAB PO SCH (09:04)
[2017-09-23] MEDS: CALCIUM CARBONATE 500 MG CHEWABLE TAB CHEW SCH ×2 (09:05→20:45)
[2017-09-23] MEDS: CARVEDILOL 6.25 MG TAB PO SCH (09:05)
[2017-09-23] MEDS: ENOXAPARIN SODIUM 30 MG/0.3 ML SYRINGE SQ SCH (09:05)
[2017-09-23] MEDS: AMIODARONE 200 MG TAB PO SCH (09:05)
[2017-09-23] MEDS: GABAPENTIN 300 MG CAP PO SCH ×2 (09:05→20:45)
[2017-09-23] MEDS: SPIRONOLACTONE 25 MG TAB PO SCH (09:05)
[2017-09-23] MEDS: ASPIRIN 81 MG CHEW TAB CHEW SCH (09:05)
[2017-09-23] MEDS: SERTRALINE HCL 50 MG TAB PO SCH (09:05)
[2017-09-23] MEDS: predniSONE 5 MG TAB PO SCH (09:05)
[2017-09-23] MEDS: PRAVASTATIN SOD 80 MG TAB PO SCH (09:05)
[2017-09-23] MEDS: PANTOPRAZOLE SOD 40 MG DELAYED RELEASE TAB PO SCH (09:05)
[2017-09-23] MEDS: LEVOTHYROXINE SODIUM 125 MCG TAB PO SCH (09:06)
[2017-09-23] MEDS: SODIUM CHLORIDE 0.9% FLUSH 10 ML FLUSH IV FLUSH SCH ×2 (09:06→20:45)
[2017-09-23] MEDS: FUROSEMIDE 40 MG TAB PO SCH ×2 (10:13→17:26)
--- NOTE | 2017-09-23 13:20 | HHI.FPPN ---
Subjective Remarks No acute events overnight. Patient's son is present and in discussion was had regarding the plans of family has for the patient. They expressed desire for patient to be able to return to [place] with the hopes that he could take Lasix this is an symptomatic treatment in that transition. He has a granddaughter's birthday tomorrow so they would plan to return to [place] on Monday. Further discussions regarding patient's CODE STATUS will take place later today once daughter Sharita is present. Patient denied chest pain, shortness of breath. Objective Vitals Vital Signs Date Time Temp Pulse Resp B/P (MAP) Pulse Ox O2 Delivery O2 Flow Rate FiO2 09/23/17 13:00 102 09/23/17 12:00 103 09/23/17 11:25 96 Nasal Cannula 2.00 09/23/17 11:20 97.8 98 18 106/70 (82) 96 09/23/17 11:00 103 09/23/17 10:29 Nasal Cannula 3.00 09/23/17 10:00 107 09/23/17 09:00 107 09/23/17 08:00 106 09/23/17 07:23 97.6 106 18 107/78 (88) 100 09/23/17 07:23 100 Nasal Cannula 2.00 09/23/17 07:00 105 09/23/17 06:00 107 09/23/17 05:00 107 09/23/17 04:00 107 09/23/17 03:30 Nasal Cannula 2.00 09/23/17 03:00 109 09/23/17 02:00 09/23/17 02:00 Nasal Cannula 2.00 09/23/17 02:00 105 09/23/17 01:40 101 20 98/76 (83) 96 09/23/17 01:00 104 09/23/17 00:00 104 09/22/17 23:00 97.5 102 18 107/73 (84) 98 09/22/17 23:00 104 09/22/17 23:00 98 Nasal Cannula 2.00 09/22/17 22:00 102 09/22/17 21:00 90 09/22/17 20:00 102 09/22/17 19:30 97.7 102 18 104/74 (84) 100 09/22/17 19:30 100 Nasal Cannula 2.00 09/22/17 19:00 81 09/22/17 18:00 128 09/22/17 17:00 59 09/22/17 16:00 104 09/22/17 16:00 98.0 60 16 112/70 (84) 96 09/22/17 15:00 98 Nasal Cannula 3.00 I/O 09/22/17 09/22/17 09/22/17 09/23/17 09/23/17 09/23/17 07:00 15:00 23:00 07:00 15:00 23:00 Intake Total 240 ml 480 ml 240 ml Output Total 1375 ml 700 ml 400 ml Balance -1135 ml -220 ml -160 ml Intake Oral 240 ml 480 ml 240 ml Output Urine Total 1375 ml 700 ml 400 ml # Voids 0 # Bowel Movements 1 0 0 Result Diagram: 09/22/1744009/22/171 Objective Remarks GENERAL: Older gentleman sitting in upright in chair in no acute distress. Appearing more lethargic than day prior. SKIN: Warm and dry. HEAD: Normocephalic. EYES: No scleral icterus. No injection or drainage. NECK: Supple, trachea midline. No JVD or lymphadenopathy. CARDIOVASCULAR: Regular rate and rhythm without murmurs, gallops, or rubs. RESPIRATORY: Clear to auscultation bilaterally. Breath sounds equal bilaterally. No accessory muscle use. GASTROINTESTINAL: Abdomen soft, non-tender, nondistended. MUSCULOSKELETAL: No cyanosis. 1+ pitting edema up to mid chan bilaterally. No erythema or calf tenderness. BACK: Nontender without obvious deformity. No CVA tenderness. A/P Assessment and Plan Patient is an 82-year-old male with a past medical history significant for systolic CHF with EF <10% with AICD, hypothyroidism, hypertension, and hyperlipidemia who presents for lower extremity edema and is admitted for CHF exacerbation. Discharge Planning Possibly discharge today pending discussion with family Problem List: (1) CHF (NYHA class IV, ACC/AHA stage D) ICD Codes: I50.9 - Heart failure, unspecified Status: Chronic Plan: Acute on chronic CHF 09/04/17 echocardiogram significant for moderately dilated left ventricle, left ventricular systolic function severely reduced with EF less than 20%, diffuse global hypokinesis with distinct regional wall motion abnormalities Patient breathing comfortably on exam without complaints of shortness of breath. O2 saturation 97% on 2L NC. s/p Lasix 40 mg IV 2 in ED on 09/19 s/p Lasix 20mg IV x 1 on 09/19 Continue home Lasix 40 PO BID Cardiology consulted - recommending d/c Norvasc and increase Coreg to 12.5mg daily. Plan: - Continue home medications including amiodarone, clonidine, Lasix, and spironolactone, Coreg 6.25 mg daily - Continue to monitor for signs of fluid overload and adjust Lasix dosing as needed -Encourage patient to sit up in bed with legs below chest or in chair with legs hanging down. -Low-salt diet less than 2 g per day. Fluid restrict to 1.5 L per day. -Strict Is and Os. Daily weights. Supplemental oxygen and monitor on pulse ox. -Patient fears that he may pass away soon. Family expressing desire for patient to return to [place] on Monday. Further discussions will be had regarding possible changing CODE STATUS, hospice possibilities, symptomatic treatment. Patient may be discharged today pending that discussion. -Patient experienced some symptomatic relief with DuoNeb treatments, will continue as needed (2) HTN (hypertension) ICD Codes: I10 - Essential (primary) hypertension Status: Chronic Plan: Stable, continue home medications as described above (3) ED (acute kidney injury) ICD Codes: N17.9 - Acute kidney failure, unspecified Status: Chronic Plan: Creatinine 1.34 on admission, Creat 1.54 on 09/22 Continue to monitor with BMP (4) HLD (hyperlipidemia) ICD Codes: E78.5 - Hyperlipidemia, unspecified Status: Chronic Plan: Continue pravastatin 80 mg by mouth daily (5) Hypothyroidism ICD Codes: E03.9 - Hypothyroidism, unspecified Status: Chronic Plan: TSH 6.64, normal T4 on admission Continue Synthroid 125 g by mouth daily (6) Nutrition, metabolism, and development symptoms ICD Codes: R63.8 - Other symptoms and signs concerning food and fluid intake Status: Acute Plan: Fluids: None Electrolytes: wnl, continue to monitor and replete PRN Nutrition: Heart Healthy DVT ppx: Lovenox 30mg SQ Q24H Problem Qualifiers (1) HTN (hypertension): Qualified Codes: I10 - Essential (primary) hypertension (2) HLD (hyperlipidemia): Qualified Codes: E78.5 - Hyperlipidemia, unspecified (3) Hypothyroidism: Qualified Codes: E03.9 - Hypothyroidism, unspecified Narendra Jean-Baptiste MD R1 Sep 23, 2017 13:20
[2017-09-23] MEDS ORDERED: OXYGENTANK NAS.CANULA (20:55)
[2017-09-23] MEDS: diphenhydrAMINE HCL 50 MG CAP PO PRN (21:54)
[2017-09-23] MEDS: DIAZEPAM 5 MG TAB PO PRN (21:55)
[2017-09-24] VITALS (30 sets, daily range): BP systolic 90–110; BP diastolic 51–81; PULSE 62–109; RESP 18–20; TEMP 97.6–98.4; O2SAT 92–97
[2017-09-24] MEDS: LEVOTHYROXINE SODIUM 125 MCG TAB PO SCH (05:58)
[2017-09-24] MEDS: ASPIRIN 81 MG CHEW TAB CHEW SCH (09:14)
[2017-09-24] MEDS: AMIODARONE 200 MG TAB PO SCH (09:14)
[2017-09-24] MEDS: POTASSIUM CHLORIDE 20 MEQ CONTROLLED RELEASE TAB PO SCH (09:14)
[2017-09-24] MEDS: SERTRALINE HCL 50 MG TAB PO SCH (09:14)
[2017-09-24] MEDS: PRAVASTATIN SOD 80 MG TAB PO SCH (09:14)
[2017-09-24] MEDS: SPIRONOLACTONE 25 MG TAB PO SCH (09:14)
[2017-09-24] MEDS: GABAPENTIN 300 MG CAP PO SCH ×2 (09:14→20:07)
[2017-09-24] MEDS: CALCIUM CARBONATE 500 MG CHEWABLE TAB CHEW SCH ×2 (09:14→20:07)
[2017-09-24] MEDS: PANTOPRAZOLE SOD 40 MG DELAYED RELEASE TAB PO SCH (09:14)
[2017-09-24] MEDS: SODIUM CHLORIDE 0.9% FLUSH 10 ML FLUSH IV FLUSH SCH ×2 (09:15→20:07)
[2017-09-24] MEDS: CARVEDILOL 6.25 MG TAB PO SCH (09:15)
[2017-09-24] MEDS: ENOXAPARIN SODIUM 30 MG/0.3 ML SYRINGE SQ SCH (09:15)
[2017-09-24] MEDS: predniSONE 5 MG TAB PO SCH (09:15)
[2017-09-24] MEDS: FUROSEMIDE 40 MG TAB PO SCH ×2 (09:20→17:22)
--- NOTE | 2017-09-24 10:51 | HHI.FPPN ---
Subjective Remarks Patient seen and examined bedside today. Patient continues to complain of constipation, despite having 2 bowel movements yesterday. The health care is irregular/daughter is present with the nurse and they both state that the patient seems to be improving and is not constipated. He denies any further abdominal pain. He denies any further swelling. No acute events overnight. Objective Vitals Vital Signs Date Time Temp Pulse Resp B/P (MAP) Pulse Ox O2 Delivery O2 Flow Rate FiO2 09/24/17 10:00 103 09/24/17 09:00 104 09/24/17 08:00 107 09/24/17 07:23 96 Nasal Cannula 2.00 09/24/17 07:23 97.6 107 20 110/81 (91) 97 09/24/17 07:00 109 09/24/17 06:37 78 09/24/17 05:30 98 09/24/17 04:10 106 09/24/17 03:58 98.0 105 20 96/64 (75) 96 09/24/17 03:58 96 Nasal Cannula 2.00 09/24/17 03:28 103 09/24/17 02:09 102 09/24/17 01:20 102 09/24/17 00:02 103 09/23/17 23:30 97 Nasal Cannula 2.00 09/23/17 23:30 98.3 102 19 96/67 (77) 97 18 23:30 102 18 22:09 102 18 21:36 101 18 20:30 104 18 19:30 98.0 104 20 93/67 (76) 97 18 19:30 97 Nasal Cannula 2.00 18 19:30 100 18 18:00 102 18 17:00 97 18 16:00 103 09/23/17 15:09 96 Nasal Cannula 2.00 18 15:08 97.9 100 18 90/68 (75) 96 18 15:00 102 18 14:00 100 18 13:00 102 18 12:00 103 09/23/17 11:25 96 Nasal Cannula 2.00 18 11:20 97.8 98 18 106/70 (82) 96 09/23/17 11:00 103 I/O 09/23/17 09/23/17 09/23/17 09/24/17 09/24/17 09/24/17 07:00 15:00 23:00 07:00 15:00 23:00 Intake Total 240 ml 720 ml 240 ml Output Total 400 ml 900 ml 225 ml Balance -160 ml -180 ml 15 ml Intake Oral 240 ml 720 ml 240 ml Output Urine Total 400 ml 900 ml 225 ml # Voids 2 # Bowel Movements 0 1 1 Result Diagram: 09/22/17 0441 09/22/17 0441 Objective Remarks GENERAL: Older gentleman laying in bed, seems to be more comfortable and alert than days prior SKIN: Warm and dry. HEAD: Normocephalic. EYES: No scleral icterus. No injection or drainage. NECK: Supple, trachea midline. No JVD or lymphadenopathy. CARDIOVASCULAR: Regular rate and rhythm without murmurs, gallops, or rubs. RESPIRATORY: Clear to auscultation bilaterally. Breath sounds equal bilaterally. No accessory muscle use. GASTROINTESTINAL: Abdomen soft, non-tender, nondistended. MUSCULOSKELETAL: No cyanosis. 1+ pitting edema up to mid chan bilaterally. No erythema or calf tenderness. BACK: Nontender without obvious deformity. No CVA tenderness. A/P Assessment and Plan Patient is an 82-year-old male with a past medical history significant for systolic CHF with EF <10% with AICD, hypothyroidism, hypertension, and hyperlipidemia who presents for lower extremity edema and is admitted for CHF exacerbation. Discharge Planning Possibly discharge tomorrow morning Problem List: (1) CHF (NYHA class IV, ACC/AHA stage D) ICD Codes: I50.9 - Heart failure, unspecified Status: Chronic Plan: Acute on chronic CHF 09/04/17 echocardiogram significant for moderately dilated left ventricle, left ventricular systolic function severely reduced with EF less than 20%, diffuse global hypokinesis with distinct regional wall motion abnormalities Patient breathing comfortably on exam without complaints of shortness of breath. O2 saturation 97% on 2L NC. s/p Lasix 40 mg IV 2 in ED on 09/19 s/p Lasix 20mg IV x 1 on 09/19 Continue home Lasix 40 PO BID Cardiology consulted - recommending d/c Norvasc and increase Coreg to 12.5mg daily. Plan: - Continue home medications including amiodarone, clonidine, Lasix, and spironolactone, Coreg 6.25 mg daily - Continue to monitor for signs of fluid overload and adjust Lasix dosing as needed -Encourage patient to sit up in bed with legs below chest or in chair with legs hanging down. -Low-salt diet less than 2 g per day. Fluid restrict to 1.5 L per day. -Strict Is and Os. Daily weights. Supplemental oxygen and monitor on pulse ox. -Patient fears that he may pass away soon. Family expressing desire for patient to return to [place] on Monday. Further discussions will be had regarding possible changing CODE STATUS, hospice possibilities, symptomatic treatment. Family will like to go home tomorrow. -Patient experienced some symptomatic relief with DuoNeb treatments, will continue as needed (2) HTN (hypertension) ICD Codes: I10 - Essential (primary) hypertension Status: Chronic Plan: Stable, continue home medications as described above (3) ED (acute kidney injury) ICD Codes: N17.9 - Acute kidney failure, unspecified Status: Chronic Plan: Creatinine 1.34 on admission, Creat 1.54 on 09/22 No need for additional labs at this point (4) HLD (hyperlipidemia) ICD Codes: E78.5 - Hyperlipidemia, unspecified Status: Chronic Plan: Continue pravastatin 80 mg by mouth daily (5) Hypothyroidism ICD Codes: E03.9 - Hypothyroidism, unspecified Status: Chronic Plan: TSH 6.64, normal T4 on admission Continue Synthroid 125 g by mouth daily (6) Nutrition, metabolism, and development symptoms ICD Codes: R63.8 - Other symptoms and signs concerning food and fluid intake Status: Acute Plan: Fluids: None Electrolytes: wnl, continue to monitor and replete PRN Nutrition: Heart Healthy DVT ppx: Lovenox 30mg SQ Q24H Problem Qualifiers (1) HTN (hypertension): Qualified Codes: I10 - Essential (primary) hypertension (2) HLD (hyperlipidemia): Qualified Codes: E78.5 - Hyperlipidemia, unspecified (3) Hypothyroidism: Qualified Codes: E03.9 - Hypothyroidism, unspecified Megha Mcgregor MD R2 Sep 24, 2017 10:51
[2017-09-24] MEDS ORDERED: SOD PHOSPHATE/SOD BIPHOSPHATE (ADULT) ENEMA 133ML RECTAL PRN (13:45)
[2017-09-24] MEDS: DIAZEPAM 5 MG TAB PO PRN (20:07)
[2017-09-24] MEDS: diphenhydrAMINE HCL 50 MG CAP PO PRN (20:07)
[2017-09-25 00:23] VITALS: PULSE 107
[2017-09-25 01:28] VITALS: PULSE 104
[2017-09-25 02:31] VITALS: PULSE 108
[2017-09-25 03:40] VITALS: BP 93/63; PULSE 106; PULSE 109; RESP 19; TEMP 98.2; O2SAT 96
[2017-09-25 04:04] VITALS: PULSE 107
[2017-09-25] MEDS: LEVOTHYROXINE SODIUM 125 MCG TAB PO SCH (04:21)
[2017-09-25] MEDS ORDERED: SPIRONOLACTONE 25 MG TAB PO ONE (05:00)
[2017-09-25] MEDS ORDERED: GABAPENTIN 300 MG CAP PO ONE (05:00)
[2017-09-25] MEDS ORDERED: predniSONE 5 MG TAB PO ONE (05:00)
[2017-09-25] MEDS ORDERED: POTASSIUM CHLORIDE 20 MEQ CONTROLLED RELEASE TAB PO ONE (05:00)
[2017-09-25] MEDS ORDERED: AMIODARONE 200 MG TAB PO ONE (05:00)
[2017-09-25] MEDS ORDERED: PANTOPRAZOLE SOD 40 MG DELAYED RELEASE TAB PO ONE (05:00)
[2017-09-25] MEDS ORDERED: SERTRALINE HCL 50 MG TAB PO ONE (05:00)
[2017-09-25] MEDS ORDERED: CARVEDILOL 6.25 MG TAB PO ONE (05:00)
[2017-09-25] MEDS ORDERED: ASPIRIN 81 MG CHEW TAB CHEW ONE (05:00)
[2017-09-25] MEDS ORDERED: ENOXAPARIN SODIUM 30 MG/0.3 ML SYRINGE SQ ONE (05:00)
[2017-09-25] MEDS ORDERED: PRAVASTATIN SOD 80 MG TAB PO ONE (05:00)
[2017-09-25 05:01] VITALS: PULSE 97
[2017-09-26] MEDS ORDERED: SPIRONOLACTONE 25 MG TAB PO SCH (09:00)
[2017-09-26] MEDS ORDERED: POTASSIUM CHLORIDE 20 MEQ CONTROLLED RELEASE TAB PO SCH (09:00)
[2017-09-26] MEDS ORDERED: PRAVASTATIN SOD 80 MG TAB PO SCH (09:00)
[2017-09-26] MEDS ORDERED: SERTRALINE HCL 50 MG TAB PO SCH (09:00)
[2017-09-26] MEDS ORDERED: ENOXAPARIN SODIUM 30 MG/0.3 ML SYRINGE SQ SCH (09:00)
[2017-09-26] MEDS ORDERED: ASPIRIN 81 MG CHEW TAB CHEW SCH (09:00)
[2017-09-26] MEDS ORDERED: AMIODARONE 200 MG TAB PO SCH (09:00)
[2017-09-26] MEDS ORDERED: CARVEDILOL 6.25 MG TAB PO SCH (09:00)
[2017-09-26] MEDS ORDERED: predniSONE 5 MG TAB PO SCH (09:00)
[2017-09-26] MEDS ORDERED: PANTOPRAZOLE SOD 40 MG DELAYED RELEASE TAB PO SCH (09:00)
[2017-09-26] MEDS ORDERED: GABAPENTIN 300 MG CAP PO SCH (09:00)
[2017-09-26] MEDS ORDERED: FUROSEMIDE 40 MG TAB PO SCH (09:00)
== END 2017-09-25 06:00 | disposition home or self-care (01) ==
LOC: NEPC 23:09 → NEDA 09-19 01:14 → HCPC 09-19 03:52
PROVIDERS: ADMIT Family Medicine; ATTEND Family Medicine
DX: I50.23 Acute on chronic systolic (congestive) heart failure (principal); I50.84 End stage heart failure; I13.0 Hypertensive heart and chronic kidney disease with heart failure and stage 1 through stage 4 chronic kidney disease, or unspecified chronic kidney disease; N18.9 Chronic kidney disease, unspecified; E11.22 Type 2 diabetes mellitus with diabetic chronic kidney disease; I25.10 Atherosclerotic heart disease of native coronary artery without angina pectoris; I25.5 Ischemic cardiomyopathy; I35.9 Nonrheumatic aortic valve disorder, unspecified; N17.9 Acute kidney failure, unspecified; E78.5 Hyperlipidemia, unspecified; E03.9 Hypothyroidism, unspecified; R63.8 Other symptoms and signs concerning food and fluid intake; N28.1 Cyst of kidney, acquired; I71.4 Abdominal aortic aneurysm, without rupture; I25.2 Old myocardial infarction; F41.9 Anxiety disorder, unspecified; F32.9 Major depressive disorder, single episode, unspecified; Z79.82 Long term (current) use of aspirin; Z79.899 Other long term (current) drug therapy; Z95.810 Presence of automatic (implantable) cardiac defibrillator; Z95.1 Presence of aortocoronary bypass graft; Z95.5 Presence of coronary angioplasty implant and graft; Z66 Do not resuscitate
CPT/HCPCS: 71045; 74176; 80048; 80053; 82550; 82948; 83690; 83735; 83880; 84439; 84443; 84484; 85025; 85610; 85730; 93005; 94150; 94618; 96372; 96374; 96375; 97110; 97116; 97162; 99285; G0378; G8987; G8988; J1200; J1650; J1940; J2405; J7512; Q0163